=== PATIENT | female | born 1985 | race Caucasian/White ===

== ENCOUNTER 2019-09-14 08:28 | Emergency (ER) | payer OTHER, SELFPAY ==
[2019-09-14 09:10] VITALS: BP 113/79; PULSE 94; RESP 20; TEMP 36.7; O2SAT 98
[2019-09-14 09:42] LABS: Influenza Control Valid (Valid)
[2019-09-14 09:58] VITALS: BP 110/70; PULSE 90; RESP 18; O2SAT 98
--- NOTE | 2019-09-14 10:06 | ED.URI ---
HPI - URI/Sore Throat General Chief Complaint: Upper Respiratory Infection Stated Complaint: weak feeling, chills, headache Source: patient Mode of arrival: ambulatory Limitations: no limitations History of Present Illness HPI Narrative: Kayley Mondragon is a 34-year-old who woke up during the night with myalgias, bitemporal headache, and burning pain in her anterior chest when she coughs. She was seen by her PCP a week ago with sinus pain, pressure and drainage. She was started on amoxicillin those symptoms have resolved. She has history of asthma. There has been some wheezing associated with these symptoms which would respond to albuterol metered-dose inhaler. she comes in with 2 of her children both with URI symptoms. Associated symptoms: fever and chills Related Data Home Medications Medication Instructions Recorded Confirmed gabapentin 300 mg PO TID 06/14/19 09/14/19 hydrocodone-acetaminophen 5.325 tablet PO QID 06/14/19 09/14/19 lorazepam 1 mg PO TID PRN 06/14/19 09/14/19 meloxicam 1 mg PO DAILY 06/14/19 09/14/19 sumatriptan succinate See Rx Instructions .ROUTE 06/14/19 09/14/19 .COMPLEX PRN MDD 2 tablets tizanidine 4 mg PO TID 06/14/19 09/14/19 topiramate 25 mg PO BID 06/14/19 09/14/19 Allergies Allergy/AdvReac Type Severity Reaction Status Date / Time No Known Allergies Allergy Verified 02/26/18 13:03 Review of Systems Constitutional: Constitutional: Reports no additional constitutional complaints, Denies chills and Denies fever(s) ENT: Denies nasal congestion Cardiovascular: Cardiovascular: Reports no additional cardiovascular complaints Respiratory: Respiratory: Denies dyspnea Gastrointestinal: Gastrointestinal: Denies abdominal pain, Denies diarrhea and Denies vomiting Musculoskeletal: Musculoskeletal: Reports myalgias PMFSH Past Medical History Medical History Anxiety Back pain Migraine Surgical History Surgical History History of cholecystectomy Social History Social History Smoking status: Former smoker Alcohol intake: former Substance use: never Exam Const: General: no acute distress Orientation/consciousness: patient oriented x3 HENMT: Face and sinus: no sinus tenderness Mouth: Yes Normal oral and palatal mucosa present Eyes: Conjunctivae: conjunctivae normal Neck: Neck: no lymphadenopathy Chest: Chest palpation & inspection: normal inspection of the chest Resp: Auscultation: clear to auscultation bilaterally Cardio: Rate: regular rate Rhythm: regular rhythm Course Vital Signs Vital signs: Vital Signs Temperature 36.7 C 09/14/19 09:10 Pulse Rate 94 09/14/19 09:10 Respiratory Rate 20 09/14/19 09:10 Blood Pressure 113/79 09/14/19 09:10 Pulse Oximetry 98 09/14/19 09:10 Temperature 36.7 C 09/14/19 09:10 Pulse Rate 90 09/14/19 09:58 Respiratory Rate 18 09/14/19 09:58 Blood Pressure 110/70 09/14/19 09:58 Pulse Oximetry 98 09/14/19 09:58 MDM - URI/Sore Throat Differential Diagnosis Differential diagnosis: Likely upper respiratory infection, viral infection and bronchitis Lab Data Labs: Lab Results 09/14/19 Range/Units 09:10 Influenza Type A Ag Negative (Negative) Influenza Type B Ag Negative (Negative) Discharge Plan Discharge Clinical Impression: Bronchitis, Upper respiratory disease Patient Disposition: Home, Self-Care Condition: Stable Instructions: Antibiotic Form, Acute Bronchitis (ED), Viral Syndrome (ED) Prescriptions: No Action tizanidine 4 mg tablet 4 mg PO TID RF: 0 sumatriptan succinate 100 mg tablet See Rx Instructions .ROUTE .COMPLEX MDD 2 tablets PRN (Reason: Headache) RF: 0 hydrocodone-acetaminophen 5-325 mg tablet 5.325 tablet PO QID RF: 0 meloxicam 15 mg tablet 1 mg PO DAILY R
== END 2019-09-14 10:16 | disposition home or self-care (01) ==
PROVIDERS: Emergency Provider Family Medicine; PCP Internal Medicine
DX: J40 Bronchitis, not specified as acute or chronic (principal)
CPT/HCPCS: 87804; 99282; 99283

== ENCOUNTER 2019-09-18 15:11 | Outpatient (CLI) | payer OTHER, SELFPAY ==
--- NOTE | ~2019-09-18 | XR_ITS ---
EXAMINATION: XR chest 2V DATE: 09/18/2019 15:26 INDICATION: Cough, bronchitis TECHNIQUE: PA and lateral views of the chest are obtained. COMPARISON: 09/08/2012 FINDINGS: The lungs are free of acute opacities. There is no pleural effusion or pneumothorax. The ca rdiomediastinal silhouette is normal. The visualized bones and soft tissues are unremarkable. Surgica l clips in the right upper quadrant are likely from prior cholecystectomy. IMPRESSION: 1. No acute cardiopulmonary abnormality. Reviewed, dictated and finalized at location [facility]
== END 2019-09-18 15:12 | disposition home or self-care (01) ==
LOC: CHSIMG 15:14
PROVIDERS: PCP Internal Medicine; Visit Provider Internal Medicine
DX: R05 Cough (principal)
CPT/HCPCS: 71046

== ENCOUNTER 2020-01-11 15:12 | Emergency (ER) | payer OTHER, SELFPAY ==
[2020-01-11 15:14] VITALS: BP 133/83; PULSE 82; RESP 20; TEMP 36.3; O2SAT 100
[2020-01-11] MEDS: KETOROLAC 30 MG/ML VIAL (*BKC) IV PUSH (15:50)
[2020-01-11] MEDS: METOCLOPRAMIDE HCL INJ 10 MG/2 ML VIAL IV PUSH (15:51)
[2020-01-11] MEDS: SODIUM CHLORIDE 0.9% IV 1,000 ML 999 ML IV CONT (15:51)
--- NOTE | 2020-01-11 15:54 | ED.HA ---
HPI - Headache General Chief Complaint: Headache Stated Complaint: Migraine Time Seen by Provider: 01/11/20 15:29 History of Present Illness HPI Narrative: Patient is a 34-year-old female who presents to the ER with headache. Began earlier this morning is a tension headache but has become migraine. She is been having migraines since she was 8 years old. Patient had a tooth pulled at the dentist yesterday and feels like discomfort from that has caused migraine. She is out of her migraine medication cannot get a refill for 6 days. No fevers or chills or sweats. No nausea/vomiting. No drainage from the tooth site. No neck pain. She does have photophobia. Related Data Home Medications Medication Instructions Recorded Confirmed gabapentin 300 mg PO TID 06/14/19 09/14/19 hydrocodone-acetaminophen 5.325 tablet PO QID 06/14/19 09/14/19 lorazepam 1 mg PO TID PRN 06/14/19 09/14/19 meloxicam 1 mg PO DAILY 06/14/19 09/14/19 sumatriptan succinate See Rx Instructions .ROUTE 06/14/19 09/14/19 .COMPLEX PRN MDD 2 tablets tizanidine 4 mg PO TID 06/14/19 09/14/19 topiramate 25 mg PO BID 06/14/19 09/14/19 Allergies Allergy/AdvReac Type Severity Reaction Status Date / Time No Known Allergies Allergy Verified 01/11/20 15:17 Review of Systems Review of Systems: All systems reviewed & are unremarkable except as noted in HPI and below Constitutional: Constitutional: Denies chills, Denies fever(s) and Denies weakness Eyes: Eyes: Denies change in vision and Reports photophobia ENT: Denies nasal congestion and Denies sore throat Comments: Mild dental pain Neurologic: Denies syncope, Denies focal weakness and Denies numbness PMFSH Social History Social History Smoking status: Former smoker Alcohol intake: former Substance use: never Gender identity (if verbalized by the patient): Female Exam Narrative: Exam Narrative: GENERAL: Well-appearing, well-nourished, and in no acute distress. HEAD: Normocephalic, atraumatic. EYES: PERRL and EOMI. ENT: Mucous membranes moist. CHEST: Clear to auscultation. No respiratory distress. HEART: Regular rate and rhythm. Normal peripheral pulses. EXTREMITIES: Normal range of motion. No edema. NEURO: Alert and oriented x3. PSYCH: Normal mood and affect. Course Course Emergency Course: Headache aborted with Reglan/Benadryl/Toradol/IV fluid. Discharge home. Vital Signs Vital signs: Vital Signs Temperature 97.3 F L 01/11/20 15:14 Pulse Rate 82 01/11/20 15:14 Respiratory Rate 20 01/11/20 15:14 Blood Pressure 133/83 01/11/20 15:14 Pulse Oximetry 100 01/11/20 15:14 Temperature 97.3 F L 01/11/20 15:14 Pulse Rate 82 01/11/20 15:14 Respiratory Rate 20 01/11/20 15:14 Blood Pressure 133/83 01/11/20 15:14 Pulse Oximetry 100 01/11/20 15:14 Discharge Plan Discharge Clinical Impression: Migraine Patient Disposition: Home, Self-Care Condition: Stable Instructions: Migraine Headache (ED) Additional Instructions: Return to the ER if you have fever over 100.4 ?F, you cannot keep down food or water, you have chest pain or shortness of breath, you have additional concerns. Prescriptions: No Action tizanidine 4 mg tablet 4 mg PO TID RF: 0 sumatriptan succinate 100 mg tablet See Rx Instructions .ROUTE .COMPLEX MDD 2 tablets PRN (Reason: Headache) RF: 0 hydrocodone-acetaminophen 5-325 mg tablet 5.325 tablet PO QID RF: 0 meloxicam 15 mg tablet 1 mg PO DAILY RF: 0 topiramate 25 mg tablet 25 mg PO BID RF: 0 gabapentin 300 mg capsule 300 mg PO TID RF: 0 lorazepam 1 mg tablet 1 mg PO TID PRN (Reason: Anxiety) RF: 0 Follow-up/Referrals: Guillermo,Kal Regan MD [Primary Care Provider] - 1 Week
--- NOTE | 2020-01-11 16:41 | PC.NURSE ---
Sleeping. In no distress.
== END 2020-01-11 17:10 | disposition home or self-care (01) ==
PROVIDERS: Emergency Provider Emergency Medicine; PCP Internal Medicine
DX: G43.909 Migraine, unspecified, not intractable, without status migrainosus (principal); Z87.891 Personal history of nicotine dependence
CPT/HCPCS: 96361; 96374; 96375; 99284; J1200; J1885; J2765; J7030

== ENCOUNTER 2020-02-02 17:09 | Emergency (ER) | payer OTHER, SELFPAY ==
[2020-02-02 17:25] VITALS: BP 108/63; PULSE 79; RESP 17; TEMP 37.1; O2SAT 98
--- NOTE | 2020-02-02 17:34 | ED.LOWEXIN ---
HPI - Extremity Injury (Lower) General Chief Complaint: Extremity Problem,Nontraumatic Stated Complaint: pain in both big toes Time Seen by Provider: 02/02/20 17:34 Source: patient Mode of arrival: ambulatory Limitations: no limitations History of Present Illness HPI Narrative: 34-year-old woman comes in today complaining of bilateral great toe pain and drainage from around her great toenails. She states that on January 22 she had revision of that nail plates bilaterally. She states that she began notice increasing pain and drainage from her nose yesterday. She denies fever, nausea, vomiting or red streaks going up her legs. She states she had some leftover Augmentin that she began taking yesterday. Onset (ago): day(s) (2) Injury: Bilateral: toes (hallux) Place: home Severity: moderate Relieving factors: nothing Exacerbating factors: palpation Context: walking Associated symptoms: swelling and ambulatory Related Data Home Medications Medication Instructions Recorded Confirmed gabapentin 300 mg PO TID 06/14/19 02/02/20 hydrocodone-acetaminophen 5.325 tablet PO QID 06/14/19 02/02/20 lorazepam 1 mg PO TID PRN 06/14/19 02/02/20 meloxicam 1 mg PO DAILY 06/14/19 02/02/20 sumatriptan succinate See Rx Instructions .ROUTE 06/14/19 02/02/20 .COMPLEX PRN MDD 2 tablets tizanidine 4 mg PO TID 06/14/19 02/02/20 topiramate 25 mg PO BID 06/14/19 02/02/20 Allergies Allergy/AdvReac Type Severity Reaction Status Date / Time No Known Allergies Allergy Verified 01/11/20 15:17 Review of Systems Constitutional: Constitutional: Denies chills and Denies fever(s) ENT: Denies dysphagia, Denies nasal congestion and Denies sore throat Cardiovascular: Cardiovascular: Denies chest pain and Denies radiating jaw, neck or arm pain Respiratory: Respiratory: Denies cough, Denies dyspnea and Denies wheezing Gastrointestinal: Gastrointestinal: Denies nausea and Denies vomiting Integumentary/Breasts: Skin/Breast: Denies pruritus, Denies rash and Denies skin ulcer Neurologic: Denies vertigo, Denies dizziness and Denies syncope Hematologic/Lymphatic: Hematologic/Lymphatic: Denies easy bleeding and Denies easy bruising Allergic/Immunologic: Allergic/Immunologic: Denies lip swelling and Denies wheezing PMFSH Past Medical History Medical History Anxiety Back pain Migraine Surgical History Surgical History History of cholecystectomy Social History Social History Smoking status: Former smoker Alcohol intake: former Substance use: never Gender identity (if verbalized by the patient): Female Exam Const: General: alert Orientation/consciousness: patient oriented x3 Limitations: no limitations Other: Mild acute distress. Resp: Effort & Inspection: normal respiratory effort and not labored Auscultation: clear to auscultation bilaterally, no rales, no rhonchi and no wheezes Cardio: Rate: regular rate Rhythm: regular rhythm Heart sounds: no murmurs Skin: General skin exam: normal color, no jaundice and no pallor Rashes: no rashes Other: Both nail plates have been modified on the medial and lateral aspects. There is pus draining from the eponychial fold bilaterally. She has mild dorsal swelling more on the left than the right. There is no tenderness or induration to palpation of the heads of either toe. There is no lymphangitis or tenderness proximal to the IP joint Neuro: General: patient oriented x3, moves all extremities, no focal motor deficits and CN's II-XI intact bilaterally Speech: normal speech Extrem: General: normal to inspection and no clubbing, cyanosis or edema Psych: Appearance: grossly normal and well kempt Mental Status: mental status grossly normal Affect: normal affect Attitude: cooperative Thought content: Yes Normal thought cont
[2020-02-02 17:52] VITALS: RESP 16
== END 2020-02-02 17:56 | disposition home or self-care (01) ==
PROVIDERS: Emergency Provider Emergency Medicine; PCP Internal Medicine
DX: L03.032 Cellulitis of left toe (principal); L03.031 Cellulitis of right toe
CPT/HCPCS: 99283

== ENCOUNTER 2020-05-08 12:35 | Emergency (ER) | payer OTHER, SELFPAY ==
[2020-05-08 12:49] VITALS: BP 130/83; PULSE 73; RESP 18; TEMP 36.8; O2SAT 100
--- NOTE | 2020-05-08 12:51 | ED.GENADULT ---
HPI - General Adult General Chief complaint: Headache Stated complaint: migraine Time Seen by Provider: 05/08/20 12:41 Source: RN notes reviewed History of Present Illness HPI narrative: Patient presents to emergency department from home for headache. Patient that she has a history of migraine headaches which she has approximately 2-3 times a week. Says she woke up with a migraine this morning took Imitrex with minimal relief and continues to have the headache. States is associated with nausea and photophobia she denies any fevers or chills chest pain shortness of breath abdominal pain or any other symptoms. She does state that she took a [place] approximately 2 hours ago Related Data Home Medications Medication Instructions Recorded Confirmed gabapentin 300 mg PO TID 06/14/19 02/02/20 hydrocodone-acetaminophen 5.325 tablet PO QID 06/14/19 02/02/20 lorazepam 1 mg PO TID PRN 06/14/19 02/02/20 meloxicam 1 mg PO DAILY 06/14/19 02/02/20 sumatriptan succinate See Rx Instructions .ROUTE 06/14/19 02/02/20 .COMPLEX PRN MDD 2 tablets tizanidine 4 mg PO TID 06/14/19 02/02/20 topiramate 25 mg PO BID 06/14/19 02/02/20 Allergies Allergy/AdvReac Type Severity Reaction Status Date / Time No Known Allergies Allergy Verified 05/08/20 12:54 Review of Systems Review of Systems: Narrative: Gen.: Denies fevers or chills Eyes: Denies eye pain or visual change ENT: Denies congestion Respiratory: Denies shortness of breath or cough CV: Denies chest pain or palpitations GI: Denies abdominal pain nausea, emesis or diarrhea denies burning, urgency, frequency or hematuria Musculoskeletal: Denies back pain or muscle pain Neuro: HPI Skin: Denies rash Except as documented, all other systems reviewed and negative [facility] Past Medical History Medical History (Updated 05/08/20 @ 16:55 by Vinny Sheldon DO) Anxiety Back pain Migraine Surgical History Surgical History History of cholecystectomy Social History Social History Smoking status: Former smoker Alcohol intake: former Substance use: never Gender identity (if verbalized by the patient): Female Exam Narrative: Exam Narrative: APPEARANCE: No acute distress, nontoxic, resting in bed EYES: EOMI, PERRL HEENT: Normocephalic, atraumatic, OMM RESPIRATORY: No respiratory distress Clear to auscultation bilaterally with no rhonchi wheezing or rales. CARDIOVASCULAR: Regular rate and rhythm without murmurs rubs or gallops. ABDOMINAL: Soft, nontender, nondistended, no rebound or guarding MUSCULOSKELETAl: Moves all extremities. No clubbing, cyanosis or edema. NEURO: Awake and alert x 3. Following commands, speech normal, no focal deficits SKIN:: Warm, dry. No rashes lesions or abrasions PSYCHIATRIC: Normal affect/mood, Course Course Emergency Course: Reviewed old records Patient states headache is resolved at this time and is ready for discharge Discussed with patient results of workup and diagnosis. Discussed need for follow-up with primary care, proper use of medication, and reasons to return to the emergency department. Patient understands and agrees to current treatment plan Vital Signs Vital signs: Vital Signs Temperature 98.3 F 05/08/20 12:49 Pulse Rate 73 05/08/20 12:49 Respiratory Rate 18 05/08/20 12:49 Blood Pressure 130/83 05/08/20 12:49 Pulse Oximetry 100 05/08/20 12:49 Temperature 98.3 F 05/08/20 12:49 Pulse Rate 65 05/08/20 15:28 Respiratory Rate 15 05/08/20 15:28 Blood Pressure 121/82 05/08/20 15:28 Pulse Oximetry 99 05/08/20 15:28 Medical Decision Making MDM Narrative Medical decision making narrative: Patient's headache was not sudden or maximal in onset. There are no focal deficits on exam. Subarachnoid hemorrhage is felt to be unlikely at this time. There is no history of fever and neck is supple to e
[2020-05-08] MEDS: ONDANSETRON INJ 4 MG/2 ML VIAL IV PUSH (13:11)
[2020-05-08] MEDS: KETOROLAC 30 MG/ML VIAL (*BKC) IV PUSH (13:11)
[2020-05-08] MEDS: diphenhydrAMINE HCl INJ 50 MG/ML VIAL 25 MG IV PUSH (13:11)
[2020-05-08] MEDS: SODIUM CHLORIDE 0.9% IV 1,000 ML 999 ML IV CONT ×2 (13:11→15:26)
[2020-05-08 15:28] VITALS: BP 121/82; PULSE 65; RESP 15; O2SAT 99
[2020-05-08 17:06] VITALS: BP 112/83; PULSE 73; RESP 20; O2SAT 98
== END 2020-05-08 17:08 | disposition home or self-care (01) ==
PROVIDERS: Emergency Provider Emergency Medicine; PCP Internal Medicine
DX: R51.9 Headache, unspecified (principal); F41.9 Anxiety disorder, unspecified; Z87.891 Personal history of nicotine dependence
CPT/HCPCS: 96361; 96374; 96375; 99284; J0131; J1200; J1885; J2405; J7030

== ENCOUNTER 2021-03-14 12:54 | Emergency (ER) | payer OTHER, SELFPAY ==
[2021-03-14 13:43] VITALS: BP 148/98; PULSE 81; RESP 20; TEMP 36.6; O2SAT 98
[2021-03-14] MEDS: SUMAtriptan SUCCINATE 6 MG/0.5 ML VIAL SUB-Q (14:05)
--- NOTE | 2021-03-14 14:25 | ED.HA ---
HPI - Headache General Chief Complaint: Headache Stated Complaint: headache Time Seen by Provider: 03/14/21 12:56 Source: patient and RN notes reviewed Mode of arrival: ambulatory Limitations: no limitations History of Present Illness MD elicited complaint: headache and migraine Pertinent past history: migraines Onset (ago): hour(s) (4) Onset description: suddenly Location: frontal and generalized Severity: mild Quality & Timing: aching, throbbing, dull and similar to previous headaches Exacerbating factors: none Relieving factors: prescription medication Context: occurred at rest Treatments prior to arrival: prescription analgesic Related Data Home Medications Medication Instructions Recorded Confirmed gabapentin 300 mg PO TID 06/14/19 03/14/21 hydrocodone-acetaminophen 5.325 tablet PO QID 06/14/19 03/14/21 lorazepam 1 mg PO TID PRN 06/14/19 03/14/21 sumatriptan succinate See Rx Instructions .ROUTE 06/14/19 03/14/21 .COMPLEX PRN MDD 2 tablets tizanidine 4 mg PO TID 06/14/19 03/14/21 topiramate 25 mg PO BID 06/14/19 03/14/21 Allergies Allergy/AdvReac Type Severity Reaction Status Date / Time No Known Allergies Allergy Verified 03/14/21 13:55 Review of Systems Review of Systems: All systems reviewed & are unremarkable except as noted in HPI and below PMFSH Past Medical History Medical History Anxiety Back pain Migraine Surgical History Surgical History History of cholecystectomy Social History Social History Smoking status: Former smoker Alcohol intake: former Substance use: never Gender identity (if verbalized by the patient): Female Exam Const: General: healthy appearing, no acute distress and alert Orientation/consciousness: patient oriented x3 HENMT: Head: normal to inspection Ears: external ears normal and TM's normal bilaterally General nose exam: Normal external nose present and Normal nares present Mouth: Yes lip normal and Yes moist mucous membranes abnormal Teeth and gingiva: dentition normal Eyes: Conjunctivae: conjunctivae normal Pupils: Equal, round and reactive pupils present EOM: EOMs intact bilaterally Neck: Neck: normal visual inspection and no lymphadenopathy Chest: Chest palpation & inspection: normal inspection of the chest Resp: Effort & Inspection: normal respiratory effort Auscultation: clear to auscultation bilaterally Cardio: Rate: regular rate Rhythm: regular rhythm GI: GI Palp: Yes Soft to palpation Percussion: Yes normal to percussion (non-tender) Auscultation: normal bowel sounds : General: Yes bladder normal to palpation and Yes no CVA tenderness Back/Spine/Pelvis: Back: no CVA tenderness Skin: General skin exam: normal color Rashes: no rashes Neuro: General: patient oriented x3, moves all extremities, no focal motor deficits and CN's II-XI intact bilaterally Extrem: General: normal to inspection and no pedal edema Psych: Appearance: grossly normal and well kempt Mental Status: mental status grossly normal Affect: normal affect Thought content: Yes Normal thought content present Course Course Emergency Course: Pt was stable with less ARIZA in the ED. For home with Rx. Reevaluation(s) Reevaluation #1: less ARIZA, pt was comfortable. VSS. Date: 03/14/21 Time: 14:29 Vital Signs Vital signs: Vital Signs Temperature 36.6 C 03/14/21 13:43 Pulse Rate 81 03/14/21 13:43 Respiratory Rate 20 03/14/21 13:43 Blood Pressure 148/98 H 03/14/21 13:43 Pulse Oximetry 98 03/14/21 13:43 Temperature 36.9 C 03/14/21 14:57 Pulse Rate 77 03/14/21 14:57 Respiratory Rate 20 03/14/21 14:57 Blood Pressure 136/96 H 03/14/21 14:57 Pulse Oximetry 99 03/14/21 14:57 MDM - Headache Differential Diagnosis Differential diagnosis: Likely migraine, tensio
[2021-03-14 14:57] VITALS: BP 136/96; PULSE 77; RESP 20; TEMP 36.9; O2SAT 99
== END 2021-03-14 15:00 | disposition home or self-care (01) ==
PROVIDERS: Emergency Provider Emergency Medicine; PCP Internal Medicine
DX: G43.909 Migraine, unspecified, not intractable, without status migrainosus (principal)
CPT/HCPCS: 96372; 99283; J3030

== ENCOUNTER → 2021-04-01 02:58 | Outpatient (CLI) | payer OTHER, SELFPAY ==
[2021-04-02 18:57] LABS: SARS-CoV-2 RNA PCR Positive
== END ==
PROVIDERS: PCP Internal Medicine; Visit Provider Internal Medicine
DX: U07.1 COVID-19 (principal)
CPT/HCPCS: C9803; U0003; U0005

== ENCOUNTER 2021-04-06 10:13 | Emergency (ER) | payer OTHER, SELFPAY ==
[2021-04-06 10:35] VITALS: BP 136/96; PULSE 84; RESP 18; TEMP 36.4; O2SAT 99
--- NOTE | 2021-04-06 10:37 | ED.HA ---
HPI - Headache General Chief Complaint: Headache Stated Complaint: migraine/Covid + quar end 04/08 Time Seen by Provider: 04/06/21 10:37 Source: patient Mode of arrival: ambulatory Limitations: no limitations History of Present Illness HPI Narrative: 35-year-old woman with long history of migraine headaches comes in today complaining of throbbing right-sided head pain that is typical for her migraines. She stated it started a couple of days ago but she is out of her medication to abort the headache. She has had some vomiting but denies fever, neck stiffness, focal weakness, numbness, and visual changes other than photophobia. MD elicited complaint: migraine Onset (ago): day(s) Onset description: gradually Location: right, frontal and temporal Severity: severe Quality & Timing: throbbing Exacerbating factors: light Relieving factors: nothing Context: occurred at rest Associated symptoms: vomiting Treatments prior to arrival: none Related Data Home Medications Medication Instructions Recorded Confirmed gabapentin 300 mg PO TID 06/14/19 04/06/21 hydrocodone-acetaminophen 5.325 tablet PO QID 06/14/19 04/06/21 sumatriptan succinate See Rx Instructions .ROUTE 06/14/19 04/06/21 .COMPLEX PRN MDD 2 tablets tizanidine 4 mg PO TID 06/14/19 04/06/21 topiramate 25 mg PO BID 06/14/19 04/06/21 benzonatate 200 mg PO PRN 04/06/21 04/06/21 montelukast 10 mg PO DAILY 04/06/21 04/06/21 sertraline 100 mg PO DAILY 04/06/21 04/06/21 Allergies Allergy/AdvReac Type Severity Reaction Status Date / Time No Known Allergies Allergy Verified 03/14/21 13:55 Review of Systems Review of Systems: All systems reviewed & are unremarkable except as noted in HPI and below Constitutional: Constitutional: Denies chills, Denies fever(s) and Denies weakness Eyes: Eyes: Denies change in vision and Reports photophobia ENT: Reports nasal congestion and Denies sore throat Cardiovascular: Cardiovascular: Denies chest pain and Denies radiating jaw, neck or arm pain Respiratory: Respiratory: Reports cough, Denies dyspnea and Denies wheezing Gastrointestinal: Gastrointestinal: Denies abdominal pain, Reports nausea and Reports vomiting Musculoskeletal: Musculoskeletal: Reports back pain ( Chronic), Denies arthralgias and Denies joint swelling Integumentary/Breasts: Skin/Breast: Denies pruritus, Denies erythema and Denies rash Neurologic: Denies confusion, Denies vertigo, Denies dizziness, Denies syncope, Denies focal weakness and Reports numbness ( chronic lower extremity) Hematologic/Lymphatic: Hematologic/Lymphatic: Denies easy bleeding and Denies easy bruising Allergic/Immunologic: Allergic/Immunologic: Denies lip swelling and Denies throat swelling PMFSH Past Medical History Medical History Anxiety Back pain Migraine Surgical History Surgical History History of cholecystectomy Social History Social History Smoking status: Former smoker Alcohol intake: former Substance use: never Gender identity (if verbalized by the patient): Female Exam Const: General: healthy appearing and alert Orientation/consciousness: patient oriented x3 Limitations: no limitations Other: [id number] acute distress. HENMT: Head: normal to inspection Ears: TM's normal bilaterally and EAC's normal General nose exam: Normal nares present Face and sinus: normal facial exam Mouth: Yes moist mucous membranes abnormal Throat: posterior oropharynx normal Eyes: Conjunctivae: conjunctivae normal Pupils: Equal, round and reactive pupils present EOM: EOMs intact bilaterally Resp: Effort & Inspection: normal respiratory effort and not labored Auscultation: clear to auscultation bilaterally, no rales, no rhonchi and no wheezes Cardio: Rate: regular rate Rhythm: regular rhythm Hear
[2021-04-06] MEDS: SUMAtriptan SUCCINATE 6 MG/0.5 ML VIAL SUB-Q (10:54)
[2021-04-06 11:19] VITALS: BP 130/80; PULSE 77; RESP 18; TEMP 36.6; O2SAT 99
== END 2021-04-06 11:21 | disposition home or self-care (01) ==
PROVIDERS: Emergency Provider Emergency Medicine; PCP Internal Medicine
DX: G43.909 Migraine, unspecified, not intractable, without status migrainosus (principal)
CPT/HCPCS: 96372; 99283; J3030

== ENCOUNTER 2021-07-01 18:01 | Emergency (ER) | payer OTHER, SELFPAY ==
[2021-07-01 18:14] VITALS: BP 146/99; PULSE 78; RESP 18; TEMP 36.8; O2SAT 99
--- NOTE | 2021-07-01 18:39 | ED.HA ---
HPI - Headache General Chief Complaint: Headache Stated Complaint: migraine Source: patient Mode of arrival: ambulatory Limitations: no limitations History of Present Illness HPI Narrative: This is a 36-year-old female with a history of migraines that presents with her typical migraine headache with throbbing light sensitivity affecting the right eye with some blurry vision light sensitivity with some nausea with some no vomiting no chest pain no shortness of breath no fever or chills no neck pain or stiffness. MD elicited complaint: headache and migraine Pertinent past history: migraines Onset (ago): hour(s) Onset description: gradually Location: right and frontal Severity: moderate Quality & Timing: throbbing and pulsatile Related Data Home Medications Medication Instructions Recorded Confirmed gabapentin 300 mg PO TID 06/14/19 04/06/21 hydrocodone-acetaminophen 5.325 tablet PO QID 06/14/19 04/06/21 sumatriptan succinate See Rx Instructions .ROUTE 06/14/19 04/06/21 .COMPLEX PRN MDD 2 tablets tizanidine 4 mg PO TID 06/14/19 04/06/21 topiramate 25 mg PO BID 06/14/19 04/06/21 benzonatate 200 mg PO PRN 04/06/21 04/06/21 montelukast 10 mg PO DAILY 04/06/21 04/06/21 sertraline 100 mg PO DAILY 04/06/21 04/06/21 Allergies Allergy/AdvReac Type Severity Reaction Status Date / Time No Known Allergies Allergy Verified 07/01/21 18:14 Review of Systems Review of Systems: All systems reviewed & are unremarkable except as noted in HPI and below PMFSH Past Medical History Medical History Anxiety Back pain Migraine Surgical History Surgical History History of cholecystectomy Social History Social History Smoking status: Former smoker Alcohol intake: former Substance use: never Gender identity (if verbalized by the patient): Female Exam Const: General: no acute distress Orientation/consciousness: patient oriented x3 HENMT: Head: normal to inspection Eyes: Conjunctivae: conjunctivae normal Pupils: Equal, round and reactive pupils present Direct Ophthalmoscopy: photophobia Neck: Neck: normal visual inspection, no lymphadenopathy and no meningeal signs Chest: Chest palpation & inspection: normal inspection of the chest Resp: Effort & Inspection: normal respiratory effort Auscultation: clear to auscultation bilaterally Cardio: Rate: regular rate Rhythm: regular rhythm GI: GI Palp: Yes Soft to palpation Percussion: Yes normal to percussion : General: Yes no CVA tenderness Urinary Catheter: Urinary Catheter: patent and draining Back/Spine/Pelvis: Back: no CVA tenderness Skin: General skin exam: normal color Rashes: no rashes Neuro: General: patient oriented x3, moves all extremities, no meningeal signs and no focal motor deficits Extrem: General: normal to inspection and no pedal edema Psych: Mental Status: mental status grossly normal Affect: normal affect Course Course Emergency Course: Toradol and Zofran given to patient with some moderate relief. Vital Signs Vital signs: Vital Signs Temperature 36.8 C 07/01/21 18:14 Pulse Rate 78 07/01/21 18:14 Respiratory Rate 18 07/01/21 18:14 Blood Pressure 146/99 H 07/01/21 18:14 Pulse Oximetry 99 07/01/21 18:14 Temperature 36.8 C 07/01/21 18:14 Pulse Rate 78 07/01/21 18:14 Respiratory Rate 18 07/01/21 18:14 Blood Pressure 146/99 H 07/01/21 18:14 Pulse Oximetry 99 07/01/21 18:14 Critical Care Time Critical Care Time Critical Care Time: No Discharge Plan Discharge Clinical Impression: Migraine Qualifiers: Migraine type: with aura Status migrainosus presence: without status migrainosus Intractability: not intractable Qualified Code(s): G43.109 - Migraine with aura, not intractable, without status migrainosus Patient
[2021-07-01] MEDS: KETOROLAC (*BKC) 60 MG/2 ML VIAL IM (18:41)
[2021-07-01] MEDS: ONDANSETRON HCL ODT 4 MG TABLET PO (18:42)
== END 2021-07-01 18:58 | disposition home or self-care (01) ==
PROVIDERS: Emergency Provider Emergency Medicine; PCP Internal Medicine
DX: G43.109 Migraine with aura, not intractable, without status migrainosus (principal)
CPT/HCPCS: 96372; 99283; A9270; J1885

== ENCOUNTER 2022-03-24 15:27 | Emergency (ER) | payer OTHER, SELFPAY ==
[2022-03-24 15:30] VITALS: BP 147/90; PULSE 98; RESP 18; TEMP 36.4; O2SAT 100
[2022-03-24] MEDS: SODIUM CHLORIDE 0.9% IV 500 ML 999 ML IV CONT (16:02)
[2022-03-24] MEDS: KETOROLAC 30 MG/ML VIAL (*BKC) IV PUSH (16:03)
--- NOTE | 2022-03-24 16:22 | ED.HA ---
HPI - Headache General Chief Complaint: Headache Stated Complaint: migraine Time Seen by Provider: 03/24/22 15:38 Source: patient Mode of arrival: ambulatory History of Present Illness HPI Narrative: this is a 36-year-old female with a history of migraines that presents with her typical migraine from a right-sided throbbing sensitive to light and sound, started earlier today has infection of her right upper molar area and believes this exacerbated her her migraine headache, currently rates her pain about a 7/10 with no nausea no vomiting no fever chills. MD elicited complaint: headache and migraine Onset (ago): hour(s) Onset description: gradually Related Data Home Medications Medication Instructions Recorded Confirmed hydrocodone 5 mg-acetaminophen 325 5.325 tablet PO QID 06/14/19 03/24/22 mg tablet sumatriptan succinate 100 mg tablet See Rx Instructions .Route 06/14/19 03/24/22 .COMPLEX PRN Headache tizanidine 4 mg tablet 4 mg PO TID 06/14/19 03/24/22 montelukast 10 mg tablet 10 mg PO DAILY 04/06/21 03/24/22 sertraline 100 mg tablet 100 mg PO DAILY 04/06/21 03/24/22 Allergies Allergy/AdvReac Type Severity Reaction Status Date / Time No Known Allergies Allergy Verified 03/24/22 15:43 Review of Systems Review of Systems: All systems reviewed & are unremarkable except as noted in HPI and below PMFSH Past Medical History Medical History Anxiety Back pain Migraine Surgical History Surgical History History of cholecystectomy Social History Social History Smoking status: Former smoker Alcohol intake: former Substance use: never Gender identity (if verbalized by the patient): Female Exam Const: General: healthy appearing and no acute distress Limitations: no limitations HENMT: Head: normal to inspection Face and sinus: normal facial exam Mouth: Yes Normal oral and palatal mucosa present Eyes: Conjunctivae: conjunctivae normal EOM: EOMs intact bilaterally Direct Ophthalmoscopy: no photophobia Neck: Neck: normal visual inspection Chest: Chest palpation & inspection: normal inspection of the chest Resp: Effort & Inspection: normal respiratory effort Auscultation: clear to auscultation bilaterally Cardio: Rate: regular rate Rhythm: regular rhythm GI: GI Palp: Yes Soft to palpation Auscultation: normal bowel sounds Skin: General skin exam: normal color Rashes: no rashes Wounds: no wounds Neuro: General: patient oriented x3, moves all extremities and no meningeal signs Extrem: General: normal to inspection and no clubbing, cyanosis or edema Psych: Mental Status: mental status grossly normal Course Course Emergency Course: Patient received IV fluids and a dose of Toradol, headache has improved, and will be sending antibiotics for a dental abscess. Vital Signs Vital signs: Vital Signs Temperature 36.4 C L 03/24/22 15:30 Pulse Rate 98 03/24/22 15:30 Respiratory Rate 18 03/24/22 15:30 Blood Pressure 147/90 H 03/24/22 15:30 Pulse Oximetry 100 03/24/22 15:30 Oxygen Delivery Room Air 03/24/22 15:30 Temperature 36.4 C L 03/24/22 15:30 Pulse Rate 98 03/24/22 15:30 Respiratory Rate 18 03/24/22 15:30 Blood Pressure 147/90 H 03/24/22 15:30 Pulse Oximetry 100 03/24/22 15:30 Oxygen Delivery Room Air 03/24/22 15:30 Critical Care Time Critical Care Time Critical Care Time: No Discharge Plan Discharge Clinical Impression: Dental abscess Migraine Qualifiers: Migraine type: unspecified Status migrainosus presence: without status migrainosus Intractability: not intractable Qualified Code(s): G43.909 - Migraine, unspecified, not intractable, without status migrainosus Patient Disposition: Home, Self-Care Condition: Stable Instructions: Antibiotic Form, De
[2022-03-24 16:50] VITALS: BP 141/79; PULSE 84; RESP 16; TEMP 36.4; O2SAT 100
== END 2022-03-24 16:50 | disposition home or self-care (01) ==
PROVIDERS: Emergency Provider Emergency Medicine; PCP Internal Medicine
DX: G43.909 Migraine, unspecified, not intractable, without status migrainosus (principal)
CPT/HCPCS: 96361; 96374; 99284; J1885; J7040

== ENCOUNTER 2022-04-17 18:44 | Emergency (ER) | payer OTHER, SELFPAY ==
--- NOTE | ~2022-04-17 | XR_ITS ---
XR chest 1V portable DATE: 04/17/2022 19:22 INDICATION: Cough, wheezing for 2 days TECHNIQUE: Portable AP chest COMPARISON: September 18, 2019 PA and lateral chest FINDINGS: Normal heart size. No hilar or mediastinal enlargement. No pulmonary infiltrate or consolid ation, pleural effusion or pulmonary vascular congestion or pneumothorax is detected. Old healed fracture of the right clavicular shaft. IMPRESSION: No active cardiopulmonary disease Reviewed, dictated and finalized at location A.
[2022-04-17 18:48] VITALS: BP 140/97; PULSE 97; RESP 20; TEMP 36.3; O2SAT 97
--- NOTE | 2022-04-17 19:04 | PC.NURSE ---
report to LITA Graves
[2022-04-17] MEDS: methylPREDNISolone SOD SUCC 125 MG VIAL IM (19:24)
[2022-04-17] MEDS: cefTRIAXone 1 GM, LIDOCAINE HCL 1% LOCAL INJ 2.1 ML IM (19:26)
[2022-04-17 19:40] VITALS: PULSE 88; RESP 19; O2SAT 98
[2022-04-17 19:52] VITALS: PULSE 88; RESP 19; O2SAT 98
[2022-04-17] MEDS: IPRATROPIUM 0.5 MG/ALBUTEROL SULFATE 2.5 MG AMPUL.NEB 3 ML INHALATION (19:54)
[2022-04-17 19:57] LABS: Base Excess ABG -0.9 mmol/L (0-2); Basophils Absolute Auto 0.06 K/mm3 (0.00-0.10); Basophils Percent Auto 0.6 % (0.0-1.0); Eosinophils Absolute Auto 0.28 K/mm3 (0.02-0.50); Eosinophils Percent Auto 2.9 % (1.0-6.0); HCO3 ABG 21.9 mmol/L (23-29); Hematocrit 40.4 % (35.0-49.0); Hemoglobin 13.7 g/dL (12.0-15.0); Immature Granulocyte Absolute 0.02 K/mm3 (0.00-0.00); Immature Granulocyte Percent A 0.2 % (0.0-0.0); Lymphocytes Absolute Auto 2.89 K/mm3 (1.10-4.50); Lymphocytes Percent Auto 30.1 % (18.0-42.0); Mean Corpuscular HGB Conc 33.9 g/dL (32.0-36.0); Mean Corpuscular Volume 85.4 fL (78.0-102.0); Monocytes Absolute Auto 0.46 K/mm3 (0.10-0.90); Monocytes Percent Auto 4.8 % (2.0-11.0); Neutrophils Absolute Auto 5.9 K/mm3 (1.7-7.2); Neutrophils Percent Auto 61.4 % (50.0-70.0); Oxygen Content ABG 19.4 %vol (16.0-22.0); Oxygen Saturation ABG 93.2 % (95-97); Oxyhemoglobin 92.6 % (94-100); PCO2 ABG 31.5 mmHg (35-45); PO2 ABG 60.9 mmHg (80-90); Platelet Count Result 254 K/mm3 (150-420); Red Blood Count 4.73 M/mm3 (4.20-5.40); Red Cell Distribution Width 12.6 % (11.6-14.4); Total Hemoglobin 14.9 g/dL (12.0-18.0); White Blood Count 9.6 K/mm3 (4.8-10.8); pH ABG 7.46 (7.35-7.45)
[2022-04-17 19:58] LABS: Device ROOM AIR; Modified Allen's Test Pass; Site Drawn LEFT RADIAL
[2022-04-17 20:11] LABS: Alanine Aminotransferase 34 U/L (14-59); Albumin Level 4.1 g/dL (3.4-5.0); Alkaline Phosphatase 136 U/L (46-116); Anion Gap 10 mmol/L (8-16); Aspartate Amino Transferase 18 U/L (15-37); Bilirubin,Total 0.3 mg/dL (0.00-1.00); Blood Urea Nitrogen 9 mg/dL (7-18); Calcium 9.4 mg/dL (8.5-10.1); Carbon Dioxide 24 mmol/L (21-32); Chloride 105 mmol/L (98-108); Estimated CRCL calculation 98 ml/min; Estimated Glomerular Filt Rate > 60; Glucose 103 mg/dL (70-99); Osmolality Calculated 286 mOsm/kg (285-295); Potassium 3.8 mmol/L (3.5-5.1); Sodium 139 mmol/L (136-145); Total Protein 8.1 g/dL (6.4-8.2)
[2022-04-17] MEDS: guaiFENesin 12 HR 600 MG TABCR PO (20:13)
--- NOTE | 2022-04-17 20:33 | ED.URI ---
HPI - URI/Sore Throat General Chief Complaint: Upper Respiratory Infection Stated Complaint: sinus inf, cough Time Seen by Provider: 04/17/22 18:48 Source: patient and RN notes reviewed Mode of arrival: ambulatory Limitations: no limitations History of Present Illness MD elicited complaint: cough, sore throat and nasal congestion Pertinent past history: asthma Onset (ago): day(s) (3) Consistency: progressively worsening Severity: moderate Description of mucous: yellow Able to tolerate fluids by mouth: Yes Exacerbating factors: nothing Relieving factors: OTC cold medicine and other (albuterol MDI) Associated symptoms: nasal congestion, sore throat, cough and shortness of breath Treatments prior to arrival: cold medicine Related Data Home Medications Medication Instructions Recorded Confirmed sumatriptan succinate 100 mg tablet See Rx Instructions .Route 06/14/19 04/17/22 .COMPLEX PRN Headache tizanidine 4 mg tablet 4 mg PO TID 06/14/19 04/17/22 montelukast 10 mg tablet 10 mg PO DAILY 04/06/21 04/17/22 sertraline 100 mg tablet 100 mg PO DAILY 04/06/21 04/17/22 Allergies Allergy/AdvReac Type Severity Reaction Status Date / Time No Known Allergies Allergy Verified 03/24/22 15:43 Review of Systems Review of Systems: All systems reviewed & are unremarkable except as noted in HPI and below Constitutional: Constitutional: Reports no additional constitutional complaints Eyes: Eyes: Reports no additional eye complaints ENT: Reports system reviewed and no additional complaints, except as documented Cardiovascular: Cardiovascular: Reports no additional cardiovascular complaints Respiratory: Respiratory: Reports chest congestion, Reports cough, Reports dyspnea and Reports wheezing Gastrointestinal: Gastrointestinal: Reports no additional gastrointestinal complaints Genitourinary: Genitourinary: Reports no additional female genitourinary complaints Musculoskeletal: Musculoskeletal: Reports no additional musculoskeletal complaints Integumentary/Breasts: Skin/Breast: Reports system reviewed and no additional complaints, except as docu Neurologic: Reports system reviewed and no additional complaints, except as documented Psychiatric: Psychiatric: Reports no additional psychiatric complaints Endocrine: Endocrine: Reports no additional endocrine complaints Hematologic/Lymphatic: Hematologic/Lymphatic: Reports no additional hematologic/lymphatic complaints Allergic/Immunologic: Allergic/Immunologic: Reports no additional allergic/immunologic complaints PMFSH Past Medical History Medical History Anxiety Asthma exacerbation Back pain Bronchitis Migraine Viral infection Surgical History Surgical History History of cholecystectomy Social History Social History Smoking status: Former smoker Alcohol intake: former Substance use: never Gender identity (if verbalized by the patient): Female Exam Const: General: no acute distress Nutritional Appearance: well nourished Orientation/consciousness: patient oriented x3 Limitations: no limitations HENMT: Head: normal to inspection Ears: external ears normal, TM's normal bilaterally and EAC's normal General nose exam: Normal external nose present and Normal nares present Face and sinus: normal facial exam and sinuses nontender Mouth: Yes Normal oral and palatal mucosa present and Yes moist mucous membranes Teeth and gingiva: dentition normal Other: mild pharyngeal redness Eyes: Conjunctivae: conjunctivae normal Pupils: Equal, round and reactive pupils present EOM: EOMs intact bilaterally Neck: Neck: normal visual inspection, no lymphadenopathy and no meningeal signs Chest: Chest palpation & inspection: normal inspection of the chest Resp: Effort & Inspection: normal respiratory
[2022-04-17 20:38] VITALS: BP 131/95; PULSE 92; RESP 18; TEMP 36.6; O2SAT 96
[2022-04-17 20:42] LABS: Influenza A QL RT-PCR Negative (Negative); Influenza B QL RT-PCR Negative (Negative); SARS-CoV-2 RNA PCR Negative (Negative)
== END 2022-04-17 20:45 | disposition home or self-care (01) ==
PROVIDERS: Emergency Provider Emergency Medicine
DX: B34.9 Viral infection, unspecified (principal); J45.901 Unspecified asthma with (acute) exacerbation; Z20.822 Contact with and (suspected) exposure to COVID-19
CPT/HCPCS: 36415; 36600; 71045; 80053; 82805; 85025; 87502; 94640; 96372; 99284; A9270; C9803; J0696; J2930; U0003; U0005

== ENCOUNTER 2022-09-05 07:44 | Outpatient (CLI) | payer OTHER, SELFPAY ==
[2022-09-05 08:00] LABS: Basophils Absolute Auto 0.04 K/mm3 (0.00-0.10); Basophils Percent Auto 0.6 % (0.0-1.0); Hematocrit 38.2 % (35.0-49.0); Hemoglobin 12.8 g/dL (12.0-15.0); Immature Granulocyte Absolute 0.02 K/mm3 (0.00-0.00); Immature Granulocyte Percent A 0.3 % (0.0-0.0); Lymphocytes Absolute Auto 2.09 K/mm3 (1.10-4.50); Lymphocytes Percent Auto 30.9 % (18.0-42.0); Mean Corpuscular HGB Conc 33.5 g/dL (32.0-36.0); Mean Corpuscular Hemoglobin 29.4 pg (27.0-31.0); Mean Corpuscular Volume 87.6 fL (78.0-102.0); Mean Platelet Volume 10.3 fl (9.2-11.8); Monocytes Absolute Auto 0.33 K/mm3 (0.10-0.90); Monocytes Percent Auto 4.9 % (2.0-11.0); Neutrophils Absolute Auto 4.1 K/mm3 (1.7-7.2); Neutrophils Percent Auto 60.3 % (50.0-70.0); Platelet Count Result 216 K/mm3 (150-420); Red Blood Count 4.36 M/mm3 (4.20-5.40); Red Cell Distribution Width 12.2 % (11.6-14.4); White Blood Count 6.8 K/mm3 (4.8-10.8)
[2022-09-05 09:05] LABS: Cholesterol 180 mg/dL (0-200); HDL Direct 32 mg/dL (40-60); Iron 81 ug/dL (50-170); LDL Cholesterol Calculated 126 mg/dL (<130); Magnesium 1.9 mg/dL (1.8-2.4); Percent Iron Saturation 25 % (12-57); Triglycerides 112 mg/dL (0-150); Vitamin B12 555 pg/mL (193-986)
[2022-09-06 17:06] LABS: Ferritin 71 ng/mL (8-252)
== END 2022-09-05 07:45 | disposition home or self-care (01) ==
LOC: CHSLAB 07:47
PROVIDERS: PCP Internal Medicine; Visit Provider Internal Medicine
DX: K21.9 Gastro-esophageal reflux disease without esophagitis (principal); G25.81 Restless legs syndrome; Z13.6 Encounter for screening for cardiovascular disorders
CPT/HCPCS: 36415; 80061; 82607; 82728; 83540; 83550; 83735; 85025

== ENCOUNTER 2023-02-03 08:37 | Outpatient (CLI) | payer OTHER, SELFPAY ==
[2023-02-03 08:57] LABS: Basophils Absolute Auto 0.04 K/mm3 (0.00-0.10); Basophils Percent Auto 0.6 % (0.0-1.0); Eosinophils Percent Auto 2.8 % (1.0-6.0); Hematocrit 39.9 % (35.0-49.0); Hemoglobin 13.7 g/dL (12.0-15.0); Immature Granulocyte Absolute 0.02 K/mm3 (0.00-0.00); Immature Granulocyte Percent A 0.3 % (0.0-0.0); Lymphocytes Absolute Auto 2.15 K/mm3 (1.10-4.50); Lymphocytes Percent Auto 30.2 % (18.0-42.0); Mean Corpuscular HGB Conc 34.3 g/dL (32.0-36.0); Mean Corpuscular Hemoglobin 30.4 pg (27.0-31.0); Mean Corpuscular Volume 88.5 fL (78.0-102.0); Mean Platelet Volume 10.7 fl (9.2-11.8); Monocytes Absolute Auto 0.38 K/mm3 (0.10-0.90); Monocytes Percent Auto 5.3 % (2.0-11.0); Neutrophils Absolute Auto 4.3 K/mm3 (1.7-7.2); Neutrophils Percent Auto 60.8 % (50.0-70.0); Platelet Count Result 211 K/mm3 (150-420); Red Blood Count 4.51 M/mm3 (4.20-5.40); Red Cell Distribution Width 11.9 % (11.6-14.4); White Blood Count 7.1 K/mm3 (4.8-10.8)
[2023-02-03 10:15] LABS: Alanine Aminotransferase 21 U/L (14-59); Albumin Level 4.1 g/dL (3.4-5.0); Alkaline Phosphatase 100 U/L (46-116); Anion Gap 9 mmol/L (8-16); Aspartate Amino Transferase < 10 U/L (15-37); Bilirubin,Total 1.1 mg/dL (0.00-1.00); Blood Urea Nitrogen 13 mg/dL (7-18); Calcium 9.3 mg/dL (8.5-10.1); Carbon Dioxide 27 mmol/L (21-32); Chloride 106 mmol/L (98-108); Cholesterol 155 mg/dL (0-200); Estimated Glomerular Filt Rate > 60; Free T4 Free Thyroxine 0.83 ng/dL (0.76-1.46); Glucose 92 mg/dL (70-99); HDL Direct 31 mg/dL (40-60); LDL Cholesterol Calculated 109 mg/dL (<130); Osmolality Calculated 294 mOsm/kg (285-295); Potassium 3.9 mmol/L (3.5-5.1); Sodium 142 mmol/L (136-145); Thyroid Stimulating Hormone 1.82 uIU/mL (0.36-3.74); Triglycerides 77 mg/dL (0-150); Vitamin B12 503 pg/mL (193-986)
== END 2023-02-03 08:38 | disposition home or self-care (01) ==
LOC: CHSLAB 08:40
PROVIDERS: PCP Internal Medicine; Visit Provider Internal Medicine
DX: K21.9 Gastro-esophageal reflux disease without esophagitis (principal); E66.9 Obesity, unspecified; Z13.6 Encounter for screening for cardiovascular disorders
CPT/HCPCS: 36415; 80053; 80061; 82607; 83735; 84439; 84443; 85025

== ENCOUNTER 2023-06-28 10:16 | Emergency (ER) | payer OTHER, SELFPAY ==
[2023-06-28 10:17] VITALS: BP 143/101; PULSE 73; RESP 16; TEMP 36.3; O2SAT 96
--- NOTE | 2023-06-28 11:46 | ED.GENADULT ---
HPI - General Adult General Chief complaint: Wound/Laceration Stated complaint: ingrown toe nail Time Seen by Provider: 06/28/23 11:08 History of Present Illness HPI narrative: 38-year-old female presents to the emergency department for evaluation of ingrown toenail of the right great toe. Patient reports in April she was on antibiotics for this but that the her symptoms reoccurred. Patient has been attempting to get in to see Podiatry but they do not take her insurance. Related Data Home Medications Medication Instructions Recorded Confirmed sumatriptan succinate 100 mg tablet See Rx Instructions .Route 06/14/19 04/17/22 .COMPLEX PRN Headache tizanidine 4 mg tablet 4 mg PO TID 06/14/19 04/17/22 montelukast 10 mg tablet 10 mg PO DAILY 04/06/21 04/17/22 sertraline 100 mg tablet 100 mg PO DAILY 04/06/21 04/17/22 Allergies Allergy/AdvReac Type Severity Reaction Status Date / Time No Known Allergies Allergy Verified 06/28/23 10:20 Review of Systems Review of Systems: All systems reviewed & are unremarkable except as noted in HPI and below PMFSH Past Medical History Medical History Anxiety Asthma exacerbation Back pain Bronchitis Migraine Viral infection Surgical History Surgical History History of cholecystectomy Social History Social History Smoking status: Former smoker Alcohol intake: former Substance use: never Living arrangements: with family Occupation/Education: occupation Gender identity (if verbalized by the patient): Female Exam Narrative: APPEARANCE: Well appearing, no pain, no distress, well-nourished. HEAD: normocephalic, atraumatic. EYES: PERRLA/EOMI, conjunctivae clear. NOSE: Normal no drainage EARS:TMS clear with good light reflex. THROAT: Pharynx clear, no exudate. NECK: Supple. No adenopathy, no masses. RESPIRATORY: Airway patent, respirations nonlabored. Clear to auscultation bilaterally, no rales, rhonchi, wheezing. CARDIOVASCULAR: Regular rate and rhythm without murmurs rubs or gallops. ABDOMINAL: Soft, nontender, nondistended, normal bowel sounds MUSCULOSKELETAL: Moves all extremities. Strength/ROM intact, No edema, No calf tenderness. NEURO: Alert. Cranial nerves II through XII intact. Good gait. Good coordination SKIN: Ingrown toenail of right great toe with no purulence PSYCHIATRIC: Normal affect/mood. Course Course Emergency Course: 38-year-old female presenting ED for evaluation of an ingrown toenail on the right foot. Patient will be started on antibiotics and provided follow-up with Podiatry. Patient and family were comfortable with plan for discharge and close follow-up with podiatry Vital Signs Vital signs: Vital Signs Temperature 97.4 F L 06/28/23 10:17 Pulse Rate 73 06/28/23 10:17 Respiratory Rate 16 06/28/23 10:17 Blood Pressure 143/101 H 06/28/23 10:17 Pulse Oximetry 96 06/28/23 10:17 Temperature 97.4 F L 06/28/23 10:17 Pulse Rate 79 06/28/23 11:53 Respiratory Rate 20 06/28/23 11:53 Blood Pressure 143/101 H 06/28/23 10:17 Pulse Oximetry 99 06/28/23 11:53 Medical Decision Making Differential Diagnosis Differential Diagnosis: Cellulitis, infected ingrown toenail Vital Signs Vital Signs: Vital Signs Temperature 97.4 F L 06/28/23 10:17 Pulse Rate 73 06/28/23 10:17 Respiratory Rate 16 06/28/23 10:17 Blood Pressure 143/101 H 06/28/23 10:17 Pulse Oximetry 96 06/28/23 10:17 Temperature 97.4 F L 06/28/23 10:17 Pulse Rate 79 06/28/23 11:53 Respiratory Rate 20 06/28/23 11:53 Blood Pressure 143/101 H 06/28/23 10:17 Pulse Oximetry 99 06/28/23 11:53 Discharge Plan Discharge Clinical Impression: Ingrown nail of great toe Patient Disposition: Home, Self-Care Condition: Stable
[2023-06-28 11:53] VITALS: PULSE 79; RESP 20; O2SAT 99
== END 2023-06-28 12:09 | disposition home or self-care (01) ==
PROVIDERS: Emergency Provider Emergency Medicine; PCP Internal Medicine
DX: L60.0 Ingrowing nail (principal); J45.909 Unspecified asthma, uncomplicated; F41.9 Anxiety disorder, unspecified; Z87.891 Personal history of nicotine dependence; Z90.49 Acquired absence of other specified parts of digestive tract
CPT/HCPCS: 99283

== ENCOUNTER 2023-09-07 11:30 | Emergency (ER) | payer OTHER, SELFPAY ==
[2023-09-07 11:30] VITALS: BP 110/75; PULSE 80; RESP 18; TEMP 36.1; O2SAT 100
--- NOTE | 2023-09-07 11:57 | ED.WOUNDLAC ---
HPI - Wound/Laceration General Chief Complaint: Wound/Laceration Stated Complaint: infection on toes Time Seen by Provider: 09/07/23 11:37 Source: patient and family Mode of arrival: ambulatory Limitations: no limitations History of Present Illness HPI narrative: this is a 38-year-old female that recently had a procedure on her bilateral large toes by Podiatry and since then for the last couple weeks has been having redness and drainage with some paronychia infection of bilateral large toes with tender and painful currently no fluctuant currently no drainage they are red warm and tender to touch. Onset (ago): week(s) Location: other Extremity Location: Right: foot (paranychia infection bilateral large toes) Related Data Home Medications Medication Instructions Recorded Confirmed sumatriptan succinate 100 mg tablet See Rx Instructions .Route 06/14/19 09/07/23 .COMPLEX PRN Headache tizanidine 4 mg tablet 4 mg PO TID 06/14/19 09/07/23 sertraline 100 mg tablet 100 mg PO DAILY 04/06/21 09/07/23 gabapentin 300 mg capsule 300 mg PO TID 09/07/23 09/07/23 Allergies Allergy/AdvReac Type Severity Reaction Status Date / Time No Known Allergies Allergy Verified 09/07/23 11:42 Review of Systems Review of Systems: All systems reviewed & are unremarkable except as noted in HPI and below PMFSH Past Medical History Medical History Anxiety Asthma exacerbation Back pain Bronchitis Migraine Viral infection Surgical History Surgical History History of cholecystectomy Social History Social History Smoking status: Former smoker Alcohol intake: former Substance use: never Living arrangements: with family Occupation/Education: occupation Gender identity (if verbalized by the patient): Female Exam Const: General: healthy appearing Nutritional Appearance: well nourished Orientation/consciousness: patient oriented x3 Resp: Effort & Inspection: normal respiratory effort Auscultation: clear to auscultation bilaterally Cardio: Rate: regular rate Rhythm: regular rhythm GI: GI Palp: Yes Soft to palpation Neuro: General: patient oriented x3 Cranial nerves: Yes Nystagmus not present Speech: normal speech Extrem: General: normal to inspection Other: Has some redness warmth and tenderness bilateral large toes paronychia currently no drainage no fluctuance. Course Course Emergency Course: Patient evaluated and will send antibiotic by mouth and antibiotic ointment placed on her bilateral large toes. Vital Signs Vital signs: Vital Signs Temperature 36.1 C L 09/07/23 11:30 Pulse Rate 80 09/07/23 11:30 Respiratory Rate 18 09/07/23 11:30 Blood Pressure 110/75 09/07/23 11:30 Pulse Oximetry 100 09/07/23 11:30 Oxygen Delivery Room Air 09/07/23 11:30 Temperature 36.1 C L 09/07/23 11:30 Pulse Rate 80 09/07/23 11:30 Respiratory Rate 18 09/07/23 11:30 Blood Pressure 110/75 09/07/23 11:30 Pulse Oximetry 100 09/07/23 11:30 Oxygen Delivery Room Air 09/07/23 11:30 Critical Care Time Critical Care Time Critical Care Time: No Discharge Plan Discharge Clinical Impression: Paronychia Patient Disposition: Home, Self-Care Condition: Stable Instructions: Antibiotic Form, Paronychia (ED) Additional Instructions: advised take medicine as prescribed, can take Tylenol or Motrin for pain and follow with older worker specialist within 1 to 2 weeks further evaluation treatment. Prescriptions: New amoxicillin-pot clavulanate [Augmentin] 500-125 mg tablet 1 tablet PO TID Qty: 30 0RF mupirocin 2 % ointment 1 applic topical TID 7 Days Qty: 15 0RF No Action tizanidine 4 mg tablet 4 mg PO TID sumatriptan succinate 100 mg tablet See Rx Instructions .ROUTE .COMPLEX MDD 2 table
== END 2023-09-07 12:09 | disposition home or self-care (01) ==
PROVIDERS: Emergency Provider Emergency Medicine; PCP Internal Medicine
DX: L03.032 Cellulitis of left toe (principal); L03.031 Cellulitis of right toe; Z79.899 Other long term (current) drug therapy; Z87.891 Personal history of nicotine dependence
CPT/HCPCS: 99283

== ENCOUNTER 2024-08-28 10:25 | Outpatient (CLI) | payer OTHER, SELFPAY ==
[2024-08-28 11:38] LABS: SARS-CoV-2 RNA PCR Negative (Negative)
[2024-08-28 11:40] LABS: Influenza A QL RT-PCR Negative (Negative); Influenza B QL RT-PCR Negative (Negative); RSV RNA, RT-PCR Negative (Negative)
== END 2024-08-28 10:26 | disposition home or self-care (01) ==
LOC: CHSLAB 10:38
PROVIDERS: PCP Internal Medicine; Visit Provider Internal Medicine
DX: U07.1 COVID-19 (principal); R50.9 Fever, unspecified
CPT/HCPCS: 87637

== ENCOUNTER 2024-09-17 12:48 | Outpatient (CLI) | payer OTHER, SELFPAY ==
[2024-09-17 13:16] LABS: Amphetamine Screen Urine Negative (Negative); Barbiturate Screen Urine Negative (Negative); Benzodiazepines Screen Urine Negative (Negative); Cannabinoid Screen Urine Negative (Negative); Cocaine Screen Urine Negative (Negative); Methadone Screen Urine Negative (Negative); Opiate Screen Urine Positive (Negative); Phencyclidine Screen Urine Negative (Negative)
--- OUTSIDE RECORDS SUMMARY | 2024-09-17 14:30 | XMS_ITS | Clinical Summary ---
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 Name Role Phone Unavailable Primary Care Provider Unavailabl e Social History Tobacco Use Types Packs/Day Years Used Date Smoking Tobacco: Never Assessed Comments Unknown Sex and Gender Information Value Date Recorded Sex Assigned at Not on file Legal Sex Female 9:26 PM CDT Gender Identity Not on file Sexual Orientation Not on file Plan of Treatment Health Maintenance Due Date Last Done Comments Cervical Cancer Screening Pa p Smear (Age 30 to 64) Every 3 Years 1985 Annual Physical 1988 Hepatitis C 2003 DTaP, Tdap and Td Vaccines ( 1 - Tdap) 2004 Hepatitis B Vaccines (1 of 3 - 19+ 3-dose series) 2004 Cervical Cancer Screening Pa p with HPV Testing (Age 30 to 64) Every 5 Years 2015 Cervical Cancer Screening with HPV 2015 COVID-19 Vaccine (2023-2 5 season) 2024 Influenza Adult (#1) 2024 HPV Vaccines Aged Out No longer eligi ble based on patient's age to complete this topic Meningococcal B Vaccine Aged Out No l onger eligible based on patient's age to complete this topic Meningococcal Vaccine Aged Out No joe geronimo eligible based on patient's age to complete this topic Pneumococcal Vaccine: Pediat rics (0 to 5 Years) and At-Risk Patients (6 to 64 Years) Aged Out No longer eligible b ased on patient's age to complete this topic RSV Immunizations Under 20 Months Aged Out No longer eligible based on patient's age to complete this topic
--- OUTSIDE RECORDS SUMMARY | 2024-09-17 14:30 | XMS_ITS | Encounter Summary ---
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 Name Role Phone Unavailable Primary Care Provider Unavailabl e Encounter Details Date Type Department Care Team (Late st Contact Info) Description 12/29/2018 Abstract [facility] CONVERSION [address] [place] [address] , Generic Conversion, Social History Tobacco Use Types Packs/Day Years Used Date Smoking Tobacco: Never Assessed Comments Unknown Sex and Gender Information Value Date Recorded Sex Assigned at Not on file Legal Sex Female 9:26 PM CDT Gender Identity Not on file Sexual Orientation Not on file documented as of this encounter Plan of Treatment Not on file documented as of this encounter Visit Diagnoses Not on filedocumented in this encounter
--- OUTSIDE RECORDS SUMMARY | 2024-09-17 14:30 | XMS_ITS | Continuity of Care Document ---
Author Organization [place] [facility] [employer], [facility] [place] Address [address] [place] [address] Assessment No assessment recorded. Plan of Treatment Reminders Order Date Submit Date Provider Last Modified By Organization Details Last Modified Time Details Appointments Any 10 2024 09:50A Paola Li MD Not available Not available Not available Lab lipid panel, serum [address] [place] [address] (Lab), [address] [place] [address], [id number], 09/17/2024 11:26:43 CMP, serum or plasma [address] [place] [address] (Lab), [address] [place] [address], [id number], 09/17/2024 11:26:44 CBC w/ auto diff [address] [place] [address] (Lab), [address] [place] [address], [id number], 09/17/2024 11:26:44 TSH, serum or plasma [address] [place] [address] (Lab), [address] [place] [address], [id number], 09/17/2024 11:26:44 T4, free, serum [address] [place] [address] (Lab), [address] [place] [address], [id number], 09/17/2024 11:26:45 drug screen, urine 2024 [employer] [facility], [address], [place], [address], 09/17/2024 11:26:50 Referral None recorded . Procedures None recorded . Surgeries None recorded . Imaging None recorded . Medication Orders None recorded . Patient TargetsNo targets recorded. Patient Instructions Encounter Date Encounter Id Patient Instructions Last Modified By Organization Details Last Modified Time 09/17/2024 [id number] Follow-up migrai ne headaches, asthma, anxiety disorder and chronic pain syndrome. Clinically stable. Check blood work consisting of CBC, CMP, lipid, thyroid and urine drug screen. Otherwise is clinically stable. Follow-up in six Follow Up: 6 Months Approximate Date: 03/16/2025 Portions of record are template driven. When necessary additional context will be provided. Additionally some portions have been created with voice recognition software. Occasional wrong-word or [id number] substitutions may have occurred due to the inherent limitations of voice recognition software. Read the chart carefully and recognize, using context, where substitutions may have occurred. Created: Juan Li M.D. 09.17.2024 10:25 AM [email or web address] Not available 09/17/2024 11:25:57 Reason for Referral None Reported. Problems Name Problem SNOMED Code Status Onset Date Resolution Date Notes Provider Name and Address Organization Details Recorded Time Renewal of prescripti on Active 2021 Not Available [facility] 3 13:52:57 Paronychia of toe of left foot 8446902077536 9100 Active 2019 Not Available [facility] 3 13:52:57 Irritable bowel syndrome 16652777 Active Not Available [facility] 3 13:52:57 Plantar fascial fibromatos is 33136332 Active Not Available [facility] 3 13:52:57 Acute sinusitis 20111493 Active 2021 Not Available [facility] 3 13:52:57 Asthma 285519528 Active Not Available [facility] 3 13:52:57 Anxiety disorder 733571654 Active 2016 Not Available [facility] 3 13:52:57 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 679764554 Active 2021 Not Available [facility] 3 13:52:57 Lumbar sprain 990023491 Active Not Available [facility] 3 13:52:57 Gastroesop hageal reflux disease 274606561 Active Not Available [facility] 3 13:52:57 Morbid obesity 475845917 Active 2021 Not Available [facility] 3 13:52:57 Finding of body mass index 703828864 Active 2021 Not Available [facility] 3 13:52:57 Depressive disorder 92161730 Active Not Available [facility] 3 13:52:57 Multiple joint pain 50698623 Active 2017 Not Available [facility] 3 13:52:57 Chronic pain syndrome 548751256 Active 2017 Not Available [facility] 3 13:52:58 Migraine 82110872 Active Not Available [facility] 3 13:52:58 Ingrowing toenail 070286370 Active 2019 Not Available [facility] 3 13:52:58 Acute urinary tract infection 122450526 Active 2021 Not Available [facility] 3 13:52:58 Herpes zoster 1136871 Active 2022 Not Available [facility] 3 13:52:58 Stomatitis 42196165 Active 2021 Not Available [facility] 3 13:52:58 Otitis media 57005358 Active 2021 Not Available [facility] 3 13:52:58 Secondary restless legs syndrome 159977905 Active 2022 Not Available [facility] 3 13:52:58 Candidiasi s of mouth 24905067 Active 2021 Not Available [facility] 3 13:52:58 Recurrent aphthous stomatitis 049848977 Active 2022 Juan Li MD [address] [place] [address], [place], [address] , [facility] 3 11:00:29 Obese class I 0834066033497 07 Active 2022 Juan Li MD [address], [place], [address] , [place] [facility] 3 14:59:34 Cellulitis of toe of right foot 9122350448086 9106 Active 2022 Juan Li MD [address], [address], [place], [address] , [place] [facility] 3 11:58:39 Cellulitis of foot 914914310 Active 2022 Juan Li MD [address], [address], [place], [address] , [place] [facility] 3 12:48:24 Allergic rhinitis 20248111 Active 2022 Juan Li MD [address], [address], [place], [address] , [place] [facility] 3 15:11:15 Eczema 59160956 Active 2023 Juan Li MD [address], [address], [place], [address] , [facility] 4 15:39:28 Pain in right foot 3817592788063 07 Active 2023 Sanju Lan DPM [address], [address], [place], [address] , [place] [facility] 4 16:51:25 Pain in left foot 2725289416538 07 Active 2023 Sanju Lan DPM [address], [address], [place], [address] , [place] [facility] 4 16:51:42 Paronychia of toe of right foot 1188507363567 9102 Active 2023 Sanju Lan DPM [address], [address], [place], [address] , [facility] 4 16:51:54 Acute pharyngiti s 372891676 Active 2023 Juan Li MD [address], [address], [place], [address] , [facility] [employer] [facility] 4 11:49:36 Fever 945365707 Active 2024 Rachel Connor PHILLIP null, [facility] [employer] [facility] 5 11:08:28 Fatigue 52397930 Active 2024 Juan Li MD [address], [place], [address] , [facility] [employer] [facility] 5 11:25:45 Problem Notes None recorded. Medical Equipment None Reported. Allergies Allergen ID Allergen Name Allergen Category Reaction Reaction Severity Criticality Documentation Date Start Date Code Code System Note Provider Name and Address Organization Details Recorded Time 72886 Buspar medicatio n other mild Not available 09/21/2022 35180 0 RxNorm cause d heart to flutt er Not Available [facility] 3 13:54:43 Medications Name Sig Start Date Stop Date Status Note LastModified by Organization Details LastModified Time cyclobenz aprine 10 mg tablet one three times a day active Not Available Not Available No t Available amoxicill in 500 mg capsule TAKE 1 CAPSULE BY MOUTH EVERY 8 HOURS FOR 10 DAYS 09/17 completed Not Available Not Available Not Available clotrimaz ole 10 mg omid Take 1 tablet 5 times a day by oral route. active Not Available Not Available No t Available silver sulfadiaz ine 1 % topical cream APPLY A 1/16 INCH THICK LAYER TO ENTIRE BURN AREA TOPICALL Y TWICE DAILY 02/21 completed Not Available Not Available Not Available prednison e 10 mg tablet take 3 for 2 days, then take 2 for 2 days then take one for 2 days. 02/02 completed Not Available Not Available Not Available ropinirol e 1 mg tablet TAKE 1 TABLET BY MOUTH EVERY DAY AT BEDTIME active Not Available Not Available No t Available ketoconaz ole 2 % shampoo active Not Available Not Available Not Available prednisol one sodium phosphate 15 mg/5 mL (3 mg/mL) oral solution active Not Available Not Available Not Available tizanidin e 2 mg tablet TAKE 1 TABLET BY MOUTH THREE TIMES DAILY 11/17 completed Not Available Not Available Not Available citalopra m 40 mg tablet Take 1 tablet every day by oral route. active Not Available Not Available No t Available ketoconaz ole 200 mg tablet active Not Available Not Available No t Available azithromy jesus 250 mg tablet TAKE 2 TABLETS (500 MG) BY ORAL ROUTE ONCE DAILY FOR 1 DAY THEN 1 TABLET (250 MG) BY ORAL ROUTE ONCE DAILY FOR 4 DAYS 08/15 completed Not Available Not Available Not Available tizanidin e 4 mg tablet TAKE 1 TABLET BY MOUTH THREE TIMES DAILY active Not Available Not Available No t Available fluconazo le 150 mg tablet TAKE 1 TABLET BY MOUTH FOR 1 DOSE 02/21 completed Not Available Not Available Not Available benzonata te 200 mg capsule Take 1 capsule 3 times a day by oral route. active Not Available Not Available No t Available valacyclo vir 1 gram tablet Take 1 tablet 3 times a day by oral route. 09/17 completed Not Available Not Available Not Available Lotrisone 1 %-0.05 % topical cream Apply by topical route twice daily active Not Available Not Available No t Available Patanol 0.1 % eye drops INSTILL 1 DROP INTO AFFECTED EYE(S) BY OPHTHALM IC ROUTE 2 TIMES PER DAY AT AN INTERVAL OF 6 TO 8 HOURS 02/02 completed Not Available Not Available Not Available sumatript an 100 mg tablet TAKE 1 TABLET BY MOUTH AT ONSET OF HEADACHE , MAY REPEAT 1 TABLET IN 2 HOURS IF NEEDED active Not Available Not Available No t Available hydrocodo ne 5 mg-acetam inophen 325 mg tablet TAKE 1 TABLET BY MOUTH 4 TIMES DAILY active Not Available Not Available No t Available ondansetr on HCl 8 mg tablet active Not Available Not Available No t Available meloxicam 15 mg tablet TAKE 1 TABLET BY MOUTH EVERY DAY active Not Available Not Available No t Available ondansetr on HCl 4 mg tablet TAKE 1 TABLET BY MOUTH EVERY 6 HOURS NEEDED FOR NAUSEA OR VOMITING FOR UP TO 14 DAYS 09/02 completed Not Available Not Available Not Available sertralin e 100 mg tablet TAKE 1 TABLET BY MOUTH EVERY DAY active Not Available Not Available No t Available terconazo le 0.8 % vaginal cream I 1 APL VAGINALL Y HS FOR 3 DAYS active Not Available Not Available No t Available sumatript an 50 mg tablet 01/29 completed Not Available Not Available Not Available topiramat e 25 mg tablet TAKE 1 TABLET BY MOUTH TWICE DAILY active Not Available Not Available No t Available Tamiflu 75 mg capsule Take 1 capsule every day by oral route for 10 days. 03/10 completed Not Available Not Available Not Available sulfameth oxazole 800 mg-trimet hoprim 160 mg tablet TAKE 1 TABLET BY MOUTH EVERY 12 HOURS 02/21 completed Not Available Not Available Not Available hydrocodo ne 10 mg-acetam inophen 325 mg tablet active Not Available Not Available Not Available tramadol 50 mg tablet TAKE 1 TABLET BY MOUTH EVERY 6 HOURS NEEDED FOR PAIN 08/15 completed Not Available Not Available Not Available triamcino lone acetonide 0.1 % topical cream APPLY THIN LAYER TOPICALL Y TO THE AFFECTED AREA TWICE DAILY active Not Available Not Available No t Available amoxicill in 500 mg tablet TAKE 1 TABLET BY MOUTH THREE TIMES DAILY FOR 10 DAYS 04/26 completed Not Available Not Available Not Available acyclovir 800 mg tablet Take 1 tablet every 6 hours by oral route for 10 days. 05/07 completed Not Available Not Available Not Available amoxicill in 875 mg tablet TAKE 1 TABLET BY MOUTH EVERY 12 HOURS 04/26 completed Not Available Not Available Not Available citalopra m 20 mg tablet Take 1 tablet every day by oral route. 09/29 completed Not Available Not Available Not Available lorazepam 0.5 mg tablet Take 2 tablets 3 times a day by oral route. 10/29 completed being changed to .5 due to shortage on1 mg Not Available Not Available Not Available Lidoderm 5 % topical patch APPLY 1 PATCH BY TRANSDER MAL ROUTE ONCE DAILY (MAY WEAR UP TO 12HOURS. ) active Not Available Not Available No t Available amoxicill in 250 mg/5 mL oral suspensio n active Not Available Not Available Not Available baclofen 10 mg tablet Take 1 tablet 4 times a day by oral route. 09/29 completed Not Available Not Available Not Available doxycycli ne monohydra te 100 mg capsule TK 1 C PO BID WC FOR 7 DAYS active Not Available Not Available No t Available hydrocodo ne 7.5 mg-acetam inophen 325 mg tablet Take 1 tablet every 6 hours by oral route. 03/02 completed ALANNA ADRIANA [address] [place] [address] 06/04/19 85 8 HYDROCOD ONE BITARTRA TE-ACETA MINOPHE 7.5MG-32 5MG 120/30 Medicaid [employer] [place] JUAN LAN MD ADRIANA [address] [place] [address] 06/04/19 85 8 HYDROCOD ONE BITARTRA TE-ACETA MINOPHE 7.5MG-32 5MG 120/ 30 Medicaid [employer] [place] ETIENNE MDAGER ADRIANA [address] [place] [address] 06/04/19 85 8 HYDROCOD ONE BITARTRA TE-ACETA MINOPHE 7.5MG-32 5MG 120/30 Medicaid [employer] [place] ETIENNE MDAGER ADRIANA [address] [place] [address] 06/04/19 85 09/27/2017 HYDROCOD ONE BITARTRA TE-ACETA MINOPHE 7.5MG-32 5MG 120/30 Medicaid [employer] JORGECHFIJUAN ETIENNE MDAGER ADRIANA [address] [place] [address] 06/04/19 85 08/27/2017 HYDROCOD ONE BITARTRA TE-ACETA MINOPHE 7.5MG-32 5MG 120/30 Insuranc e [employer] [place] JUAN LAN MDAGER ADRIANA [address] [place] [address] 06/04/19 85 07/27/2017 LORAZEPA M 1MG 90/30 Insuranc e [employer] [place] ETIENNE MDAGER ADRIANA [address] [place] [address] 06/04/19 85 07/26/2017 HYDROCOD ONE BITARTRA TE-ACETA MINOPHE 7.5MG-32 5MG 120/30 Insuranc e [employer] [place]AN ETIENNE MDAGER ADRIANA [address] [place] [address] 06/04/19 85 7 HYDROCOD ONE BITARTRA TE-ACETA MINOPHE 7.5MG-32 5MG 120/30 Insuranc e [employer] [place] LD LI, JUAN VICTORINA MD ALANNA ADRIANA [address] [place] [address] 06/04/19 85 7 LORAZEPA M 1MG / Insuranc e [employer]/ [employer] [place]UAN ETIENNE MD ADRIANA [address] [place] [address] 06/04/19 85 7 HYDROCOD ONE BITARTRA TE-ACETA MINOPHE 7.5MG-32 5MG 35284/03 0 Medicaid [employer]/ JUAN DEY Not Available Not Available Not Available cephalexi n 500 mg capsule TAKE 1 CAPSULE BY MOUTH EVERY 6 HOURS 02/21 completed Not Available Not Available Not Available hyoscyami ne sulfate 0.125 mg tablet TAKE 1 TABLET BY MOUTH EVERY 4 HOURS NEEDED 09/02 completed Not Available Not Available Not Available buspirone 10 mg tablet Take 1 tablet twice a day by oral route. 08/24 completed Not Available Not Available Not Available Advair Diskus 250 mcg-50 mcg/dose powder for inhalatio n Inhale 1 puff twice a day by inhalati on route. 02/06 completed Not Available Not Available Not Available docusate sodium 100 mg capsule TAKE ONE CAPSULE BY MOUTH TWICE DAILY FOR 14 DAYS active Not Available Not Available No t Available gabapenti n 300 mg capsule TAKE 1 CAPSULE BY MOUTH THREE TIMES DAILY active Not Available Not Available No t Available lidocaine HCl 2 % mucosal solution TAKE 15 ML BY MOUTH EVERY 3 HOURS 09/17 completed Not Available Not Available Not Available omeprazol e 20 mg capsule,d elayed release Take 1 capsule every day by oral route. active Not Available Not Available No t Available cephalexi n 500 mg tablet Take 1 tablet every 6 hours by oral route. 02/21 completed Not Available Not Available Not Available monteluka st 10 mg tablet TAKE 1 TABLET BY MOUTH EVERY DAY active Not Available Not Available No t Available hydroxyzi ne HCl 25 mg tablet TAKE 1 TABLET (25 MG) BY ORAL ROUTE 3 TIMES PER DAY NEEDED for DX: F40.19 2020 active Not Available Not Available Not Avai lable mupirocin 2 % topical ointment APPLY TOPICALL Y THREE TIMES DAILY FOR 7 DAYS active Not Available Not Available No t Available gabapenti n 100 mg capsule Take 1 capsule 3 times a day by oral route. 02/05 completed Not Available Not Available Not Available ergocalci ferol (vitamin D2) 1,250 mcg (50,000 unit) capsule active Not Available Not Available Not Available lorazepam 1 mg tablet TAKE 1 TABLET BY MOUTH FOUR TIMES DAILY FOR ANXIETY DX: F41.9 09/21 completed Not Available Not Available Not Available Pepcid 20 mg tablet Take 1 tablet twice a day by oral route. 08/24 completed Not Available Not Available Not Available methylpre dnisolone 4 mg tablets in a dose pack FOLLOW PACKAGE DIRECTIO NS 09/17 completed Not Available Not Available Not Available albuterol sulfate HFA 90 mcg/actua tion aerosol inhaler INHALE 2 PUFFS BY MOUTH FOUR TIMES DAILY active Not Available Not Available No t Available hydroxyzi ne HCl 10 mg tablet Take by oral route four times daily PRN for itching 09/29 completed Not Available Not Available Not Available cefdinir 300 mg capsule Take 1 capsule every 12 hours by oral route. active Not Available Not Available No t Available fluticaso ne propionat e 50 mcg/actua tion nasal spray,hugh pension SHAKE LIQUID AND USE 2 SPRAYS IN EACH NOSTRIL DAILY 2024 active Not Available Not Available Not Avai lable sertralin e 50 mg tablet active Not Available Not Available Not Available dicyclomi ne 10 mg capsule Take 1 capsule 3 times a day by oral route. 02/03 completed Not Available Not Available Not Available amoxicill in 875 mg-potass ium clavulana te 125 mg tablet TAKE 1 TABLET BY MOUTH EVERY 12 HOURS 09/17 completed Not Available Not Available Not Available oxycodone 5 mg tablet TAKE 1 TABLET BY MOUTH EVERY 4 HOURS NEEDED FOR PAIN FOR UP TO 14 DAYS 06/14 completed Not Available Not Available Not Available neomycin- polymyxin -hydrocor t 3.5 mg-10,000 unit/mL-1 % ear drops,hugh p INSTILL 4 DROPS INTO AFFECTED EAR(S) BY OTIC ROUTE 3 TIMES PER DAY 02/02 completed Not Available Not Available Not Available Mucinex 600 mg tablet, extended release Take 1 tablet every 12 hours by oral route. active Not Available Not Available No t Available escitalop beverly 20 mg tablet TAKE 1 TABLET BY MOUTH ONCE DAILY 08/24 completed Not Available Not Available Not Available tizanidin e 4 mg capsule Take by oral route for 30 days. 03/04 completed Not Available Not Available Not Available Zanaflex 2 mg capsule Take 1 capsule 3 times a day by oral route. active Not Available Not Available No t Available multivita min 09/29 completed Not Available Not Available Not Available Symbicort 80 mcg-4.5 mcg/actua tion HFA aerosol inhaler INHALE 2 PUFFS BY MOUTH TWICE DAILY active Not Available Not Available No t Available omeprazol e 20 mg tablet,de layed release Take 1 tablet every day by oral route. 05/12 completed Not Available Not Available Not Available Plus (calcium carbonate ) 27 mg iron-1 mg tablet active Not Available Not Available Not Available naloxone 4 mg/actuat ion nasal spray 01/31 completed Not Available Not Available Not Available Fluzone Quad (PF) 60 mcg (15 mcg x 4)/0.5 mL IM syringe PHARMACI ST ADMINIST ERED IMMUNIZA TION ADMINIST ERED AT TIME OF DISPENSI NG active Not Available Not Available No t Available Vitals Date Recorded Body height Body mass index (BMI) Body weight Heart rate Body temperature Oxygen saturation Oxygen saturation in Arterial blood by Pulse oximetry Systolic blood pressure Diastolic blood pressure Provider Name and Address Organization Details Last Updated DateTime 5 166.37 cm 28.7 kg/m2 25481.6 6 g 63 /min 97 [degF] 97 % 97 % 118 mm[Hg] 60 mm[Hg] Ernestine Medrano [employer] 5 11:04:11 Social History Question Answer Notes LastModified by Organizat ion Details LastModified Time Tobacco Smoking Status Never Smoker KARTIK Young, [employer] 08/22/2023 14:12:25 What Is Your Level Of Alcohol Consumption? None [email or web address] Information not available 08/22/2023 If You Are , What Was Your Level Of Alcohol Consumption Prior To ? None [email or web address] Information not available 08/22/2023 What Is Your Level Of Caffeine Consumption? Occasional [email or web address] Information not available 08/22/2023 In The 14 Days Before Symptom Onset, Have You Had Close Contact With A Laboratory-confirm ed COVID-19 While That Case Was Ill? No [id number] Information not available 09/21/2022 In The 14 Days Before Symptom Onset, Have You Had Close Contact With A Person Who Is Under Investigation For COVID-19 While That Person Was Ill? No [id number] Information not available 09/21/2022 What Was The Date Of Your Most Recent Tobacco Screening? 08/22/2023 [email or web address] Information not available 08/22/2023 Do You Use Any Illicit Or Recreational Drugs? No [email or web address] Information not available 08/22/2023 Have You Recently Traveled Abroad? No [id number] Information not available 09/21/2022 Sex: Unknown Functional Status None recorded. Mental Status None recorded. Family History Nothing Reported Notes:Mother living [address] [facility] tia hypertension and sleep apnea s/p bariatric surgery Father living 54 essential hypertension and Glioblastoma multiforme One brother living and in good health Medical History Condition Response NERVE DISEASE N BLINDNESS N RHEUMATIC FEVER N KIDNEY STONES N BLADDER PROBLEMS N MRSA N OTHER # 1 N POLIO N LUNG DISEASE/DISORDER N RADIATION / CHEMOTHERAPY N COPD N Other # 2 N BLOOD DISEASES N EAR OR HEARING PROBLEMS N MUMPS N DEPRESSION (INCLUDING POST ) N BOWEL PROBLEMS N STROKE/TIA N ULCERS N BENIGN PROSTATIC HYPERPLASIA N MEASLES N MYOCARDIAL INFARCTION N OBESITY N GERD/NAUSEA N ANEURYSM N URINARY/BLADDER/KIDNEY PROBLEMS N CORONARY ARTERY DISEASE (CAD) N ADDICTION CONCERNS N Impotence N ENDOMETRIOSIS N USE OF BLOOD THINNERS N SKIN PROBLEMS N GASTROINTESTINAL DISORDER N PERIPHERAL VASCULAR DISEASE N MUSCLE,JOINT OR BONE PROBLEMS N GASTROINTESTINAL BLEEDING N BLOOD CLOTS N ASTHMA Y CATARACTS N ERECTILE DYSFUNCTION N VARICOSITIES N GI PROBLEMS N Low Testosterone N INFERTILITY N AIDS/HIV N CHEMOTHERAPY / RADIATION N LIVER DISEASE N MALE HYPOGONADISM N HYPERTENSION N Deficiency N TOURETTE'S N ANXIETY DISORDER Y BLOOD TRANSFUSION N ANEMIA/BLOOD DISORDER N CHRONIC EAR INFECTIONS N BRONCHITIS N TUBERCULOSIS N GLAUCOMA N FOOT PROBLEM N DIVERTICULITIS N SLEEP APNEA N CHICKENPOX N INFECTIOUS DISEASE N PROSTATE N HEART ARRHYTHMIA N INSOMNIA N HIGH CHOLESTEROL / HYPERLIPIDEMIA N HYPERTHYROIDISM N EYE PROBLEMS N EDEMA N CHRONIC PAIN SYNDROME N HYPOTHYROIDISM N CONSTIPATION N CAROTID BLOCKAGE N BACK / NECK PROBLEMS Y HAVE YOU BEEN HOSPITALIZED OR SEEN IN [facility] ER IN THE PAST YEAR ? N ATHEROSCLEROSIS N BREAST PROBLEMS N DIALYSIS N ECZEMA N OSTEOPOROSIS N ARTHRITIS N NO SIGNIFICANT PAST MEDICAL HISTORY N APPENDICITIS N DIABETES, TYPE N BAD TEETH N ENT N HEARTBURN / REFLUX N AUTISM SPECTRUM DISORDER (ASD) N HEPATITIS / LIVER DISEASE N GOUT N SLEEP DISORDER N ALZHEIMER'S DISEASE N Brain Problems N HERPES N DEMENTIA N SEIZURES/EPILEPSY N HEADACHES/MIGRAINES Y VASCULAR DISEASE N PACEMAKER N Blood Disorder N DIZZINESS N KIDNEY DISEASE N HEART DISEASE/HEART PROBLEMS N MULTIPLE SCLEROSIS N CARDIAC ARRHYTHMIA N CANCER: SPECIFY N Gall Stones N ATRIAL FIBRILLATION N PULMONARY EMBOLISM N AUTOIMMUNE DISEASE N Gynecological HistoryNo gynecological history recorded. Obstetrics History GPAL:G 0 P 0 0 0 0 Immunizations Vaccine Type Date Status Note Provider [facility] e and Address Organization Details Recorded Time influenza, unspecified formulation 3 completed Rachel Ryan CMA null, [facility] Receptor 08/21/2023 09:51:56 influenza, unspecified formulation 4 completed KARTIK Bautista, [facility] Receptor 05/29/2024 14:33:00 COVID-19 Non-[place] Vaccine, Product Unknown 1 completed Not Available [facility] 09/21/2022 13:54:40 Influenza, adjuvanted, trivalent, PF 2 completed Not Available [facility] 09/21/2022 13:54:40 Influenza, split virus, quadrivalent, preservative 9 completed Not Available [facility] 09/21/2022 13:54:41 Influenza, split virus, quadrivalent, PF 8 completed Not Available [facility] 09/21/2022 13:54:41 Influenza, split virus, quadrivalent, preservative 7 completed Not Available [facility] 09/21/2022 13:54:41 Influenza, split virus, quadrivalent, PF 1 completed Not Available [facility] 09/21/2022 13:54:41 Influenza, split virus, quadrivalent, PF 6 completed Not Available [facility] 09/21/2022 13:54:41 Influenza, split virus, quadrivalent, preservative 5 completed Not Available [facility] 09/21/2022 13:54:41 Influenza, split virus, trivalent, preservative 4 completed Not Available [facility] 09/21/2022 13:54:41 Past Encounters Encounter ID Performer Location Encounter Start Date Encounter Closed Date Diagnosis/Indication Diagnosis SNOMED-CT Code Diagnosis ICD10 Code Diagnosis Note [id number] Juan Li MD [facility] [address] [place] [address] 09/17/2024 10:40:51 09/17/2024 11:43:34 Chronic pain syndrome 622517470 G89.4 Anxiety disorder 2753907 06 F41.9 Migraine 74938706 G43.90 9 Asthma 380260447 J45.90 9 Long-term current use of opiate analgesic drug [id number] 57087 Z79.891 Screening for cardiovascular system disease 206598440 Z13.6 Fatigue 93388770 R53.83 Health Concerns Section Related Observation LastModified by Organization Detai ls LastModified Time None Recorded Concern Status LastModified by Organization Details LastModified Time None Recorded Payers Encounter Date Sequence Insurance Name Policy Number Policy Larkin Covered Member ID Larkin Member ID Guarantor Name 09/17/2024 1 [facility] (MEDICAID HMO) [id number] Adriana Mondragon [id number] Adriana Mondragon Notes Date Note Type Note Provider Name and Address Organization Details Recorded Time text/html Patient Name: Adriana Guevara AlannaDate Of Service: Monday ( 09.17.2024 ): 1985 Age: 39 There has been approximately a 12 lb weight loss since 02/22/2024. This represents approximately a 6.4% change in weight. Weight change attributable to lifestyle changes. Vital Signs:Blood Pressure: Sitting Rt. Arm 118/60Pulse: Sitting 63 /min and RegularRespiratory Rate: 16Height 65.5 in or 1.7 mWeight 175 lb or 79.4 kgBMI 28.7Temperature: 97 F or 36.1 CPulse Oximetry: 97 % at rest on no oxygen Chief Complaint: Addressed in HPI Problems or conditions discussed in the HPI were the only ones reviewed during the encounter.Only social and family history addressed in the HPI were reviewed during this encounter. Attendant(s): HusbandConstitutional and Systemic Symptoms:none Medication Reconciliation: from medication list. History of Present Illness #1. Hx of migraines currently stable: No change in duration, frequency or intensity of headaches. Occurs at a frequency of approximately monthly. Location: generalized area. Associated Symptoms: photophobia Hx of CVS no hx. Currently taking Imitrex and Hydrocodone. The headaches are adequately controlled. MIDAS Level: 6-10 Mild Disability #2. Hx of asthma. Daily medications: none. Uses bronchodilators very infrequently. Night time exacerbations: less than 2 times monthly There has been no cough, congestion, or sputum production. No changes in exercise tolerance. Denies any fever or chills. Tolerating the medications without problems. The current status could be classified as Intermittent asthma. Using nebulizer Treatments: No. #3. Anxiety Disorder: History of anxiety disorder. There has been no panic attacks. No interval complaints of any vegetative or other signs of depression. Taking Zoloft. Discussed possibility of decreasing and weaning off medication. Feels that current regimen is working fine and wishes not to change the current treatment regimen. Medication not causing any sedation or cognitive dysfunction and there is no contraindication to continue current therapy. #4. Chronic pain management for chronic lumbar, knees and hips Since last examination no significant change since last examination Interval Testing: partial relief requiring additional medicationHas tried NSAIDS constant, exacerbated by activity and interferes with enjoyment and ability to perform activities of daily living. Pain Description: No. Currently seeing or has seen in the past a Tax Technician: 4 .Pain - Enjoyment of Life - General Activity ScalePain on Average: 4Enjoyment of Live: 5General Activity: 4Enjoyment of Life - General Activity Scale: Mobic, Neurontin and ZanaflexCurrently regimen consists of 20 as prescribed with no evidence of abuse or self prescribing. Current Average Morphine Milligram Approximate Equivalent: NA mg approximated if taking full dosage daily. Recommend: no.Benzodiazepines or other hypnotics: kept medications the same.Alternative pain management modalities (acupuncture - behavior therapy- additional PT - SNRIs) have been discussed and have either been tried in the past or not acceptable alternatives to patient or not available in our location.Will will be performed and patient instructed that failure of testing within a 24 hour period from time of order may result in termination of medication.Urine Testing: yes and no discrepancies or multiple prescribers noted.Controlled substance database yes and no discrepancies or multiple prescribers noted. Pill counts when available have been acceptable. No other signs of any abuse.Patient reports condition is stable and is able to function with the medication. Denies any misuse or adverse effects.TREATMENT OBJECTIVE: Enhance ability to manage pain independently, improved function and sustain quality of life. Recommendations or alternative therapies and lifestyle changes are discussed on each visit. Has shown improvement inf functionality. Has been educated on the side effects,risks and any black box warnings. Has verbalized the dangers of some of the medications regarding driving and cooperating heavy machinery and have advised against this. Active Medication ListMobic 15MG Take One Tablet DailyZanaflex 4 MG (CAPSULE - ORAL) One Four Times DailyImitrex 100 MG (TABLET - ORAL) As DirectedProair Hfa 2 Puffs Four Times A DayFluticasone Propionate 250; 50 UG; UG POWDER One Puff BidZoloft 100 MG (TABLET - ORAL) One DailyNorco 325 MG-5 MG (TABLET - ORAL) One Four Times DailyPrilosec Otc 20 MG (TABLET, DELAYED RELEASE - ORAL) One DailyRopinirole 1 MG TABLET One HsNeurontin 300 MG (CAPSULE - ORAL) One Tid Adverse Drug Reactions ReviewedBuspar Heart Flutter Vaccination and Immunization( ) 2023- INFLUENZA(X) 2021-02 COVID [facility] [id number] Gastric Rncci1116-94 Lap Cholecystectomy Preventative Testing( ) 08/01/2023 Albumin 4.3 G/DL Social HistoryDoes not smoke or drinkWorks at [employer] Family HistoryMother living 62 essential hypertension and sleep apnea s/p bariatric surgery and hx of atrial fibrillationFather 54 essential hypertension and Glioblastoma multiformeOne brother living and in good healthMenarche 12 Menopause A0 Active Medication ListMobic 15MG Take One Tablet DailyZanaflex 4 MG (CAPSULE - ORAL) One Four Times DailyImitrex 100 MG (TABLET - ORAL) As DirectedProair Hfa 2 Puffs Four Times A DayFluticasone Propionate 250; 50 UG; UG POWDER One Puff BidZoloft 100 MG (TABLET - ORAL) One DailyNorco 325 MG-5 MG (TABLET - ORAL) One Four Times DailyPrilosec Otc 20 MG (TABLET, DELAYED RELEASE - ORAL) One DailyRopinirole 1 MG TABLET One HsNeurontin 300 MG (CAPSULE - ORAL) One Tid Adverse Drug Reactions ReviewedBuspar Heart Flutter Vaccination and Immunization( ) 2023- INFLUENZA(X) 2021-02 COVID [facility] Uqzcbfv2725-07 Gastric Rzvim4963-93 Lap Cholecystectomy Preventative Testing( ) 08/01/2023 Albumin 4.3 G/DL Social HistoryDoes not smoke or drinkWorks at [employer] Family HistoryMother living 62 essential hypertension and sleep apnea s/p bariatric surgery and hx of atrial fibrillationFather 54 essential hypertension and Glioblastoma multiformeOne brother living and in good healthMenarche 12 Menopause A0 Juan Li MD [address] [facility] [facility] [address], [place], [address], [place] - S Receptor 09/17/2024 11:26:23 OBGyn Episode No OBEpisode recorded.
--- OUTSIDE RECORDS SUMMARY | 2024-09-17 14:30 | XMS_ITS | Clinical Summary ---
Author Organization [facility] Medical Office Building [address] Address [address] [place] [address] Care Team Providers Care Lab Director Name Role Phone Kal Li MD Primary Care Provider Allergies Active Allergy Reactions Criticality Noted Date Comments Buspirone Palpitations Low 10/26/2021 Medications gabapentin (NEURONTIN) 300 mg capsule Take 1 capsule (300 mg total) by mouth 3 (three) times a day 2 Active montelukast (SINGULAIR) 10 mg tablet Take 1 tablet (10 mg total) by mouth daily 1 Active sertraline (ZOLOFT) 100 mg tablet Take 100 mg by mouth daily 2 Active tiZANidine (ZANAFLEX) 4 mg tablet Take 1 tablet (4 mg total) by mouth 3 (three) times a day 2 Active albuterol HFA (PROVENTIL HFA,VENTOLIN HFA,PROAIR HFA) 90 mcg/actuation inhaler Inhale 1,000 puffs 2 (two) times a day as needed 8 Active omeprazole (PriLOSEC) 20 mg capsule Take 1 capsule (20 mg total) by mouth daily as needed Active famotidine (PEPCID) 20 mg tablet Take 1 tablet (20 mg total) by mouth as needed Active etonogestreL (Nexplanon) 68 mg implant Nexplanon 68 mg subdermal implant Inject 1 implant by subcutaneous route. Active diphenhydrAMINE (BENADRYL) 50 mg capsule Take 1 capsule (50 mg total) by mouth nightly Active multivitamin capsule Take 1 capsule by mouth daily Active budesonide-formo teroL (SYMBICORT) 160-4.5 mcg/actuation inhaler Inhale 2 puffs 2 (two) times a day Rinse mouth with water after use. Do not swallow. Active nutritional supplements liquid Take by mouth Vitamin supplement drink Active docusate sodium (Colace) 100 mg capsuleIndicatio ns:constipation Take 1 capsule (100 mg total) by mouth 2 (two) times a day for 14 days 28 capsule 2 2 Active Additional Information Patient not taking.Reported on 09/13/2022 hyoscyamine (OSCIMIN) 0.125 mgIndications:Ur inary Incontinence Take 1 tablet (125 mcg total) by mouth every 4 (four) hours as needed (hiccups. stomach spasm) 180 tablet 2 Active SUMAtriptan (IMITREX) 100 mg tablet Take 1 tablet (100 mg total) by mouth once as needed for migraine for up to 20 doses 20 tablet 2 Active HYDROcodone-acet aminophen (NORCO) 5-325 mg per tabletIndication s:Pain Take 1 tablet by mouth every 6 (six) hours as needed From PCP Active meloxicam (MOBIC) 15 mg tablet Take 1 tablet (15 mg total) by mouth daily 2 Active lidocaine 2 % solution TAKE 15MLS BY MOUTH EVERY 3 HOURS 2 Active amoxicillin 500 mg capsule TAKE 1 CAPSULE BY MOUTH EVERY 8 HOURS 2 Active rOPINIRole (REQUIP) 1 mg tablet Take 1 tablet (1 mg total) by mouth nightly at bedtime 3 Active Active Problems Problem Noted Date Diagnosed Date 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 We have discussed compression garments as well as some weight resistance to help with some of the redundant skin to see if this could help tighten things. We have also brought up referral to plastic surgeries. Continue with multivitamin, calcium and vitamin-D. The patient will call us back with any further questions or concerns. We will see her back in 1 year Assessment & Plan (03/14/2023 8:51 AM CDT): Patient will continue with her yearly physicals with her primary care with routine blood work. We will encourage her to work with the dietitian and attend the monthly support groups. Continue calcium, multivitamin and vitamin-D. We will see her back at 1 year. She will call sooner if anything would change. Assessment & Plan (09/13/2022 8:49 AM SPARKER AND PATCHER): Continue small frequent meals. Continue to exercise as tolerates. We will encourage her to continue to attend the monthly support group meetings. We will see her back in 6 months. Patient will call sooner if anything changes. Class 1 obesity without seri ous comorbidity with body mass index (BMI) of 30.0 to 30.9 in adult 09/23/2021 Assessment & Plan (03/08/2022 9:29 AM CDT): The patient has done well throughout her 6 months showing consistent weight loss. She has worked well with the dietitian. She has attended the monthly support groups which we will recommend that she continues after the visit. We discussed that she does not get for 18 months after surgery. The 2 week preoperative dietary handout has been given to the patient and discussed. We will now submit everything to insurance. Once approval has been obtained we will set her up for surgery. Postoperative restrictions and time off work as well as hospital length of stay have been discussed as well. All questions answered. Assessment & Plan (01/25/2022 11:24 AM CDT): The patient continues to show nice consistent losses throughout this process. She will continue to attend the monthly support groups. Continue small frequent meals. She is set up for her EGD in the upcoming month. Next month will be her last visit and then we will obtain everything for precertification. Assessment & Plan (12/28/2021 9:29 AM CDT): The patient will continue small frequent meals. Continue exercise regimen as tolerates. In the upcoming month we will set her up for an EGD. We have preliminarily counseled the patient to avoid for 18 months following surgery. Continue to recommend attending the monthly support group. Continue exercise regimen of 30 minutes of cardiovascular exercise each Week. We will see her back next month to reassess. Assessment & Plan (11/23/2021 10:33 AM CDT): Continue small frequent meals. Continue exercise regimen. Keep follow-up appointment with the dietitian. Follow back up in 4 weeks to reassess. Assessment & Plan (10/26/2021 11:14 AM CDT): Continue small frequent meals. Continue exercise as tolerates. Continue follow- up with the dietitian, psych in physical therapy. We will see her back next month to reassess Assessment & Plan (09/23/2021 9:55 AM SPARKER AND PATCHER): Given their past success the patient would be a good candidate for weight loss surgery. We have gone over options such as the bypass and sleeve gastrectomy. We have also discussed risks and benefits such as blood clots, staple line leak as well as new or worsening reflux symptoms. They are in understanding. During this time will have them seen by the dietitian and psych. As we get closer to the time of surgery we will set him up for an EGD to look for hiatal hernia, H pylori or other gastric pathology. We will see them back in 4 weeks. They are in understanding of the plan. We have gone over small frequent meals shooting for a goal calorie intake of around 1600 spread throughout 4-5 meals. We have discussed not eating late at night. We have discussed cardiovascular exercise. Greater than 15 minutes was spent in counseling the patient on diet and exercise with regards to her morbid obesity. Resolved Problems Problem Noted Date Diagnosed Date Resolved Date Morbid obesity with BMI of 40.0-44.9, adult 03/22/2022 03/14/2023 Assessment & Plan (06/14/2022 9:00 AM SPARKER AND PATCHER): Continue small frequent meals. Okay to return to activities unrestricted at this time. We will encourage her to attend the monthly support group meetings and work with the dietitian. We will see her back in 3 months. Assessment & Plan (05/12/2022 11:22 AM CDT): Continue small frequent meals. Continue diet as laid out in post bariatric handout. Continue calcium, multivitamin and vitamin-D. Bowel regimen to avoid straining. No submerging incisions for another week. No heavy lifting for another 3 weeks. We will see them back at 1 month reassess their progress. They will call sooner if anything changes. Assessment & Plan (04/12/2022 9:34 AM CDT): Continue small frequent meals. Continue exercise as tolerates. Preoperative clear liquid diet has been discussed and handout given. We will family and marriage counsellor the patient to avoid for at least 18 months after surgery. Continue to attend the monthly support group sessions. All questions leading up to surgery have been answered. Surgical History Surgery Date Site/Laterality Comments CHOLECYSTECTOMY 07/24/2012 - 07/23/2013 ESOPHAGOGASTRODUODENOSCOPY SLEEVE GASTROPLASTY 05/04/2022 Medical History Medical History Date Comments Asthma Back injury 2006 Sleep apnea IBS (irritable bowel syndrome) Arthritis Delayed emergence from general anesthesia Urinary tract infection Headache Anxiety 4 vaginal births Family History Medical History Relation Name Comments Diabetes Brother Brain cancer Father Breast cancer Maternal Grandmother Diabetes Mother Rheum arthritis Mother Diabetes Mother's Sister Ovarian cancer Paternal Grandmother Relation Name Status Comments Brother Father Maternal Grandmother Mother Mother's Sister Paternal Grandmother Social History Tobacco Use Types Packs/Day Years Used Date Smoking Tobacco: Never Passive Smoke Exposure: Never Smokeless Tobacco: Never Tobacco Cessation:Counseling Given: Not Answered AUDIT-C Answer Date Recorded Q1: How often do you have a drink containing alc ohol? Monthly or less 05/04/2022 Q2: How many drinks containi ng alcohol do you have on a typical day when you are drinking? 1 or 2 05/04/2022 Q3: How often do you have si x or more drinks on one occasion? Never 05/04/2022 PHQ-2 Answer Date Recorded PHQ-2 Total Score (If total score is 3 or more points, staff should administer the PHQ-9) 0 05/04/2022 Comments No Sex and Gender Information Value Date Recorded Sex Assigned at Not on file Legal Sex Female 7:38 PM SPARKER AND PATCHER Gender Identity Female 09/12/2022 7:43 PM SPARKER AND PATCHER Sexual Orientation Straight 09/12/2022 7: 43 PM SPARKER AND PATCHER Obstetrics History Last Filed Vital Signs Vital Sign Reading Time Taken Comments Blood Pressure 99/68 03/14/2024 8:24 AM CDT Pulse 69 03/14/2024 8:24 AM CDT Temperature 36.4 C (97.5 F) 03/14/2024 8:24 AM CDT Respiratory Rate 18 05/06/2022 11:3 1 AM CDT Oxygen Saturation 98% 03/14/2024 8:24 AM CDT Inhaled Oxygen Concentration - - Weight 83.9 kg (184 lb 14.4 oz) 03/14/2024 8:24 AM CDT Height 167.6 cm (5' 6 ) 03/14/2024 8:24 AM CDT Body Mass Index 29.84 03/14/2024 8:24 AM CDT Plan of Treatment Health Maintenance Due Date Last Done Comments Cervical Cancer Screening 1985 Hepatitis C Screening 1985 DTaP/Tdap/Td Vaccine (1 - Tdap) 1996 Varicella Vaccines (1 of 2 - 13+ 2-dose series) 1998 Hepatitis B Screening 2003 Regular Well Visit/Exam 18-64 2003 Pneumococcal vaccine <65 (1 of 2 - PCV) 2004 Depression Screening 03/22/2023 03/22/2022 Covid-19 Vaccine (2 - season) 2024 02/24/2021 Influenza Vaccine (#1) 2024 3, 05/18/2022, 05/28/2021, Additional history exists HPV Vaccines Aged Out No longer eligi ble based on patient's age to complete this topic Insurance [facility] Advance Directives For more information, please contact: [phone] * Full Code (Latest Code Status on File) Date Activated Date Inactivated Comments 05/04/2022 3:34 PM 05/06/2022 7:18 PM * Full Code Date Activated Date Inactivated Comments 02/08/2022 12:38 PM 02/08/2022 6:44 PM * Full Code Date Activated Date Inactivated Comments 02/08/2022 12:38 PM 02/08/2022 12:38 PM Care Teams Lab Director Relationship Specialty Start Date End Date Kal Li MD [address] [place] [address] PCP - General Internal Medicine 08/27/21
--- OUTSIDE RECORDS SUMMARY | 2024-09-17 14:30 | XMS_ITS | Referral Summary ---
Author Organization [facility] Medical Office Building [address] Address [address] [place] [address] Care Team Providers Care Address Change Clerk Name Role Phone Kal Li MD Primary [...] change. Assessment & Plan (09/13/2022 8:49 AM GLASS BLOWING INSTRUCTOR): Continue small frequent meals. Continue to exercise [...] reassess Assessment & Plan (09/23/2021 9:55 AM GLASS BLOWING INSTRUCTOR): Given their past success the patient would [...] 03/14/2023 Assessment & Plan (06/14/2022 9:00 AM GLASS BLOWING INSTRUCTOR): Continue small frequent meals. Okay to return [...] been discussed and handout given. We will crisis counselor the patient to avoid for at least 18 months after surgery. Continue to attend the monthly support group sessions. All questions leading up to surgery have been answered. Social History Tobacco Use Types Packs/Day Years [...] on file Legal Sex Female 7:38 PM GLASS BLOWING INSTRUCTOR Gender Identity Female 09/12/2022 7:43 PM GLASS BLOWING INSTRUCTOR Sexual Orientation Straight 09/12/2022 7: 43 PM GLASS BLOWING INSTRUCTOR Last Filed Vital Signs Vital Sign Reading [...] 03/14/2024 8:24 AM CDT Plan of Treatment Not on file Insurance [facility] Advance Directives For more information, please contact: [phone] * Full Code (Latest Code Status on File) Date Activated Date Inactivated Comments 05/04/2022 3:34 PM 05/06/2022 7:18 PM * Full Code Date Activated Date Inactivated Comments 02/08/2022 12:38 PM 02/08/2022 6:44 PM * Full Code Date Activated Date Inactivated Comments 02/08/2022 12:38 PM 02/08/2022 12:38 PM Care Teams Address Change Clerk Relationship Specialty Start Date End Date Kal Li MD [address] [place] [address] PCP - General Internal Medicine 08/27/21
--- OUTSIDE RECORDS SUMMARY | 2024-09-17 14:31 | XMS_ITS | Data Portability ---
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 Plan of Treatment Reminders Order Date Submit Date Provider Last Modified By Organization Details Last Modified Time Details Appointments None recorded. Lab test, urine 2016 0[address] [place] [address] In-Office Order, Internal Use Only DO Not Attach Compendium DO Not Attach Compendium, Do Not Delete/merge, [id number] 14:41:38 Referral None recorded. Procedures None recorded. Surgeries None recorded. Imaging None recorded. Medication Orders Nexplanon 68 mg subdermal implant [address] [facility] [place], [address], 7 14:41:38 Patient TargetsNo targets recorded. Patient InstructionsNo instructions recorded. Reason for Referral None Reported. Results Created Date Observation Date Name Description Value Unit Range Abnormal Flag Note LastModifiedBy Organization Detail LastModifiedTime 12/14/19 17 12/13/2016 pregn nuno test, urine HCG negati ve Not Available In-Office Order Internal Use Only DO Not Attach Compendium DO Not Attach Compendium, Do Not Delete/merge, [id number] 12/13/2016 14:14:20 Result Notes None recorded. Problems Name Problem SNOMED Code Status Onset Date Resolution Date Notes Provider Name and Address Organization Details Recorded Time Lower back injury [id number] Active 017 Venus Lowery [facility] 12/12/2016 16:17:06 Problem Notes None recorded. Procedures Surgical History Date Name Laterality Status Provider Name and Address Organization Details Recorded Time 12/14/19 17 Control Implant Replacement completed Brittny Rosa [facility] 12/13/2016 14:38:14 Cholecystectomy completed Venus Lowery [facility] 12/12/2016 16:25:54 Imaging Results None recorded. Procedure Notes None recorded. Medical Equipment None Reported. Allergies No known drug allergies Medications Name Sig Start Date Stop Date Status Note LastModified by Organization Details LastModified Time [place] 7.5 mg-325 mg tablet Take by oral route. active Not Available Not Available No t Available Lexapro 20 mg tablet Take by oral route. active Not Available Not Available No t Available Zanaflex 2 mg capsule Take by oral route. active Not Available Not Available No t Available meloxicam active Not Available Not Marcia ilable Not Available Nexplanon 68 mg subdermal implant Inject 1 implant by subcutaneous route. 2016 active Not Available Not Available Not Avai lable Vitals Date Recorded Body weight Body height Body mass index (BMI) Systolic blood pressure Diastolic blood pressure Provider Name and Address Organization Details Last Updated DateTime 12/12/2016 000708.4 9 g 167.64 cm 39.6 kg/m2 118 mm[Hg] 90 mm[Hg] [facility] 16:15:25 Date Recorded Body height Body weight Body mass index (BMI) Systolic blood pressure Diastolic blood pressure Provider Name and Address Organization Details Last Updated DateTime 12/13/2016 167.64 cm 886499.6 g 39.8 kg/m2 120 mm[Hg] 86 mm[Hg] [facility] 14:04:33 Date Recorded Body height Body weight Body mass index (BMI) Systolic blood pressure Diastolic blood pressure Provider Name and Address Organization Details Last Updated DateTime 12/27/2016 167.64 cm 014900.9 3 g 39.6 kg/m2 116 mm[Hg] 84 mm[Hg] Venus Lowery [facility] 7 11:26:14 Social History Question Answer Notes LastModified by Organizat ion Details LastModified Time Tobacco Smoking Status [facility]2016 16:24:09 What Is Your Level Of Alcohol Consumption? None Information not available 12/12/2016 Is Blood Transfusion Acceptable In An Emergency? Yes Information not available 12/12/2016 What Is Your Level Of Caffeine Consumption? Heavy Information not available 12/12/2016 How Much Tobacco Do You Chew? None Information not available 12/12/2016 Are You Currently Employed? No Information not available 12/12/2016 What Type Of Diet Are You Following? REGULAR Information not available 12/12/2016 Which Illicit Or Recreational Drugs Have You Used? Denies Information not available 12/12/2016 Education 2 Year College Information not available 12/12/2016 Live Alone Or With Others? With Others Information not available 12/12/2016 How Many Children Do You Have? 4 Information not available 12/12/2016 Performs Monthly Self-breast Exam? Yes Sometimes Information not available 12/12/2016 Do You Use Protection During Sex? No Information not available 12/12/2016 What Is Your Relationship Status? Information not available 12/12/2016 Seat Belts Used Routinely Yes Information not available 12/12/2016 Are You Sexually Active? Yes Information not available 12/12/2016 General Stress Level High Information not available 12/12/2016 Do You Use Sunscreen Routinely? Yes Information not available 12/12/2016 Sex: Unknown Functional Status Question Answer Note LastModified by Organizat ion Details LastModified Time What is your exercise level? Occasional Information not available 12/12/2016 Mental Status None recorded. Family History Relationship Description Onset Age of this Age Resolved Age Notes LastModified by Organization Details LastModified Time Mother Heart disease [place] Not available 2016 16:21:51 Mother Diabetes mellitus [place] Not available 2016 16:23:46 Paternal Grandfather Heart disease [place] Not available 2016 16:21:51 Paternal Grandfather Hypertensive disorder [place] Not available 2016 16:22:22 Maternal Grandfather Heart disease [place] Not available 2016 16:21:51 Maternal Grandfather Hypertensive disorder [place] Not available 2016 16:22:22 Maternal Grandfather Cerebrovascu lar accident [place] Not available 16:22:29 Father Malignant neoplasm of brain [place] Not available 2016 16:22:47 Father Hypercholest erolemia [place] Not available 2016 16:23:58 Paternal Grandmother Malignant tumor of ovary [place] Not available 2016 16:23:08 Paternal Grandmother Diabetes mellitus [place] Not available 2016 16:23:46 Maternal Grandmother Leukemia [place] Not available 11/22 16:23:21 Medical History Condition Response Other N High Blood Pressure N Breast Cancer N Kidney or Bladder Problems N Thyroid Problems N GI Problems Y Lung Disease N Depression N Blood Clots N Acne Y Breast Problem Y Eating Disorder N Anemia N Anesthesia Complications N Headaches/Migraines Y Anxiety Disorder N Ovarian Cancer N Diabetes N Muscle, Joint, or Bone Problems Y Blood Transfusions N Seizures/Epilepsy N Polyps N Infertility N Acid Reflux (GERD) Y Cancer N Abuse/Domestic Violence N Asthma Y Endometriosis N High Cholesterol N Hepatitis N Liver Disease N Heart Disease N Pre-Eclampsia N Osteoporosis N Gynecological History Statement/Question Response On BCP's at Conception? N STIs/STDs N HPV Vaccine N Age at Menarche 18 Current Control Method Implant Age at First Child 25 Sexually Active? Y Menses Monthly N Date of Last Pap Smear Sexual Problems? N LMP Unknown Desired Control Method Implant Obstetrics History GPAL:G 4 P 4 0 0 4 Type Value Multiple Births 0 Full Term 4 Induced 0 Spontaneous 0 Premature 0 Living 4 Ectopics 0 Total 4 Past Encounters Encounter ID Performer Location Encounter Start Date Encounter Closed Date Diagnosis/Indication Diagnosis SNOMED-CT Code Diagnosis ICD10 Code Diagnosis Note [id number] Brittny Rosa Ab ([employer]) [address] [place] [address] 12/12/2016 15:54:42 12/16/2016 08:03:40 Contraception care management 574846251 Z30.9 Pt. is UTD with her pap smear. She sees an [employer] who does not insert or remove the Nexplanon. Pt. to schedule Nexplanon replacemen t within the next 10 days. Will do UPT and Nexplanon replacemen t. [id number] Brittny Berger ([employer]) [address] [place] [address] 12/13/2016 13:47:13 12/16/2016 08:09:02 Subcutaneous contraceptive implant palpable 311839429 Z30.49 Benefits, risks, and alternativ es to Nexplanon replacemen t d/w pt. Pt. expressed understand ing. All pt. questions answered. Consent signed and in chart. Current Nexplanon 12/10/16. UPT is negative today. Nexplanon replaced per protocol and without difficulty . Please see procedure note for details. Pt. tolerated the procedure well. RTO 2 weeks for follow-up. Removal of subcutaneous contraceptive done [id number] Z98.890 See above Insertion of subcutaneous contraceptive 065620591 Z30.9 See above. [id number] Brittny Chris Berger ([employer]) [address] [place] [address] 12/27/2016 10:55:15 12/30/2016 12:13:36 Subcutaneous contraceptive implant palpable 525302143 Z30.[address] Expectatio ns discussed. Health Concerns Section Related Observation LastModified by Organization Detai ls LastModified Time None Recorded Concern Status LastModified by Organization Details LastModified Time None Recorded Advance Directives Directive None Recorded Payers Encounter Date Sequence Insurance Name Policy Number Policy Larkin Covered Member ID Larkin Member ID Guarantor Name 12/12/2016 1 [place] [facility] [employer] [facility] [id number] Kayleyneo Mondragon 12/13/2016 1 [place] [employer] Kayleyneo Mondragon [id number] Kayley Mondragon 12/27/2016 1 [place] [employer] [facility] [place] [id number] Kayleyneo Mondragon Notes Date Note Type Note Provider Name and Address Organization Details Recorded Time 12/12/2016 text/html Pt. presents for consulation re Nexzplanon replacement. Her current Nexplanon 12/10/16. She likes it and wants another one. Brittny Chris león [place] - [facility] 12/13/2016 14:03:06 12/13/2016 text/html Pt. presents for Nexplanon replacement. She has no complaints. Her current Nexplanon 12/10/16. Brittny Rosa null, [place] - [facility] 12/13/2016 14:43:15 12/27/2016 text/html Pt. presents for follow up to Nexplanon insertion done 12/13/16. She has not had any bleeding since then. She denies any pain at the insertion site. Brittny león, [place] - [facility] 12/27/2016 15:58:11 OBGyn Episode Ob Episode Information Episode Created Date Number of Fetuses Patient Bloodtype Patient rh Status Prepregnancy Weight lbs Domestic Partner Domestic Partner Phone Father Name Retrimmer Status 12/13/19 17 1 CLOSED Fetus Data First Name Last Name Admitted to NICU Weight (g) Sex Living Outcome Pediatric Complications Fetus ID Race Codes Race Delivery Type 3798.83 3 M Full Term [id number] Vaginal Mohan Calculation Initial Mohan Date Initial Exam Date Initial Exam Provider Initial Ultrasound Date Last Menstrual Period Date Ultra Sound Weeks Gestation 0 Eighteen To Twenty Week Mohan Update Ultra Sound Date Fundal Height At Umbil Quickening Date Ultra Sound Latest Weeks Gestation Final Mohan Confirmed By Final Mohan Confirmed Date Final Mohan Date Ultra Sound Latest Days Gestation 0 0 Menstrual History Last Menstrual Date Menses Monthly On Bcp Conception Prior Menses Frequency Hcg Plus Date Menarche Onset Age Delivery Information Delivery Date Delivery Type Labor Anesthesia Weeks Gestation Incision Type Labor Labor Length Hrs Delivered By Post Complications Tubal Sterilization Discharge Date Comments 1 Discharge Information Feeding Method Contraceptive Method Maternal HG B and HCT Levels Ob Episode Information Episode Created Date Number of Fetuses Patient Bloodtype Patient rh Status Prepregnancy Weight lbs Domestic Partner Domestic Partner Phone Father Name Retrimmer Status 12/13/19 17 1 CLOSED Fetus Data First Name Last Name Admitted to NICU Weight (g) Sex Living Outcome Pediatric Complications Fetus ID Race Codes Race Delivery Type 3742.13 4 M Full Term [address] Vaginal Mohan Calculation Initial Mohan Date Initial Exam Date Initial Exam Provider Initial Ultrasound Date Last Menstrual Period Date Ultra Sound Weeks Gestation 0 Eighteen To Twenty Week Mohan Update Ultra Sound Date Fundal Height At Umbil Quickening Date Ultra Sound Latest Weeks Gestation Final Mohan Confirmed By Final Mohan Confirmed Date Final Mohan Date Ultra Sound Latest Days Gestation 0 0 Menstrual History Last Menstrual Date Menses Monthly On Bcp Conception Prior Menses Frequency Hcg Plus Date Menarche Onset Age Delivery Information Delivery Date Delivery Type Labor Anesthesia Weeks Gestation Incision Type Labor Labor Length Hrs Delivered By Post Complications Tubal Sterilization Discharge Date Comments 3 Discharge Information Feeding Method Contraceptive Method Maternal HG B and HCT Levels Ob Episode Information Episode Created Date Number of Fetuses Patient Bloodtype Patient rh Status Prepregnancy Weight lbs Domestic Partner Domestic Partner Phone Father Name Retrimmer Status 12/13/19 17 1 CLOSED Fetus Data First Name Last Name Admitted to NICU Weight (g) Sex Living Outcome Pediatric Complications Fetus ID Race Codes Race Delivery Type 3231.84 3 F Full Term [id number] Vaginal Mohan Calculation Initial Mohan Date Initial Exam Date Initial Exam Provider Initial Ultrasound Date Last Menstrual Period Date Ultra Sound Weeks Gestation 0 Eighteen To Twenty Week Mohan Update Ultra Sound Date Fundal Height At Umbil Quickening Date Ultra Sound Latest Weeks Gestation Final Mohan Confirmed By Final Mohan Confirmed Date Final Mohan Date Ultra Sound Latest Days Gestation 0 0 Menstrual History Last Menstrual Date Menses Monthly On Bcp Conception Prior Menses Frequency Hcg Plus Date Menarche Onset Age Delivery Information Delivery Date Delivery Type Labor Anesthesia Weeks Gestation Incision Type Labor Labor Length Hrs Delivered By Post Complications Tubal Sterilization Discharge Date Comments 3 Discharge Information Feeding Method Contraceptive Method Maternal HG B and HCT Levels Ob Episode Information Episode Created Date Number of Fetuses Patient Bloodtype Patient rh Status Prepregnancy Weight lbs Domestic Partner Domestic Partner Phone Father Name Retrimmer Status 12/13/19 17 1 CLOSED Fetus Data First Name Last Name Admitted to NICU Weight (g) Sex Living Outcome Pediatric Complications Fetus ID Race Codes Race Delivery Type 3373.36 3704 M Full Term [id number] Vaginal Mohan Calculation Initial Mohan Date Initial Exam Date Initial Exam Provider Initial Ultrasound Date Last Menstrual Period Date Ultra Sound Weeks Gestation 0 Eighteen To Twenty Week Mohan Update Ultra Sound Date Fundal Height At Umbil Quickening Date Ultra Sound Latest Weeks Gestation Final Mohan Confirmed By Final Mohan Confirmed Date Final Mohan Date Ultra Sound Latest Days Gestation 0 0 Menstrual History Last Menstrual Date Menses Monthly On Bcp Conception Prior Menses Frequency Hcg Plus Date Menarche Onset Age Delivery Information Delivery Date Delivery Type Labor Anesthesia Weeks Gestation Incision Type Labor Labor Length Hrs Delivered By Post Complications Tubal Sterilization Discharge Date Comments 0 Discharge Information Feeding Method Contraceptive Method Maternal HG B and HCT Levels
--- OUTSIDE RECORDS SUMMARY | 2024-09-17 14:31 | XMS_ITS | Data Portability ---
Author Organization [facility], Main Office Address [address] [place] [address] Assessment Encounter Date Assessment Date Assessment LastModified by Organization Details LastModified Time 08/22/2023 08/22/2023 [email or web address] Not available 16:51:21 Plan of Treatment Reminders Order Date Submit Date Provider Last Modified By Organization Details Last Modified Time Details Appointments Any 10 2024 09:50A Paola Li MD Not available Not available Not available Lab lipid panel, serum [address] [place] [address] (Lab), [address] [place] [address], [id number], 09/17/2024 11:26:43 CMP, serum or plasma [address] [place] [address] (Lab), [address] [place] [address], [id number], 09/17/2024 11:26:44 CBC w/ auto diff [address] [place] [address] (Lab), [address] [place] [address], [id number], 09/17/2024 11:26:44 TSH, serum or plasma [address] [place] [address] (Lab), [address] [place] [address], [id number], 09/17/2024 11:26:44 T4, free, serum [address] [place] [address] (Lab), [address] [place] [address], [id number], 09/17/2024 11:26:45 drug screen, urine 2024 025 [employer] [facility], [address], [place], [address], 09/17/2024 11:26:50 lipid panel, serum 2023 024 [facility] (Lab), [address] [place] [address] [address], [place], [address], 08/01/2023 13:27:56 CMP, serum or plasma 2023 024 [facility] (Lab), [address] [place] [address] [address], [place], [address], 08/01/2023 13:28:06 TSH, serum or plasma 2023 024 [facility] (Lab), [address] [place] [address] [address], [place], [address], 08/01/2023 13:29:40 T4, free, serum 2023 024 [facility] (Lab), [address] [place] [address] [address], [place], [address], 08/01/2023 13:29:55 vitamin B12, serum 2023 024 [facility] (Lab), [address] [place] [address] [address], [place], [address], 08/01/2023 13:49:05 magnesiu m, blood [address] (Lab), [address] [place] [address] [address], [place], [address], 08/31/2023 16:33:55 CBC w/ auto diff 2023 024 [facility] (Lab), [address] [place] [address] [address], [place], [address], 08/01/2023 12:42:17 drug screen, urine 2023 024 [employer] [facility], [address], [place], [address], 07/28/2023 19:19:33 lipid panel, serum [address] (Lab), [address] [place] [address], [address], 02/08/2023 14:07:09 CMP, serum or plasma 2022 023 [facility] (Lab), [address] [place] [address], [id number], 02/03/2023 12:50:01 CBC w/ auto diff [address] (Lab), [address] [place] [address], [id number], 02/08/2023 14:07:10 vitamin B12, serum 2022 023 [facility] (Lab), [address] [place] [address], [id number], 02/03/2023 12:50:01 magnesiu m, blood [address] (Lab), [address] [place] [address], [id number], 02/08/2023 14:07:09 TSH, serum or plasma [address] (Lab), [address] [place] [address], [id number], 02/08/2023 14:07:10 T4, free, serum [address] (Lab), [address] [place] [address], [id number], 02/08/2023 14:07:10 Referral None recorded . Procedures None recorded . Surgeries None recorded . Imaging None recorded . Medication Orders None recorded . Patient TargetsNo targets recorded. Patient Instructions Encounter Date Encounter Id Patient Instructions Last Modified By Organization Details Last Modified Time 01/31/2023 [id number] Asthma -GERD-chronic pain syndrome-obesity class one. Clinically stable. Check blood work consisting of CBC, CMP, thyroid, B12 and magnesium level. Continue on current Rx follow-up and six months [email or web address] Not available 01/31/2023 15:04:07 07/28/2023 [id number] risk assessment* [email or web address] Not availabl e 07/28/2023 12:28:24 INFLUENZA VACCIN E TD/TDAP Recommended today, patient declined Ordered Patient will get at local pharmacy/health department MAMMOGRAM Recommended today, but patient declined Ordered No screening indicated at this time/ no family history CERVICAL SCREENING/PELVIC EXAMINATION No screening necessary patient is up to date COLORECTAL SCREENING Recommended today, but patient declined Ordered Colonoscopy declined. Cologuard ordered No screening necessary until age 45 DEPRESSION SCREENING Negative BMI Overweight continue your current weight loss efforts try to lose 5% of your body weight try to lose 10% of your body weight NUTRITION PHYSICAL ACTIVITY Need more activity VISION ALCOHOL USE No alcohol use TOBACCO USE non smoker SEXUALLY ACTIVE GLUCOSE SCREENING LIPID SCREENING [email or web address] Not available 07/28/2023 12:06:28 Well patient evaluation risk assessment stable. Follow-up GERD-anxiety -chronic pain syndrome. Check blood work in the form of CBC, CMP, lipid, thyroid and urine drug screen. Continue on current medications. Follow-up in six months. Standard immunizations of RSV, COVID, influenza and shingles as recommended. Portions of the record may have been created with voice recognition software. Occasional wrong-word or ujuwc-s-[id number] substitutions may have occurred due to the inherent limitations of voice recognition software. Read the chart carefully and recognize, using context, where substitutions have occurred. [email or web address] Not available 07/28/2023 12:27:33 08/22/2023 [id number] soaking instructions; to soak qd in warm, soapy water, and Silvadene for dressings. [email or web address] Not available 08/22/2023 16:53:18 02/22/2024 [id number] Follow-up GERD, depression, migraine headaches, chronic pain syndrome and obesity class one all clinically stable. Does not need any blood test done at this time. Will continue on current Rx. Will increase the Zanaflex to 4 mg q.i.d.. Continue on current Rx and follow-up in six months Next Appointment: 6 Months Approximate Date: 08/20/2024 Portions of the record may have been created with voice recognition software. Occasional wrong-word or [id number]-m-[id number] substitutions may have occurred due to the inherent limitations of voice recognition software. Read the chart carefully and recognize, using context, where substitutions have occurred. [email or web address] Not available 02/22/2024 14:44:25 09/17/2024 [id number] Follow-up migraine headaches, asthma, anxiety disorder and chronic pain syndrome. Clinically stable. Check blood work consisting of CBC, CMP, lipid, thyroid and urine drug screen. Otherwise is clinically stable. Follow-up in six Follow Up: 6 Months Approximate Date: 03/16/2025 Portions of record are template driven. When necessary additional context will be provided. Additionally some portions have been created with voice recognition software. Occasional wrong-word or quzmp-k-[id number] substitutions may have occurred due to the inherent limitations of voice recognition software. Read the chart carefully and recognize, using context, where substitutions may have occurred. Created: Juan Li M.D. 09.17.2024 10:25 AM Not available 09/17/2024 11:25:57 Reason for Referral None Reported. Results Created Date Observation Date Name Description Value Unit Range Abnormal Flag Note LastModifiedBy Organization Detail LastModifiedTime 07/28/1907/28/2023 URINE DRUG SCREE N amphetamines NEGATI VE Amphe tamin e cut off 500 ng/mL Not Available [facility] (Lab) [address] [place], [address], 07/28/2023 19:19:33 07/28/1907/28/2023 URINE DRUG SCREE N barbiturates NEGATI VE Linda turat e cut off 200 ng/mL Not Available [facility] (Lab) [address] [place], [address], 07/28/2023 19:19:33 07/28/1907/28/2023 URINE DRUG SCREE N benzodiazepi álvaro NEGATI VE Benzo diaze pine cut off 200 ng/mL Not Available [facility] (Lab) [address] [place], [address], 07/28/2023 19:19:33 07/28/19 24 07/28/2023 URINE DRUG SCREE N cocaine NEGATI VE Cocai ne metab olite cut off 150 ng/mL Not Available [facility] (Lab) [address] [place], [address], 07/28/2023 19:19:33 07/28/19 24 07/28/2023 URINE DRUG SCREE N MDMA NEGATI VE MDMA cut off 500 ng/mL Not Available [facility] (Lab) [address] [place], [address], 07/28/2023 19:19:33 07/28/19 24 07/28/2023 URINE DRUG SCREE N methadone NEGATI VE Metha done cutof f 300 ng/mL . Not Available [facility] (Lab) [address] [place], [address], 07/28/2023 19:19:33 07/28/19 24 07/28/2023 URINE DRUG SCREE N opiates POSITI VE abnormal Opiat e cut off 300 ng/mL Not Available [facility] (Lab) [address] [place], [address], 07/28/2023 19:19:33 07/28/19 24 07/28/2023 URINE DRUG SCREE N oxycodone NEGATI VE Oxyco done cut off 100 ng/mL Not Available [facility] (Lab) [address] [place], [address], 07/28/2023 19:19:33 07/28/19 24 07/28/2023 URINE DRUG SCREE N phencyclidin e NEGATI VE PCP cut off 25 ng/mL Not Available [facility] (Lab) [address] [place], [address], 07/28/2023 19:19:33 07/28/19 24 07/28/2023 URINE DRUG SCREE N marijuana NEGATI VE abnormal Marij uana cut off 50 ng/mL ANY POSIT FABIANO RESUL TS REPOR MARLEN ARE UNCON FIRME D, AND SUCH, SHOUL D BE USED FOR MEDIC AL TREAT MENT PURPO SES ONLY. Not Available [facility] (Lab) [address] [place], [address], 07/28/2023 19:19:33 08/01/19 24 08/01/2023 CBC/C OMPLE TE BLD COUNT W/DIF F white blood cells 8.4 x10'3 /uL 4.2-10 .8 Not Available [facility] (Lab) [address] [place], [address], 08/01/2023 12:42:17 08/01/19 24 08/01/2023 CBC/C OMPLE TE BLD COUNT W/DIF F red blood cells 4.58 x10'6 /uL 3.80-5 .20 Not Available [facility] (Lab) [address] [place], [address], 08/01/2023 12:42:17 08/01/19 24 08/01/2023 CBC/C OMPLE TE BLD COUNT W/DIF F hemoglobin 13.7 g/dL 12.0-1 5.6 Not Available [facility] (Lab) [address] [place], [address], 08/01/2023 12:42:17 08/01/19 24 08/01/2023 CBC/C OMPLE TE BLD COUNT W/DIF F hematocrit 42.1 % 35.7-4 5.7 Not Available [facility] (Lab) [address] [place], [address], 08/01/2023 12:42:17 08/01/19 24 08/01/2023 CBC/C OMPLE TE BLD COUNT W/DIF F mean red cell volume 91.9 fL 82.0-9 9.0 Not Available [facility] (Lab) [address] [place], [address], 08/01/2023 12:42:17 08/01/19 24 08/01/2023 CBC/C OMPLE TE BLD COUNT W/DIF F mean red cell hemoglobin 29.9 pg 27.0-3 3.0 Not Available [facility] (Lab) [address] [facility] [place], [address], 08/01/2023 12:42:17 08/01/19 24 08/01/2023 CBC/C OMPLE TE BLD COUNT W/DIF F mean RBC HGB concentratio n 32.5 g/dL 31.0-3 6.0 Not Available [facility] (Lab) [address] [place], [address], 08/01/2023 12:42:17 08/01/19 24 08/01/2023 CBC/C OMPLE TE BLD COUNT W/DIF F red cell distribution width 12.1 % 11.8-1 5.[address] [facility] (Lab) [address] [place], [address], 08/01/2023 12:42:17 08/01/19 24 08/01/2023 CBC/C OMPLE TE BLD COUNT W/DIF F platelets 215 x10'3 /uL 150-40 0 Not Available [facility] (Lab) [address] [place], [address], 08/01/2023 12:42:17 08/01/19 24 08/01/2023 CBC/C OMPLE TE BLD COUNT W/DIF F mean platelet volume 11.4 fL 9.0-12 .4 Not Available [facility] (Lab) [address] [place], [address], 08/01/2023 12:42:17 08/01/19 24 08/01/2023 CBC/C OMPLE TE BLD COUNT W/DIF F neutrophils 66.2 % 39.0-7 2.0 Not Available [facility] (Lab) [address] [place], [address], 08/01/2023 12:42:17 08/01/19 24 08/01/2023 CBC/C OMPLE TE BLD COUNT W/DIF F lymphocytes 26.3 % 16.0-4 7.0 Not Available [facility] (Lab) [address] [place], [address], 08/01/2023 12:42:17 08/01/19 24 08/01/2023 CBC/C OMPLE TE BLD COUNT W/DIF F monocytes 4.6 % 5.0-12 .0 low Not Available [facility] (Lab) [address] [place], [address], 08/01/2023 12:42:17 08/01/19 24 08/01/2023 CBC/C OMPLE TE BLD COUNT W/DIF F eosinophils 2.2 % 1.0-7. [address] [facility] (Lab) [address] [place], [address], 08/01/2023 12:42:17 08/01/1908/01/2023 CBC/C OMPLE TE BLD COUNT W/DIF F basophils 0.5 % 0.0-2. 0 Not Available [facility] (Lab) [address] [place], [address], 08/01/2023 12:42:17 08/01/1908/01/2023 CBC/C OMPLE TE BLD COUNT W/DIF F immature granulocytes 0.2 % 0.00-0 .50 Not Available [facility] (Lab) [address] [place], [address], 08/01/2023 12:42:17 08/01/19 24 08/01/2023 CBC/C OMPLE TE BLD COUNT W/DIF F neutrophils, absolute count 5.53 x10'3 /uL 1.5-8. 0 Not Available [facility] (Lab) [address] [place], [address], 08/01/2023 12:42:17 08/01/1908/01/2023 CBC/C OMPLE TE BLD COUNT W/DIF F lymphocytes, absolute count 2.20 x10'3 /uL 1.07-3 .43 Not Available [facility] (Lab) [address] [place], [address], 08/01/2023 12:42:17 08/01/19 24 08/01/2023 CBC/C OMPLE TE BLD COUNT W/DIF F monocytes, absolute count 0.38 x10'3 /uL 0.29-0 .99 Not Available [facility] (Lab) [address] [place], [address], 08/01/2023 12:42:17 08/01/19 24 08/01/2023 CBC/C OMPLE TE BLD COUNT W/DIF F eosinophils, absolute count 0.18 x10'3 /uL 0.02-0 .53 Not Available [facility] (Lab) [address] [place], [address], 08/01/2023 12:42:17 08/01/1908/01/2023 CBC/C OMPLE TE BLD COUNT W/DIF F basophils, absolute count 0.04 x10'3 /uL 0.01-0 .08 Not Available [facility] (Lab) [address] [place], [address], 08/01/2023 12:42:17 08/01/1908/01/2023 CBC/C OMPLE TE BLD COUNT W/DIF F immature granulocytes ,absolute 0.02 x10'3 /uL 0.00-0 .05 Not Available [facility] (Lab) [address] [place], [address], 08/01/2023 12:42:17 08/01/1908/01/2023 CBC/C OMPLE TE BLD COUNT W/DIF F nucleated red blood cells 0.0 % -0 Not Available [facility] (Lab) [address] [place], [address], 08/01/2023 12:42:17 08/01/19 24 08/01/2023 CBC/C OMPLE TE BLD COUNT W/DIF F NRBC# 0.00 x10'3 /uL Not Available [facility] (Lab) [address] [place], [address], 08/01/2023 12:42:17 08/01/19 24 08/01/2023 MAGNE SIUM magnesium 2.1 mg/dL 1.6-2. 3 Not Available [facility] (Lab) [address] [place], [address], 08/01/2023 13:27:55 08/01/19 24 08/01/2023 LIPID PANEL cholesterol 149 mg/dL 140-19 9 NIH RUSSELL NSUS RECOM MENDA TION FOR ROGELIO STERO L: ADULT CHILD LOW RISK: <200 <170 BORDE RLINE : <200- 239 ----- HIGH RISK: >240 >200 Not Available [facility] (Lab) [address] [place], [address], 08/01/2023 13:27:56 08/01/1908/01/2023 LIPID PANEL triglyceride s 73 mg/dL 0-150 NIH RUSSELL NSUS REPOR T RECOM MENDA TION FOR TRIGL YCERI LASHAUN: ADULT CHILD LOW RISK: <150 ----- BODER LINE: 150-1 99 ----- HIGH RISK: >200 ----- Not Available [facility] (Lab) [address] [place], [address], 08/01/2023 13:27:56 08/01/19 24 08/01/2023 LIPID PANEL HDL cholesterol 34 mg/dL 40- low Not Available [facility] (Lab) [address] [place], [address], 08/01/2023 13:27:56 08/01/19 24 08/01/2023 LIPID PANEL LDL cholesterol, calculated 100 mg/dL 0-130 NIH RUSSELL NSUS REPOR T RECOM MENDA TIONS FOR LDL: ADULT CHILD LOW RISK <130 <110 (OPTI MAL LDL) <100 ----- BORDE RLINE : 130-1 59 ----- HIGH RISK: >160 >130 A TRIGL YCERI DE RESUL T >400 INVAL IDATE S THE CALCU LATIO N FOR LDL FRACT IONAT ION - THE LDL RESUL T WILL NOT BE REPOR MARLEN. Not Available [facility] (Lab) [address] [place], [address], 08/01/2023 13:27:56 08/01/19 24 08/01/2023 COMPR EHENS FABIANO METAB OLIC PANEL sodium 139 mmol/ L 137-14 [address] [facility] (Lab) [address] [place], [address], 08/01/2023 13:28:06 08/01/19 24 08/01/2023 COMPR EHENS FABIANO METAB OLIC PANEL potassium 4.5 mmol/ L 3.5-5. 1 Not Available [facility] (Lab) [address] [place], [address], 08/01/2023 13:28:06 08/01/19 24 08/01/2023 COMPR EHENS FABIANO METAB OLIC PANEL chloride 104 mmol/ L 98-107 Not Available [facility] (Lab) [address] [place], [address], 08/01/2023 13:28:06 08/01/19 24 08/01/2023 COMPR EHENS FABIANO METAB OLIC PANEL carbon dioxide 27 mmol/ L 22-30 Not Available [facility] (Lab) [address] [place], [address], 08/01/2023 13:28:08/01/19 24 08/01/2023 COMPR EHENS FABIANO METAB OLIC PANEL anion gap 12.5 mmol/ L 14-22 low Not Available [facility] (Lab) [address] [place], [address], 08/01/2023 13:28:08/01/19 24 08/01/2023 COMPR EHENS FABIANO METAB OLIC PANEL glucose 89 mg/dL 70-99 Not Available [facility] (Lab) [address] [place], [address], 08/01/2023 13:28:08/01/19 24 08/01/2023 COMPR EHENS FABIANO METAB OLIC PANEL BUN 20 mg/dL 8-19 high Not Available [facility] (Lab) [address] [place], [address], 08/01/2023 13:28:08/01/19 24 08/01/2023 COMPR EHENS FABIANO METAB OLIC PANEL creatinine 0.57 mg/dL 0.66-1 .25 low Not Available [facility] (Lab) [address] [place], [address], 08/01/2023 13:28:08/01/19 24 08/01/2023 COMPR EHENS FABIANO METAB OLIC PANEL GFR >60 Refer ence Range : Risco ge GFR Healt hy Adult : >60 mL/mi n/1.7 3 m2 Chron ic Kidne y Disea se: 15-60 mL/mi n/1.7 3 m2 Kidne y Failu re: <15/m L/min /1.73 m2 www.n iddk. nih.g ov The MDRD study equat ion has not been valid ated in child vesna <18 years of age; pregn ant women ; the elder ly >85 years of age; or in some racia l or ethni c subgr oups, such as Hispa nics. Outsi de the valid ated juanita eters , estim ated GFR is less accur ate, requi ring clini yuliana judgm ent on a case- by-ca se basis . Clini yuliana inter preta tion for other races and ages must be made by the clini alvin. The MDRD study equat ion has not been valid ated for the evalu ation of serum creat inine relat ed to nutri brad l statu s or medic ation usage . For perso ns <18 years of age, a pedia tric GFR calcu lator is avail able on the [facility] websi te: https ://deangelo w.yarelis harpery.o rg/pr ofess ional s/kdo qi/gf r_cal culat or Not Available [facility] (Lab) [address] [place], [address], 08/01/2023 13:28:08/01/19 24 08/01/2023 COMPR EHENS FABIANO METAB OLIC PANEL alkaline phosphatase 80 U/L 38-126 Not Available [facility] (Lab) [address] [place], [address], 08/01/2023 13:28:08/01/19 24 08/01/2023 COMPR EHENS FABIANO METAB OLIC PANEL alanine aminotransfe rase 15 U/L 0-35 Not Available [facility] (Lab) [address] [place], [address], 08/01/2023 13:28:08/01/19 24 08/01/2023 COMPR EHENS FABIANO METAB OLIC PANEL aspartate aminotransfe rase 19 U/L 15-37 Not Available [facility] (Lab) [address] [place], [address], 08/01/2023 13:28:08/01/19 24 08/01/2023 COMPR EHENS FABIANO METAB OLIC PANEL bilirubin, total 1.00 mg/dL 0.20-1 .30 Not Available [facility] (Lab) [address] [place], [address], 08/01/2023 13:28:08/01/19 24 08/01/2023 COMPR EHENS FABIANO METAB OLIC PANEL calcium 9.8 mg/dL 8.4-10 .2 Not Available [facility] (Lab) [address] [place], [address], 08/01/2023 13:28:06 08/01/19 24 08/01/2023 COMPR EHENS FABIANO METAB OLIC PANEL total protein 7.0 g/dL 6.3-8. 2 Not Available [facility] (Lab) [address] [place], [address], 08/01/2023 13:28:06 08/01/19 24 08/01/2023 COMPR EHENS FABIANO METAB OLIC PANEL albumin 4.3 g/dL 3.4-5. 0 Not Available [facility] (Lab) [address] [place], [address], 08/01/2023 13:28:06 08/01/19 24 08/01/2023 COMPR EHENS FABIANO METAB OLIC PANEL globulin 2.7 g/dL 2.6-4. 2 Not Available [facility] (Lab) [address] [place], [address], 08/01/2023 13:28:06 08/01/19 24 08/01/2023 COMPR EHENS FABIANO METAB OLIC PANEL A/G ratio 1.6 ratio 1.0-2. 0 Not Available [facility] (Lab) [address] [place], [address], 08/01/2023 13:28:06 08/01/19 24 08/01/2023 TSH thyroid-stim ulating hormone 1.150 uIU/m L 0.465- 4.680 Not Available [facility] (Lab) [address] [place], [address], 08/01/2023 13:29:40 08/01/19 24 08/01/2023 T4 FREE free T4 0.99 NG/dL 0.78-2 .19 Not Available [facility] (Lab) [address] [place], [address], 08/01/2023 13:29:55 08/01/19 24 08/01/2023 VITAM IN B12 (TOBIAS ISSA ) vb12 854 pg/mL 239-93 1 Not Available [facility] (Lab) [address] [place], [address], 08/01/2023 13:49:05 Result Notes None recorded. Problems Name Problem SNOMED Code Status Onset Date Resolution Date Notes Provider Name and Address Organization Details Recorded Time Renewal of prescripti on Active 2021 Not Available [facility] 3 13:52:57 Paronychia of toe of left foot 0376458740531 9100 Active 2019 Not Available [facility] 3 13:52:57 Irritable bowel syndrome 87729976 Active Not Available [facility] 3 13:52:57 Plantar fascial fibromatos is 26009785 Active Not Available [facility] 3 13:52:57 Acute sinusitis 48122129 Active 2021 Not Available [facility] 3 13:52:57 Asthma 245697845 Active Not Available [facility] 3 13:52:57 Anxiety disorder 871606106 Active 2016 Not Available [facility] 3 13:52:57 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 930224718 Active 2021 Not Available [facility] 3 13:52:57 Lumbar sprain 227778056 Active Not Available [facility] 3 13:52:57 Gastroesop hageal reflux disease 594514899 Active Not Available [facility] 3 13:52:57 Morbid obesity 793717696 Active 2021 Not Available [facility] 3 13:52:57 Finding of body mass index 851065174 Active 2021 Not Available [facility] 3 13:52:57 Depressive disorder 54721169 Active Not Available [facility] 3 13:52:57 Multiple joint pain 80005983 Active 2017 Not Available [facility] 3 13:52:57 Chronic pain syndrome 986988550 Active 2017 Not Available [facility] 3 13:52:58 Migraine 46105584 Active Not Available [facility] 3 13:52:58 Ingrowing toenail 897326992 Active 2019 Not Available [facility] 3 13:52:58 Acute urinary tract infection 835249917 Active 2021 Not Available [facility] 3 13:52:58 Herpes zoster 5282298 Active 2022 Not Available [facility] 3 13:52:58 Stomatitis 78820830 Active 2021 Not Available [facility] 3 13:52:58 Otitis media 72551051 Active 2021 Not Available [facility] 3 13:52:58 Secondary restless legs syndrome 340031098 Active 2022 Not Available [facility] 3 13:52:58 Candidiasi s of mouth 88259230 Active 2021 Not Available [facility] 3 13:52:58 Recurrent aphthous stomatitis 120416629 Active 2022 Juan Li MD [address], [address], [place], [address] , [employer] [facility] [email or web address]) 3 11:00:29 Obese class I [id number] 07 Active 2022 Juan Li MD [address], [place], [address] , [email or web address] 3 14:59:34 Cellulitis of toe of right foot 5903430752926 9106 Active 2022 Juan Li MD [address], [place], [address] , [email or web address] ([employer] 3 11:58:39 Cellulitis of foot 839301421 Active 2022 Juan Li MD [address], [address], [place], [address] , [place] [facility] 3 12:48:24 Allergic rhinitis 45906802 Active 2022 Juan Li MD [address], [address], [place], [address] , [place] [facility] 3 15:11:15 Eczema 97386181 Active 2023 Juan Li MD [address], [address], [place], [address] , [place] [facility] 4 15:39:28 Pain in right foot 6906019696873 07 Active 2023 Sanju Lan DPM [address], [address], [place], [address] , [place] [facility] 4 16:51:25 Pain in left foot 6670881117262 07 Active 2023 Sanju Lan DPM [address], [address], [place], [address] , [place] [facility] 4 16:51:42 Paronychia of toe of right foot 8525010056655 9102 Active 2023 Sanju Lan DPM [address], [address], [place], [address] , [place] [facility] 4 16:51:54 Acute pharyngiti s 153211915 Active 2023 Juan Li MD [address], [address], [place], [address] , [place] [facility] 4 11:49:36 Fever 467988302 Active 2024 PHILLIP [place], [place] [facility] 5 11:08:28 Fatigue 36892311 Active 2024 Juan Li MD [address] [address], [place], [address] , [place] - [facility] 5 11:25:45 Problem Notes None recorded. Medical Equipment None Reported. Allergies Allergen ID Allergen Name Allergen Category Reaction Reaction Severity Criticality Documentation Date Start Date Code Code System Note Provider Name and Address Organization Details Recorded Time 41829 Buspar medicatio n other mild Not available 09/21/2022 35105 0 RxNorm cause d heart to flutt er Not Available [facility] 3 13:54:43 Medications Name Sig Start Date [...] oral route. 03/02 completed ALANNA ADRIANA [address] [place] [id number] 06/04/19 85 8 HYDROCOD ONE BITARTRA TE-ACETA MINOPHE 7.5MG-32 5MG 120/30 Medicaid [employer] [facility] MD ALANNA ADRIANA [address] [facility] [place] [address] 06/04/19 85 8 HYDROCOD ONE BITARTRA TE-ACETA [place] 7.5MG-32 5MG 120/ 30 Medicaid [employer] [facility] E[facility] MD ALANNA ADRIANA [address] [facility] [place] [address] 06/04/19 85 8 HYDROCOD ONE BITARTRA TE-ACETA [place]OP[place] 7.5MG-32 5MG 120/30 Medicaid [employer] [place] JUAN LAN MD ALANNA ADRIANA [address] [place] [address] 06/04/19 85 09/27/2017 HYDROCOD ONE BITARTRA TE-ACETA MINOP[place] 7.5MG-32 5MG 120/30 Medicaid [employer] [place] ETIENNE MD ALANNA ADRIANA [address] [place] [address] 06/04/19 85 08/27/2017 HYDROCOD ONE BITARTRA TE-ACETA MINOPHE 7.5MG-32 5MG 120/30 Insuranc e [employer] [place]AN ETIENNE MD ALANNA ADRIANA [address] [place] [address] 06/04/19 85 07/27/2017 LORAZEPA M 1MG 90/30 Insuranc e [employer] [place] ETIENEN MD ALANNA ADRIANA [address] [place] [address] 06/04/19 85 07/26/2017 HYDROCOD ONE BITARTRA TE-ACETA MINOPHE 7.5MG-32 5MG 120/30 Insuranc e [employer] [place] JUAN LAN MD ALANNA ADRIANA [address] [place] [address] 06/04/19 85 7 HYDROCOD ONE BITARTRA TE-ACETA MINOPHE 7.5MG-32 5MG 120/30 Insuranc e [employer] [place]JUAN ETIENNE MDAGER ADRIANA [address] [place] [address] 06/04/19 85 7 LORAZEPA M 1MG 90/30 Insuranc e [employer] [place]UAN ETIENNE MD ALANNA ADRIANA [address] [place] [address] 06/04/19 85 7 HYDROCOD ONE BITARTRA TE-ACETA MINOPHE 7.5MG-32 5MG 23636/03 0 Medicaid [employer] [place] JUAN LI Not Available Not Available Not Available cephalexi [...] and Address Organization Details Last Updated DateTime 3 166.37 cm 32 kg/m2 62768.5 1 g 78 /min 97 [degF] 97 % 97 % 110 mm[Hg] 62 mm[Hg] Ernestine Medrano [facility] 3 14:45:01 Date Recorded Body height Body mass index (BMI) Body weight Body temperature Heart rate Oxygen saturation Oxygen saturation in Arterial blood by Pulse oximetry Systolic blood pressure Diastolic blood pressure Provider Name and Address Organization Details Last Updated DateTime 4 166.37 cm 30.5 kg/m2 94309.1 8 g 97.8 [degF] 87 /min 98 % 98 % 112 mm[Hg] 64 mm[Hg] Camelia Schneider MA [facility] 4 12:02:52 Date Recorded Body height Heart rate Oxygen saturation Oxygen saturation in Arterial blood by Pulse oximetry Body temperature Body mass index (BMI) Body weight Systolic blood pressure Diastolic blood pressure Provider Name and Address Organization Details Last Updated DateTime 4 166.37 cm 90 /min 98 % 98 % 97.6 [degF] 30.3 kg/m2 74424.5 9 g 138 mm[Hg] 60 mm[Hg] KARTIK Young [facility] [employer] [place] [employer] [facility] 4 14:11:10 Date Recorded Body height Body mass index (BMI) Body weight Heart rate Body temperature Oxygen saturation Oxygen saturation in Arterial blood by Pulse oximetry Systolic blood pressure Diastolic blood pressure Provider Name and Address Organization Details Last Updated DateTime 4 166.37 cm 30.6 kg/m2 24083.7 7 g 73 /min 97.8 [degF] 95 % 95 % 120 mm[Hg] 80 mm[Hg] Veena Henning Francheska [facility] [employer] [place] [employer] [facility] 4 14:25:17 Date Recorded Body height Body mass index (BMI) Body weight Heart rate Body temperature Oxygen saturation Oxygen saturation in Arterial blood by Pulse oximetry Systolic blood pressure Diastolic blood pressure Provider Name and Address Organization Details Last Updated DateTime 5 166.37 cm 28.7 kg/m2 67884.6 6 g 63 /min 97 [degF] 97 % 97 % 118 mm[Hg] 60 mm[Hg] Ernetsine Medrano [facility] [employer] [place] [employer] [facility] 5 11:04:11 Social History Question Answer Notes LastModified by [employer] ion Details LastModified Time Tobacco Smoking Status Never Smoker [facility] [employer] [place] [employer] [facility] 08/22/2023 14:12:25 What Is Your Level Of Alcohol Consumption? None [email or web address] Information not available 08/22/2023 If You Are , What Was Your Level Of Alcohol Consumption Prior To ? None [email or web address] Information not available 08/22/2023 What Is Your Level Of Caffeine Consumption? Occasional Information not available 08/22/2023 In The 14 Days Before Symptom Onset, Have You Had Close Contact With A Laboratory-confirm ed COVID-19 While That Case Was Ill? No [id number] Information not available 09/21/2022 In The 14 Days Before Symptom Onset, Have You Had Close Contact With A Person Who Is Under Investigation For COVID-19 While That Person Was Ill? No [id number] Information not available 09/21/2022 What Was The Date Of Your Most Recent Tobacco Screening? 08/22/2023 [email or web address] Information not available 08/22/2023 Do You Use Any Illicit Or Recreational Drugs? No [email or web address] Information not available 08/22/2023 Have You Recently Traveled Abroad? No [id number] Information not available 09/21/2022 Sex: Unknown Functional Status None recorded. Mental Status None recorded. Family History Nothing Reported Notes:Mother living [address] [facility] tial hypertension and sleep apnea s/p bariatric surgery Father living 54 essential hypertension and Glioblastoma multiforme One brother living and in good health Medical History Condition Response NERVE DISEASE N BLINDNESS N RHEUMATIC FEVER N KIDNEY STONES N BLADDER PROBLEMS N MRSA N OTHER # 1 N POLIO N LUNG DISEASE/DISORDER N COPD N RADIATION / CHEMOTHERAPY N Other # 2 N BLOOD DISEASES N EAR OR HEARING PROBLEMS N MUMPS N BOWEL PROBLEMS N DEPRESSION (INCLUDING POST ) N STROKE/TIA N ULCERS N BENIGN PROSTATIC HYPERPLASIA N MEASLES N MYOCARDIAL INFARCTION N OBESITY N GERD/NAUSEA N ANEURYSM N URINARY/BLADDER/KIDNEY PROBLEMS N CORONARY ARTERY DISEASE (CAD) N ADDICTION CONCERNS N ENDOMETRIOSIS N Impotence N USE OF BLOOD THINNERS N SKIN [...] APNEA N CHICKENPOX N INFECTIOUS DISEASE N HEART ARRHYTHMIA N PROSTATE N INSOMNIA N HIGH CHOLESTEROL / HYPERLIPIDEMIA N HYPERTHYROIDISM N EYE PROBLEMS N EDEMA N CHRONIC PAIN SYNDROME N HYPOTHYROIDISM N CAROTID BLOCKAGE N CONSTIPATION N BACK / NECK PROBLEMS Y HAVE YOU BEEN HOSPITALIZED OR SEEN IN [facility] IN THE PAST YEAR ? N ATHEROSCLEROSIS [...] Brain Problems N HERPES N DEMENTIA N HEADACHES/MIGRAINES Y SEIZURES/EPILEPSY N VASCULAR DISEASE N PACEMAKER N Blood Disorder N DIZZINESS N HEART DISEASE/HEART PROBLEMS N KIDNEY DISEASE N MULTIPLE SCLEROSIS N CARDIAC ARRHYTHMIA N CANCER: SPECIFY N ATRIAL FIBRILLATION N Gall Stones N PULMONARY EMBOLISM N AUTOIMMUNE DISEASE N Gynecological HistoryNo gynecological history recorded. Obstetrics History GPAL:G 0 P 0 0 0 0 Immunizations Vaccine Type Date Status Note Provider Nam e and Address Organization Details Recorded Time influenza, unspecified formulation 3 completed Rachel Ryan CMA null, [facility] 08/21/2023 09:51:56 influenza, unspecified formulation 4 completed KARTIK Bautista null, [place] [employer] [facility] 05/29/2024 14:33:00 COVID-19 Non-[place] Vaccine, Product Unknown 1 completed Not Available [facility] 09/21/2022 13:54:40 Influenza, adjuvanted, trivalent, PF 2 completed Not Available [facility] 09/21/2022 13:54:40 Influenza, split virus, quadrivalent, preservative 9 completed Not Available [facility] 09/21/2022 13:54:41 Influenza, split virus, quadrivalent, PF 8 completed Not Available [facility] 09/21/2022 13:54:41 Influenza, split virus, quadrivalent, preservative 7 completed Not Available [facility] 09/21/2022 13:54:41 Influenza, split virus, quadrivalent, PF 1 completed Not Available [facility] 09/21/2022 13:54:41 Influenza, split virus, quadrivalent, PF 6 completed Not Available [facility] 09/21/2022 13:54:41 Influenza, split virus, quadrivalent, preservative 5 completed Not Available [facility] 09/21/2022 13:54:41 Influenza, split virus, trivalent, preservative 4 completed Not Available [facility] 09/21/2022 13:54:41 Past Encounters Encounter ID Performer Location Encounter Start Date Encounter Closed Date Diagnosis/Indication Diagnosis SNOMED-CT Code Diagnosis ICD10 Code Diagnosis Note [id number] [facility] Internal Med Dennis llxiao [address] [facility] [place] [facility] [place] [address] 01/29/2021 00:00:00 01/29/2021 15:17:30 [id number] [facility] [address] [place] [address] y , [place] [address] 05/28/2021 00:00:00 05/28/2021 14:40:17 [id number] [facility] Internal Med [place] [address] [place] [address] y , [place] [address] 08/24/2021 00:00:00 08/24/2021 14:58:43 [id number] [facility] Internal Med [place] [address] [place] [address] y , [place] [address] 12/28/2021 00:00:00 12/28/2021 14:47:18 [id number] [facility] Internal Med [place] [address] [place] [address] y , [place] [address] 04/26/2022 00:00:00 04/26/2022 14:58:38 [id number] [facility] Internal Med [place] [address] [place] [address] y , [place] [address] 09/02/2022 00:00:00 09/02/2022 14:53:31 [id number] Juan Li MD [facility] Internal Med [place] [address] [place] [address] y , [place] [address] 01/31/2023 14:23:18 01/31/2023 15:14:44 Chronic pain syndrome 620078993 G89.4 Gastroesop hageal reflux disease 621428297 K21.9 Asthma 365673201 J45.90 9 Obese class I 8996189745 37804 E66.9 Screening for cardiovascular system disease 404575612 Z13.6 [id number] Juan Li MD [facility] Internal Med [place] [address] [place] [address] y , [place] [address] 07/28/2023 11:26:37 07/28/2023 12:38:44 Adult health examination 287361708 Z00.00 Depression screening 171 238473 Z13.31 Chronic pain syndrome 37 4356508 G89.4 Gastroesop hageal reflux disease 318147788 K21.9 Anxiety disorder 0250488 06 F41.9 Long-term current use of opiate analgesic drug 1222916724 47042 Z79.891 Screening for cardiovascular system disease 333400631 Z13.6 [id number] Sanju Lan DPM [facility] Podiatry [place] [address] [address] 08/22/2023 13:47:15 02/23/2024 11:20:56 Pain in right foot 0823486428 56157 M79.671 local anesthesia , P and A, w/ sharp matrixecto my (curretage and grinding) Pain in left foot 267340 7703 15356 M79.672 same as above, hallux Lt Paronychia of toe of left foot 7809498495 6312163 L03.032 Paronychia of toe of right foot 2376467821 8993852 L03.650 [id number] Juan Li MD [facility] Internal Med [facility] [address] [place] [address] [place] [address] 02/22/2024 14:13:55 02/22/2024 14:57:53 Chronic pain syndrome 634264945 G89.4 Gastroesop hageal reflux disease 173317419 K21.9 Obese class I 2958575711 56540 E66.9 Depressive disorder 3548 9007 F32.A Migraine 10615680 G43.90 9 [id number] Juan Li MD [facility] [place] [facility] [address] [facility] [facility] [address] [place] [address] 09/17/2024 10:40:51 09/17/2024 11:43:34 Chronic pain syndrome 695800603 G89.4 Anxiety disorder 7180871 06 F41.9 Migraine 95795090 G43.90 9 Asthma 638682118 J45.90 9 Long-term current use of opiate analgesic drug 2282240223 24704 Z79.891 Screening for cardiovascular system disease 605296476 Z13.6 Fatigue 49901414 R53.83 Health Concerns Section Related Observation LastModified by Organization Detai ls LastModified Time None Recorded Concern Status LastModified by Organization Details LastModified Time None Recorded Advance Directives Directive None Recorded Payers Encounter Date Sequence Insurance Name Policy Number Policy Larkin Covered Member ID Larkin Member ID Guarantor Name 01/31/2023 1 [facility] (MEDICAID HMO) [id number] Adriana Guevara Alanna [id number] Adriana Guevara [place] 07/28/2023 1 [facility] (MEDICAID HMO) [id number] 0003 Adriana Guevara [place] [id number] Adriaan Guevara [place] 08/22/2023 1 [facility] (MEDICAID HMO) [id number] 0003 Adriana Guevara Alanna [id number] Adriana Guevara [place] 02/22/2024 1 [facility] (MEDICAID HMO) [id number] 0003 Adriana Guevara [place] [id number] dAriana Guevara [place] 09/17/2024 1 [facility] (MEDICAID HMO) [id number] 0003 Adriana Guevara Alanna [id number] Adriana Guevara [place] Notes Date Note Type Note Provider Name and Address Organization Details Recorded Time 02/01/20 23 text/htm l Patient Name: Adriana MondragonDate Of Service: Monday ( 01.31.2023 ): 1985 Age: 37 There has been approximately a 16 lb weight loss since 09/02/2022. This represents approximately a 7.6% change in weight. Weight change attributable to lifestyle changes. Vital Signs:Blood Pressure: Sitting Rt. Arm 110/62Pulse: Sitting 78 /min and RegularRespirations: 12Height 65.5 in or 1.7 mWeight 195 lb or 88.5 kgBMI 32.0Temperature: 97 F or 36.1 CPulse Oximetry: 97 % at rest on no oxygen Chief Complaint: Addressed in HPI Problems or conditions discussed in the HPI were the only ones reviewed during the encounter.Only social and family history addressed in the HPI were reviewed during this encounter. Attendant(s): None Constitutional and Systemic Symptoms: none Medication Reconciliation: from medication list. History of Present Illness #1. Hx of asthma. Daily medications: Proair Hfa and Singulair. Uses bronchodilators very infrequently. Night time exacerbations: less than 2 times monthly There has been no cough, congestion, or sputum production. No changes in exercise tolerance. Denies any fever or chills. Tolerating the medications without problems. The current status could be classified as Intermittent asthma. Using nebulizer Treatments: No. #2. Hx of esophageal reflux currently stable. Hx of Complications: none The severity, duration and intensity of symptoms have improved. Frequency: most meals Treatment consists medications taken on intermittent basis. Current therapy includes Prilosec Otc. There has been no nausea, eructation, vomiting, hematemesis, dysphagia, velopharyngeal insufficiency and odynophagia. No change in he frequency or intensity of symptoms. Has had no melena. Has had no hematemesis. Discuss the possibility of trying to reduce the frequency of the use of any PPI inhibitors or H2 antagonist to see if symptoms can be controlled with last intensive therapy #3. Chronic pain management for chronic cervical, thoracic, lumbar and generalized joint pain Since last examination somewhat improved Interval Testing: noneHas tried NSAIDS partial relief requiring additional medication. Pain Description: constant, exacerbated by activity and interferes with enjoyment and ability to perform activities of daily living. Severity: Yes. Currently seeing or has seen in the past a [employer] C[employer] Hand: 5Pain - Enjoyment of Life - General Activity ScalePain on Average: 4Enjoyment of Live: 5General Activity: 5Score: Mobic and NorcoCurrently regimen consists of 20 as prescribed with no evidence of abuse or self prescribing. Current Average Morphine Milligram Approximate Equivalent: NA mg approximated if taking full dosage daily. Recommend: noBenzodiazepines or other hypnotics: kept medications the sameAlternative pain management modalities (acupuncture - behavior therapy- additional PT - SNRIs) have been discussed and have either been tried in the past or not acceptable alternatives to patient or not available in our location.Will not indicated and this time.Urine Testing: yes and no discrepancies or multiple prescribers noted.Controlled substance database Class 1 Obesity BMI 30-34.99. Pill counts when available have been acceptable. 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 Last Query: 09/15/2022Need Drug Screen! Last: 09/02/2022Last Pain Contract! 09/02/2022 #4. Hx of obesity. Currently No. Has tried numerous dietary support and supplements with no benefit. Instructed on the health consequences of the obese status particularly cancer - diabetes and heart disease. Discussed new modalities of weight loss including GLP-1 medications that are used to treat diabetes. Potential candidate for bariatric surgery: No and was offered to be evaluated and instructed by structural analysis engineer on weight loss diet. Wishes to be evaluated by Dietary: [Dietary Consult?*, Yes, No and was offered to be evaluated and instructed by structural analysis engineer on weight loss diet].Medication List Reviewed and Reconciled 01/31/2023Mobic 15MG Take One Tablet DailyZanaflex 4 MG (CAPSULE - ORAL) One TidImitrex 100 MG (TABLET - ORAL) As DirectedProair Hfa 2 Puffs Four Times A DaySingulair 10 MG (TABLET - ORAL) DailyZoloft 100 MG (TABLET - ORAL) One DailyNorco 325 MG-5 MG (TABLET - ORAL) One Four Times DailyPrilosec Otc 20 MG (TABLET, DELAYED RELEASE - ORAL) One DailyRopinirole 1 MG TABLET One HsNeurontin 300 MG (CAPSULE - ORAL) One TidADRs List Reviewed 01/31/2023uspar Heart FlutterVaccination and Hrccpiahczqo7932-77 Ooqdjujxt7784-49 Covid PfizerSurgical HistoryGastric Sleve, Lap CholecystectomyPreventative Testing Confirmed by Our Dpekscb8908/31/2021 ALBUMIN 4.1 G/DLSocial HistoryDoes not smoke or drinkWorks at UPSFamily HistoryMother living 62 essential hypertension and sleep apnea s/p bariatric surgery and hx of atrial fibrillationFather 54 essential hypertension and Glioblastoma multiformeOne brother living and in good healthMenarche 12 Menopause A0 Juan Li MD [address] [facility] [facility] [address], [place], [address], [facility] 01/31/2023 15:04:29 07/28/19 24 text/htm l Patient Name: Adriana Guevara AlannaDate Of Service: Monday ( 07.28.2023 ): 1985 Age: 38 There has been approximately a 9 lb weight loss since 01/31/2023. This represents approximately a 4.6% change in weight. Weight change attributable to lifestyle changes. Vital Signs:Blood Pressure: Sitting Rt. Arm 112/64Pulse: Sitting 87 /min and RegularRespiratory Rate: 12Height 65.5 in or 1.7 mWeight 186 lb or 84.4 kgBMI 30.5Temperature: 97.8 F or 36.6 CPulse Oximetry: 98 % at rest on no oxygen Chief Complaint: Addressed in HPI Problems or conditions discussed in the HPI were the only ones reviewed during the encounter.Only social and family history addressed in the HPI were reviewed during this encounter. Attendant(s): HusbandConstitutional and Systemic Symptoms:none Medication Reconciliation: from medication list. History of Present Illness In for a well patient check up. Last well patient evaluation was approximately one year. No interval complaints of any major medical problems. No hx of any chest pain, shortness of breath, nausea, vomiting, diarrhea or constitutional symptoms. Also being followed for other chronically monitored problems.Has Had A Mammogram Juan Pablo Had A Pap Smear dueImmunizations Up To Date or refuses to takeNo Significant Change In Family HxColonoscopy or Cologuard: not dueFall Risk normalDepression Score: 0Hearing normalVision normalReviewed Smoking and Drug HistoryReviewed Immunization HistoryInstructed on importance of weight on diabetes, heart and other diseases aggravated by obesity. #1. Hx of esophageal reflux currently stable. Hx of Complications: none The severity, duration and intensity of symptoms have improved. Frequency: most meals Treatment consists medications taken on intermittent basis. Current therapy includes Prilosec Otc. There has been no nausea, eructation, vomiting, hematemesis, dysphagia, velopharyngeal insufficiency and odynophagia. No change in he frequency or intensity of symptoms. Has had no melena. Has had no hematemesis. Discussedthe possibility of trying to reduce the frequency of the use of any PPI inhibitors and try H2 antagonists to see if symptoms can be controlled with lease intensive therapy since a number of complications are associated with chronic prolonged use of PPI inhibitors. #2. Anxiety Disorder: History of anxiety disorder. There [...] is no contraindication to continue current therapy. #3. Chronic pain management for chronic lumbar and generalized joint pain Since last examination somewhat improved Interval Testing: noneHas tried NSAIDS partial relief requiring additional medication. Pain Description: constant, exacerbated by activity and interferes with enjoyment and ability to perform activities of daily living. 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 Current Average Morphine Milligram Approximate Equivalent: 20 mg approximated if taking full dosage daily. Recommend: NA.Benzodiazepines or other hypnotics: no.Alternative pain management modalities (acupuncture - behavior therapy- additional PT - SNRIs) have been discussed and have either been tried in the past or not acceptable alternatives to patient or not available in our location.Will kept medications the same.Urine Testing: will be performed and patient instructed that failure of testing within a 24 hour period from time of order may result in termination of medication.Controlled substance database yes and no discrepancies or [...] cooperating heavy machinery and have advised against this.Medication List Reviewed and Reconciled 07/28/2023Mobic 15MG Take One Tablet DailyZanaflex 4 MG (CAPSULE - ORAL) One TidImitrex 100 MG (TABLET - ORAL) As DirectedProair Hfa 2 Puffs Four Times A DaySingulair 10 MG (TABLET - ORAL) DailyZoloft 100 MG (TABLET - ORAL) One DailyNorco 325 MG-5 MG (TABLET - ORAL) One Four Times DailyPrilosec Otc 20 MG (TABLET, DELAYED RELEASE - ORAL) One DailyRopinirole 1 MG TABLET One HsNeurontin 300 MG (CAPSULE - ORAL) One TidADRs List Reviewed 4Buspar Heart FlutterVaccination and Yztpuwlrltzn0144-82 Xahjqhghk2434-79 Covid PfizerSurgical HistoryGastric Sleve, Lap CholecystectomyPreventative Testing Confirmed by Our Zdlocts0108/31/2021 ALBUMIN 4.1 G/DL NSocial HistoryDoes not smoke or drinkWorks at UPSFamily HistoryMother living 62 essential hypertension and sleep apnea s/p bariatric surgery and hx of atrial fibrillationFather 54 essential hypertension and Glioblastoma multiformeOne brother living and in good healthMenarche 12 Menopause A0 Juan Li MD [address] [facility], [place] [address], [place], [address], [employer] 07/28/2023 12:28:32 08/22/19 24 text/htm l Pt has had ingrown nails, torres great toenails. Pt has had procedures performed several times, but the nails have regrown and the infections have recurred. Seeks definitive tx this date. Sanju Lan DPM [address] [facility], [place] [address], [place], [address], [employer] [employer] 08/22/2023 16:53:23 02/22/20 24 text/htm l Patient Name: Adriana Stokes Of Service: February ( 02.22.2024 ): 1985 Age: 38 Vital Signs:Blood Pressure: Sitting Rt. Arm 120/80Pulse: Sitting 73 /min and RegularRespiratory Rate: 14Height 65.5 in or 1.7 mWeight 187 lb or 84.8 kgBMI 30.6Temperature: 97.8 F or 36.6 CPulse Oximetry: 95 % at rest on no oxygen Chief Complaint: Addressed in HPI Problems or conditions discussed in the HPI were the only ones reviewed during the encounter.Only social and family history addressed in the HPI were reviewed during this encounter. Attendant(s): HusbandConstitutional and Systemic Symptoms:none Medication Reconciliation: from medication list. History of Present Illness #1. Hx of esophageal reflux currently stable. Hx of Complications: none The severity, duration and intensity of symptoms have improved. Frequency: most meals Treatment consists medications taken on intermittent basis. Current therapy includes Prilosec Otc. There has been no nausea, eructation, vomiting, hematemesis and dysphagia. No change in he frequency or intensity of symptoms. Has had no melena. Has had no . Discussed use of H2 antagonists and the possibility of trying to reduce the frequency of the use of any PPI inhibitors and try H2 antagonists to see if symptoms can be controlled with lease intensive therapy since a number of complications are associated with chronic prolonged use of PPI inhibitors. #2. Hx of depression currently stable. Pharmacological treatment : Zoloft . Suicidal thoughts or ideas: None Loss of appetite: No Sleep Disturbance: No Hallucinations: No Is currently seeing no one. Discussed possibility of decreasing and weaning off medication. Feels that current regimen is working fine and wishes not to change the current treatment regimen. No contraindication to continue current therapy. #3. Hx of migraines currently stable: No change in duration, frequency or intensity of headaches. Occurs at a frequency of approximately monthly. Location: generalized area. Associated Symptoms: nausea and photophobia Hx of CVS no hx. Currently taking Imitrex and Hydrocodone. The headaches are adequately controlled. MIDAS Level: 0-5 Little or no disability #4. Chronic pain management for chronic lumbar and generalized joint pain Since last examination somewhat improved Interval Testing: noneHas tried NSAIDS partial relief requiring additional medication. Pain Description: constant, exacerbated by activity and interferes with enjoyment and ability to perform activities of daily living. 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 Current Average Morphine Milligram Approximate Equivalent: 20 mg approximated if taking full dosage daily. Recommend: NA.Benzodiazepines or other hypnotics: no.Alternative pain management modalities (acupuncture - behavior therapy- additional PT - SNRIs) have been discussed and have either been tried in the past or not acceptable alternatives to patient or not available in our location.Will kept medications the same.Urine Testing: not indicated and this time.Controlled substance database yes and no discrepancies or [...] heavy machinery and have advised against this. #5. Hx of obesity. Currently Class 1 Obesity BMI 30-34.99. Has tried numerous dietary support and supplements with no benefit. Instructed on the health consequences of the obese status particularly cancer - diabetes and heart disease. Discussed other modalities of weight loss no. Potential candidate for bariatric surgery: No. Wishes to be evaluated by Dietary: No and was offered to be evaluated and instructed by structural analysis engineer on weight loss diet. Active Medication ListMobic 15MG Take One Tablet [...] Drug Reactions ReviewedBuspar Heart Flutter Vaccination and Yqnffmmgmelo6696-93 Iejwwsjus2796-05 Covid [facility] Pzlfpnz4839-29 Gastric Xkodl2051-02 Lap Cholecystectomy Preventative Mssymbv1108/01/2023 ALBUMIN 4.3 G/DL Social HistoryDoes not smoke or drinkWorks at [employer] Family HistoryMother living 62 essential hypertension and sleep apnea s/p bariatric surgery and hx of atrial fibrillationFather 54 essential hypertension and Glioblastoma multiformeOne brother living and in good healthMenarche 12 Menopause A0 uJan Li MD [address] [facility] [address], [place], [address], [place] - [facility] [employer] (ServiceCEO) 02/22/2024 14:45:07 09/17/19 25 text/htm l Patient Name: Adriana Stokes Of Service: Monday ( 09.17.2024 ): 1985 [...] or has seen in the past a Hat And Cap Parts Cutter Hand: 4 .Pain - Enjoyment of Life - [...] ReviewedBuspar Heart Flutter Vaccination and Immunization( ) 2024-05 INFLUENZA(X) 2021-02 COVID [facility] Mhlppkl8491-42 Gastric Mqzbs5558-55 Lap Cholecystectomy Preventative Testing( ) 08/01/2023 Albumin 4.3 G/DL Social HistoryDoes not smoke or drinkWorks at [facility] Family HistoryMother living 62 essential hypertension and [...] ReviewedBuspar Heart Flutter Vaccination and Immunization( ) 2024-05 INFLUENZA(X) 2021-02 [employer] Surgical Famxgls3532-50 Gastric Puzyq1796-95 Lap Cholecystectomy Preventative Testing( ) 08/01/2023 Albumin 4.3 G/DL Social HistoryDoes not smoke or drinkWorks at [facility] Family HistoryMother living 62 essential hypertension and sleep apnea s/p bariatric surgery and hx of atrial fibrillationFather 54 essential hypertension and Glioblastoma multiformeOne brother living and in good healthMenarche 12 Menopause A0 Juan Li MD [address] [facility], [facility] [address], [place], [address], [place] [facility] 09/17/2024 11:26:23 OBGyn Episode No OBEpisode recorded.
== END 2024-09-17 12:49 | disposition home or self-care (01) ==
LOC: CHSLAB 12:51
PROVIDERS: PCP Internal Medicine; Visit Provider Internal Medicine
DX: Z79.891 Long term (current) use of opiate analgesic (principal)
CPT/HCPCS: 80307

== ENCOUNTER 2024-09-18 07:45 | Outpatient (CLI) | payer OTHER, SELFPAY ==
--- OUTSIDE RECORDS SUMMARY | 2024-09-18 07:49 | XMS_ITS | Encounter Summary ---
Author Organization [facility] Address [address] [place] [address] Care Team Providers Care Instrument Lens Inspector Name Role Phone Unavailable Primary Care Provider Unavailabl e Encounter Details Date Type Department Care Team (Late st Contact Info) Description 12/29/2018 Abstract SFL CONVERSION [address] [place] [address] , Generic Conversion, Social History Tobacco Use [...]
--- OUTSIDE RECORDS SUMMARY | 2024-09-18 07:49 | XMS_ITS | Clinical Summary ---
Author Organization [facility] Address [address] [place] [address] Care Team Providers Care Account Engineer Name Role Phone Kal Li MD Primary [...] change. Assessment & Plan (09/13/2022 8:49 AM BRUSH HAND): Continue small frequent meals. Continue to exercise [...] reassess Assessment & Plan (09/23/2021 9:55 AM BRUSH HAND): Given their past success the patient would [...] 03/14/2023 Assessment & Plan (06/14/2022 9:00 AM BRUSH HAND): Continue small frequent meals. Okay to return [...] been discussed and handout given. We will general counselor the patient to avoid for at [...] on file Legal Sex Female 7:38 PM BRUSH HAND Gender Identity Female 09/12/2022 7:43 PM BRUSH HAND Sexual Orientation Straight 09/12/2022 7: 43 PM BRUSH HAND Obstetrics History Last Filed Vital Signs Vital [...] patient's age to complete this topic Insurance [facility] Advance Directives For more information, please contact: [phone] * Full Code (Latest Code Status on File) Date Activated Date Inactivated Comments 05/04/2022 3:34 PM 05/06/2022 7:18 PM * Full Code Date Activated Date Inactivated Comments 02/08/2022 12:38 PM 02/08/2022 6:44 PM * Full Code Date Activated Date Inactivated Comments 02/08/2022 12:38 PM 02/08/2022 12:38 PM Care Teams Account Engineer Relationship Specialty Start Date End Date Kal Li MD [address] [place] [address] PCP - General Internal Medicine 08/27/21
--- OUTSIDE RECORDS SUMMARY | 2024-09-18 07:49 | XMS_ITS | Clinical Summary ---
Author Organization [facility] Address [address] [place] [address] Care Team Providers Care Sports Teacher Name Role Phone Unavailable Primary Care Provider [...]
--- OUTSIDE RECORDS SUMMARY | 2024-09-18 07:49 | XMS_ITS | Referral Summary ---
Author Organization [facility] Address [address] [place] [address] Care Team Providers Care Child Welfare Counselor Name Role Phone Kal Li MD Primary [...] change. Assessment & Plan (09/13/2022 8:49 AM CARPET TECHNICIAN): Continue small frequent meals. Continue to exercise [...] reassess Assessment & Plan (09/23/2021 9:55 AM CARPET TECHNICIAN): Given their past success the patient would [...] 03/14/2023 Assessment & Plan (06/14/2022 9:00 AM CARPET TECHNICIAN): Continue small frequent meals. Okay to return [...] been discussed and handout given. We will child welfare counselor the patient to avoid for at [...] on file Legal Sex Female 7:38 PM CARPET TECHNICIAN Gender Identity Female 09/12/2022 7:43 PM CARPET TECHNICIAN Sexual Orientation Straight 09/12/2022 7: 43 PM CARPET TECHNICIAN Last Filed Vital Signs Vital Sign Reading [...] Plan of Treatment Not on file Insurance [facility] Advance Directives For more information, please contact: [phone] * Full Code (Latest Code Status on File) Date Activated Date Inactivated Comments 05/04/2022 3:34 PM 05/06/2022 7:18 PM * Full Code Date Activated Date Inactivated Comments 02/08/2022 12:38 PM 02/08/2022 6:44 PM * Full Code Date Activated Date Inactivated Comments 02/08/2022 12:38 PM 02/08/2022 12:38 PM Care Teams Child Welfare Counselor Relationship Specialty Start Date End Date Kal Li MD [address] [place] [address] PCP - General Internal Medicine 08/27/21
--- OUTSIDE RECORDS SUMMARY | 2024-09-18 07:50 | XMS_ITS | Data Portability ---
[facility] Organization [facility] Address [address] [place] [address] Care Team Providers Care Hackler Doll Wigs Name Role Phone BRITTNY ROSA Pattern Cutter JUAN MENCHACA Primary Care Provider Assessment No assessment recorded. Plan of Treatment Reminders Order Date Submit Date Provider Last Modified By Organization Details Last Modified Time Details Appointments None recorded. Lab test, urine 2016 017 [place] [address] In-Office Order, Internal Use Only DO Not Attach Compendium DO Not Attach Compendium, Do Not Delete/merge, [id number] 14:41:38 Referral None recorded. Procedures None recorded. Surgeries None recorded. Imaging None recorded. Medication Orders Nexplanon 68 mg subdermal implant [address] [facility] [place], [address], 7 14:41:38 Patient TargetsNo targets recorded. Patient InstructionsNo instructions recorded. Reason for Referral None Reported. Results Created Date Observation Date Name Description Value Unit Range Abnormal Flag Note LastModifiedBy Organization Detail LastModifiedTime 12/14/19 17 12/13/2016 pregn nuno test, urine HCG negati ve Not Available In-Office Order Internal Use Only DO Not Attach Compendium DO Not Attach Compendium, Do Not Delete/merge, [id number] 12/13/2016 14:14:20 Result Notes None recorded. Problems Name Problem SNOMED Code Status Onset Date Resolution Date Notes Provider Name and Address Organization Details Recorded Time Lower back injury 887483701 Active 017 Venus Lowery [facility] 12/12/2016 16:17:06 Problem Notes None recorded. Procedures Surgical History Date Name Laterality Status Provider Name and Address Organization Details Recorded Time 12/14/19 17 Control Implant Replacement completed Brittny Rosa [facility] 12/13/2016 14:38:14 Cholecystectomy completed Venus Lowery [facility] 12/12/2016 16:25:54 Imaging Results None recorded. Procedure Notes None recorded. Medical Equipment None Reported. Allergies No known drug allergies Medications Name Sig Start Date Stop Date Status Note LastModified by Organization Details LastModified Time [place] 7.5 mg-325 mg tablet Take by oral [...] Address Organization Details Last Updated DateTime 12/12/2016 907201.4 9 g 167.64 cm 39.6 kg/m2 118 mm[Hg] 90 mm[Hg] [facility] 16:15:25 Date Recorded Body height Body weight Body mass index (BMI) Systolic blood pressure Diastolic blood pressure Provider Name and Address Organization Details Last Updated DateTime 12/13/2016 167.64 cm 702887.6 g 39.8 kg/m2 120 mm[Hg] 86 mm[Hg] [facility] 14:04:33 Date Recorded Body height Body weight Body mass index (BMI) Systolic blood pressure Diastolic blood pressure Provider Name and Address Organization Details Last Updated DateTime 12/27/2016 167.64 cm 463839.9 3 g 39.6 kg/m2 116 mm[Hg] 84 mm[Hg] Venus Loweyr [facility] 7 11:26:14 Social History Question Answer Notes LastModified by Organizat ion Details LastModified Time Tobacco Smoking Status Never [facility]oker [facility] 12/12/2016 16:24:09 What Is Your Level Of [...] 2016 16:22:22 Maternal Grandfather Cerebrovascu lar accident [place] Not available 16:22:29 Father Malignant neoplasm of [...] SNOMED-CT Code Diagnosis ICD10 Code Diagnosis Note [id number] Brittny Rosa Ab (COST ESTIMATOR) [address] [place] [address] 12/12/2016 15:54:42 12/16/2016 08:03:40 Contraception care management 005156198 Z30.9 Pt. is UTD with her pap smear. She sees an COST ESTIMATOR who does not insert or remove the Nexplanon. Pt. to schedule Nexplanon replacemen t within the next 10 days. Will do UPT and Nexplanon replacemen t. [id number] Brittny Berger (COST ESTIMATOR) [address] [place] [address] 12/13/2016 13:47:13 12/16/2016 08:09:02 Subcutaneous contraceptive implant palpable 933498009 Z30.49 Benefits, risks, and alternativ es to Nexplanon replacemen t d/w pt. Pt. expressed understand ing. All pt. questions answered. Consent signed and in chart. Current Nexplanon 12/10/16. UPT is negative today. Nexplanon replaced per protocol and without difficulty . Please see procedure note for details. Pt. tolerated the procedure well. RTO 2 weeks for follow-up. Removal of subcutaneous contraceptive done [id number] 23106 Z98.890 See above Insertion of subcutaneous contraceptive 647748864 Z30.9 See above. [id number] Brittny Chris Berger (COST ESTIMATOR) [address] [place] [address] 12/27/2016 10:55:15 12/30/2016 12:13:36 Subcutaneous contraceptive implant palpable 715359733 Z30.[address] Expectatio ns discussed. Health Concerns Section Related Observation LastModified by Organization Detai ls LastModified Time None Recorded Concern Status LastModified by Organization Details LastModified Time None Recorded Advance Directives Directive None Recorded Payers Encounter Date Sequence Insurance Name Policy Number Policy Larkin Covered Member ID Larkin Member ID Guarantor Name 12/12/2016 1 [place] [facility] [id number] Kayleyneo Mondragon 12/13/2016 1 [place] [facility] Kayleyneo Mondragon [id number] Kayley Mondragon 12/27/2016 1 [place] [facility] [id number] Kayleyneo Mondragon Notes Date Note Type Note Provider Name and Address Organization Details Recorded Time 12/12/2016 text/html Pt. presents for consulation re Nexzplanon replacement. Her current Nexplanon 12/10/16. She likes it and wants another one. Brittny Chris león [place] - [facility] 12/13/2016 14:03:06 12/13/2016 text/html Pt. [...] Domestic Partner Domestic Partner Phone Father Name Group Manager Status 12/13/19 17 1 CLOSED Fetus Data First Name Last Name Admitted to NICU Weight (g) Sex Living Outcome Pediatric Complications Fetus ID Race Codes Race Delivery Type 3798.83 3 M Full Term [address] Vaginal Mohan Calculation Initial Mohan Date Initial [...] Domestic Partner Domestic Partner Phone Father Name Group Manager Status 12/13/19 17 1 CLOSED Fetus Data First Name Last Name Admitted to NICU Weight (g) Sex Living Outcome Pediatric Complications Fetus ID Race Codes Race Delivery Type 3742.13 4 M Full Term [address] Vaginal Mohan Calculation Initial Mohan Date Initial [...] Domestic Partner Domestic Partner Phone Father Name Group Manager Status 12/13/19 17 1 CLOSED Fetus Data First Name Last Name Admitted to NICU Weight (g) Sex Living Outcome Pediatric Complications Fetus ID Race Codes Race Delivery Type 3231.84 3 F Full Term [address]12 Vaginal Mohan Calculation Initial Mohan Date Initial [...] Domestic Partner Domestic Partner Phone Father Name Group Manager Status 12/13/19 17 1 CLOSED Fetus Data First Name Last Name Admitted to NICU Weight (g) Sex Living Outcome Pediatric Complications Fetus ID Race Codes Race Delivery Type 3373.36 3704 M Full Term [address]49[address] Vaginal Mohan Calculation Initial Mohan Date Initial [...]
[2024-09-18 07:57] LABS: Basophils Absolute Auto 0.06 K/mm3 (0.00-0.10); Basophils Percent Auto 1.1 % (0.0-1.0); Eosinophils Percent Auto 3.7 % (1.0-6.0); Hematocrit 40.3 % (35.0-49.0); Hemoglobin 13.3 g/dL (12.0-15.0); Immature Granulocyte Absolute 0.01 K/mm3 (0.00-0.00); Immature Granulocyte Percent A 0.2 % (0.0-0.0); Lymphocytes Absolute Auto 1.84 K/mm3 (1.10-4.50); Lymphocytes Percent Auto 34.5 % (18.0-42.0); Mean Corpuscular Volume 90.8 fL (78.0-102.0); Mean Platelet Volume 10.6 fl (9.2-11.8); Monocytes Absolute Auto 0.35 K/mm3 (0.10-0.90); Monocytes Percent Auto 6.6 % (2.0-11.0); Neutrophils Absolute Auto 2.88 K/mm3 (1.70-7.20); Neutrophils Percent Auto 53.9 % (50.0-70.0); Platelet Count Result 240 K/mm3 (150-420); Red Blood Count 4.44 M/mm3 (4.20-5.40); Red Cell Distribution Width 12.2 % (11.6-14.4); White Blood Count 5.3 K/mm3 (4.8-10.8)
[2024-09-18 08:33] LABS: Alanine Aminotransferase 30 U/L (14-59); Albumin Level 4.1 g/dL (3.4-5.0); Alkaline Phosphatase 86 U/L (46-116); Anion Gap 11 mmol/L (4-12); Aspartate Amino Transferase 16 U/L (15-37); Bilirubin,Total 0.8 mg/dL (0.00-1.00); Blood Urea Nitrogen 15 mg/dL (7-18); Calcium 9.5 mg/dL (8.5-10.1); Carbon Dioxide 29 mmol/L (21-32); Chloride 103 mmol/L (98-108); Cholesterol 174 mg/dL (0-200); Estimated Glomerular Filt Rate > 60; Glucose 88 mg/dL (70-99); HDL Direct 50 mg/dL (40-60); LDL Cholesterol Calculated 112 mg/dL (<130); Osmolality Calculated 295 mOsm/kg (285-295); Potassium 4.4 mmol/L (3.5-5.1); Sodium 143 mmol/L (136-145); Thyroid Stimulating Hormone 1.18 uIU/mL (0.36-3.74); Total Protein 7.2 g/dL (6.4-8.2); Triglycerides 59 mg/dL (0-150)
== END 2024-09-18 07:46 | disposition home or self-care (01) ==
LOC: CHSLAB 07:47
PROVIDERS: PCP Internal Medicine; Visit Provider Internal Medicine
DX: Z13.6 Encounter for screening for cardiovascular disorders (principal); R53.83 Other fatigue
CPT/HCPCS: 36415; 80053; 80061; 84439; 84443; 85025

== ENCOUNTER 2024-11-06 10:25 | Outpatient (CLI) | payer OTHER, SELFPAY ==
--- NOTE | ~2024-11-06 | XR_ITS ---
Clinical Indication: Cough PA and lateral views of the chest: Comparison: 04/17/2022 Findings: The lungs are clear, without evidence of focal consolidation or pleural effusion. Cardiome diastinal silhouette is within normal limits. Bones and soft tissues are unremarkable. Impression: Normal chest. Reviewed, dictated and finalized at location . Impression: Normal chest.
--- OUTSIDE RECORDS SUMMARY | 2024-11-06 11:35 | XMS_ITS | Clinical Summary ---
Author Organization [facility] Address [address] [place] [address] Care Team Providers Care Wheel Grinder Name Role Phone Kal Li MD Primary [...] change. Assessment & Plan (09/13/2022 8:49 AM DIRECTOR OF SCIENTIFIC RESEARCH): Continue small frequent meals. Continue to exercise [...] reassess Assessment & Plan (09/23/2021 9:55 AM DIRECTOR OF SCIENTIFIC RESEARCH): Given their past success the patient would [...] 03/14/2023 Assessment & Plan (06/14/2022 9:00 AM DIRECTOR OF SCIENTIFIC RESEARCH): Continue small frequent meals. Okay to return [...] been discussed and handout given. We will funeral pre arrangement counselor the patient to avoid for at [...] on file Legal Sex Female 7:38 PM DIRECTOR OF SCIENTIFIC RESEARCH Gender Identity Female 09/12/2022 7:43 PM DIRECTOR OF SCIENTIFIC RESEARCH Sexual Orientation Straight 09/12/2022 7: 43 PM DIRECTOR OF SCIENTIFIC RESEARCH Obstetrics History Last Filed Vital Signs Vital [...] patient's age to complete this topic Insurance [facility] Advance Directives For more information, please contact: [phone] * Full Code (Latest Code Status on File) Date Activated Date Inactivated Comments 05/04/2022 3:34 PM 05/06/2022 7:18 PM * Full Code Date Activated Date Inactivated Comments 02/08/2022 12:38 PM 02/08/2022 6:44 PM * Full Code Date Activated Date Inactivated Comments 02/08/2022 12:38 PM 02/08/2022 12:38 PM Care Teams Wheel Grinder Relationship Specialty Start Date End Date Kal Li MD [address] [facility] [address] [place] [address] PCP - General Internal Medicine 08/27/21
--- OUTSIDE RECORDS SUMMARY | 2024-11-06 11:35 | XMS_ITS | Clinical Summary ---
Author Organization [facility] Address [address] [place] [address] Care Team Providers Care Analytical Strategist Name Role Phone Unavailable Primary Care Provider [...] 2015 COVID-19 Vaccine (2023-2 5 season) 2024 HPV Vaccines Aged Out No longer eligi ble based on patient's age to complete this topic Meningococcal B Vaccine Aged Out No l onger eligible based on patient's age to complete this topic Meningococcal Vaccine Aged Out No joe geronimo eligible based on patient's age to complete this topic Pneumococcal Vaccine: Pediat rics (0 to 5 Years) and At-Risk Patients (6 to 49 Years) Aged Out No longer eligible b ased on patient's age to complete this topic RSV Immunizations Under 20 Months Aged Out No longer eligible based on patient's age to complete this topic
--- OUTSIDE RECORDS SUMMARY | 2024-11-06 11:35 | XMS_ITS | Encounter Summary ---
Author Organization [facility] Address [address] [place] [address] Care Team Providers Care Ware Dresser Name Role Phone Unavailable Primary Care Provider Unavailabl e Encounter Details Date Type Department Care Team (Late st Contact Info) Description 12/29/2018 Abstract SFL CONVERSION [address] [place] [address] , Generic Conversion, Social History Tobacco Use [...]
--- OUTSIDE RECORDS SUMMARY | 2024-11-06 11:35 | XMS_ITS | Data Portability ---
Author Organization [facility] NOAHKacy Cardona Address [address] [place] [address] Care Team Providers Care Hydrogeology Professor Name Role Phone BRITTNY ROSA Ice Cream Freezer Assistant JUAN MENCHACA Primary Care Provider Assessment No assessment recorded. Plan of Treatment Reminders Order Date Submit Date Provider Last Modified By Organization Details Last Modified Time Details Appointments None recorded. Lab test, urine 2016 017 [place] [id number] In-Office Order, Internal Use Only DO Not Attach Compendium DO Not Attach Compendium, Do Not Delete/merge, [address] 14:41:38 Referral None recorded. Procedures None recorded. Surgeries None recorded. Imaging None recorded. Medication Orders Nexplanon 68 mg subdermal implant [address] [facility] [place], [address], 7 14:41:38 Patient TargetsNo targets recorded. Patient InstructionsNo instructions recorded. Reason for Referral None Reported. Results Created Date Observation Date Name Description Value Unit Range Abnormal Flag Note LastModifiedBy Organization Detail LastModifiedTime 12/14/19 17 12/13/2016 pregn nuno test, urine HCG negati ve Not Available In-Office Order Internal Use Only DO Not Attach Compendium DO Not Attach Compendium, Do Not Delete/merge, [id number] 12/13/2016 14:14:20 Result Notes None recorded. Problems Name Problem SNOMED Code Status Onset Date Resolution Date Notes Provider Name and Address Organization Details Recorded Time Lower back injury 060666302 Active 017 Venus Lowery [facility] 12/12/2016 16:17:06 Problem Notes None recorded. Procedures Surgical History Date Name Laterality Status Provider Name and Address Organization Details Recorded Time 12/14/19 17 Control Implant Replacement completed Brittny Rosa [facility] 12/13/2016 14:38:14 Cholecystectomy completed Venus Lowery [facility] 12/12/2016 16:25:54 Imaging Results None recorded. Procedure Notes None recorded. Medical Equipment None Reported. Allergies No known drug allergies Medications Name Sig Start Date Stop Date Status Note LastModified by Organization Details LastModified Time [place] 7.5 mg-325 mg tablet Take by oral [...] Address Organization Details Last Updated DateTime 12/12/2016 852041.4 9 g 167.64 cm 39.6 kg/m2 118 mm[Hg] 90 mm[Hg] [facility] 7 16:15:25 Date Recorded Body height Body weight Body mass index (BMI) Systolic blood pressure Diastolic blood pressure Provider Name and Address Organization Details Last Updated DateTime 12/13/2016 167.64 cm 182691.6 g 39.8 kg/m2 120 mm[Hg] 86 mm[Hg] [facility] 7 14:04:33 Date Recorded Body height Body weight Body mass index (BMI) Systolic blood pressure Diastolic blood pressure Provider Name and Address Organization Details Last Updated DateTime 12/27/2016 167.64 cm 661745.9 3 g 39.6 kg/m2 116 mm[Hg] 84 mm[Hg] Venus Lowery [facility] 7 11:26:14 Social History Question Answer Notes LastModified by Organizat ion Details LastModified Time Tobacco Smoking Status [facility] 16:24:09 What Is Your Level Of [...] 2016 16:22:22 Maternal Grandfather Cerebrovascu lar accident [place] Not available 16:22:29 Father Malignant neoplasm of brain [place] Not available 2016 16:22:47 Father Hypercholest erolemia [place] Not available 2016 16:23:58 Paternal Grandmother Malignant tumor of ovary [place] Not available 2016 16:23:08 Paternal Grandmother Diabetes mellitus [place] Not available 2016 16:23:46 Maternal Grandmother Leukemia [place] Not available 11/22 16:23:21 Medical History Condition Response Other N High Blood Pressure N Breast Cancer N Thyroid Problems N Kidney or Bladder Problems N GI Problems Y Depression N Blood Clots N Lung Disease N Acne Y Breast Problem Y Eating Disorder N Anemia N Anesthesia Complications N Headaches/Migraines Y Anxiety Disorder N Diabetes N Ovarian Cancer N Muscle, Joint, or Bone Problems Y [...] SNOMED-CT Code Diagnosis ICD10 Code Diagnosis Note [id number] Brittny Rosa Ab (RELIEF MASTER) [address] [place] [address] 12/12/2016 15:54:42 12/16/2016 08:03:40 Contraception care management 350393417 Z30.9 Pt. is UTD with her pap smear. She sees an RELIEF MASTER who does not insert or remove the Nexplanon. Pt. to schedule Nexplanon replacemen t within the next 10 days. Will do UPT and Nexplanon replacemen t. [id number] Brittny Berger (RELIEF MASTER) [address] [place] [address] 12/13/2016 13:47:13 12/16/2016 08:09:02 Subcutaneous contraceptive implant palpable 880586418 Z30.49 Benefits, risks, and alternativ es to Nexplanon replacemen t d/w pt. Pt. expressed understand ing. All pt. questions answered. Consent signed and in chart. Current Nexplanon 12/10/16. UPT is negative today. Nexplanon replaced per protocol and without difficulty . Please see procedure note for details. Pt. tolerated the procedure well. RTO 2 weeks for follow-up. Removal of subcutaneous contraceptive done [id number] Z98.890 See above Insertion of subcutaneous contraceptive 518371294 Z30.9 See above. [id number] Brittny Chris Berger (RELIEF MASTER) [address] [place] [address] 12/27/2016 10:55:15 12/30/2016 12:13:36 Subcutaneous contraceptive implant palpable 539630045 Z30.[address] Expectatio ns discussed. Health Concerns Section Related Observation LastModified by Organization Detai ls LastModified Time None Recorded Concern Status LastModified by Organization Details LastModified Time None Recorded Advance Directives Directive None Recorded Payers Encounter Date Sequence Insurance Name Policy Number Policy Larkin Covered Member ID Larkin Member ID Guarantor Name 12/12/2016 1 [place] [facility] [id number] Kayleyneo Mondragon 12/13/2016 1 [place] [facility] PUBLIC AID Kayleyneo Mondragon [id number] Kayley Mondragon 12/27/2016 1 [place] [facility] Amaya [id number] Kayleyneo Mondragon Notes Date Note Type Note Provider Name and Address Organization Details Recorded Time 12/12/2016 text/html Pt. presents for consulation re Nexzplanon replacement. Her current Nexplanon 12/10/16. She likes it and wants another one. Brittny Chris león [place] - [facility] 12/13/2016 14:03:06 12/13/2016 text/html Pt. [...] Domestic Partner Domestic Partner Phone Father Name Needle Grinder Status 12/13/19 17 1 CLOSED Fetus Data First Name Last Name Admitted to NICU Weight (g) Sex Living Outcome Pediatric Complications Fetus ID Race Codes Race Delivery Type 3798.83 3 M Full Term [address]31 Vaginal Mohan Calculation Initial Mohan Date Initial [...] Domestic Partner Domestic Partner Phone Father Name Needle Grinder Status 12/13/19 17 1 CLOSED Fetus Data First Name Last Name Admitted to NICU Weight (g) Sex Living Outcome Pediatric Complications Fetus ID Race Codes Race Delivery Type 3742.13 4 M Full Term [address]13 Vaginal Mohan Calculation Initial Mohan Date Initial [...] Domestic Partner Domestic Partner Phone Father Name Needle Grinder Status 12/13/19 17 1 CLOSED Fetus Data First Name Last Name Admitted to NICU Weight (g) Sex Living Outcome Pediatric Complications Fetus ID Race Codes Race Delivery Type 3231.84 3 F Full Term [address]4576 Vaginal Mohan Calculation Initial Mohan Date Initial [...] Domestic Partner Domestic Partner Phone Father Name Needle Grinder Status 12/13/19 17 1 CLOSED Fetus Data First Name Last Name Admitted to NICU Weight (g) Sex Living Outcome Pediatric Complications Fetus ID Race Codes Race Delivery Type 3373.36 3704 M Full Term [address]45 Vaginal Mohan Calculation Initial Mohan Date Initial [...]
--- OUTSIDE RECORDS SUMMARY | 2024-11-06 11:35 | XMS_ITS | Data Portability ---
Author Organization [place] - [address], Main Office Address [address] [place] [address] Assessment Encounter Date Assessment Date Assessment LastModified by Organization Details LastModified Time 08/22/2023 08/22/2023 [email or web address] campos Not available 16:51:21 Plan of Treatment Reminders Order Date Submit Date Provider Last Modified By Organization Details Last Modified Time Details Appointments None recorded. Lab lipid panel, serum [address] (Lab), [address] [place] [address], [address], 5 11:26:43 CMP, serum or plasma 025 [facility] (Lab), [address] [place] [address], [address], 5 13:41:37 CBC w/ auto diff 025 [facility] (Lab), [address] [place] [address], [address], 5 11:30:22 TSH, serum or plasma [address] (Lab), [address] [place] [address], [address], 5 17:28:58 T4, free, serum [address] (Lab), [address] [place] [address], [address], 5 17:28:58 drug screen, urine 025 [facility], [address], [place], [address], 5 17:50:01 lipid panel, serum 024 [facility] (Lab), [address] [place] [address], [address], 4 13:27:56 CMP, serum or plasma 024 [facility] (Lab), [address] [place] [address], [place], [address], 4 13:28:06 TSH, serum or plasma 024 [facility] (Lab), [address] [place] [address], [address], 4 13:29:40 T4, free, serum 024 [facility] (Lab), [address] [place] [address], [place], [address], 4 13:29:55 vitamin B12, serum 024 024 [facility] (Lab), [address] [place] [address], [place], [address], 4 13:49:05 magnesium , blood [address] (Lab), [address] [place] [address], [place], [address], 4 16:33:55 CBC w/ auto diff 024 [facility] (Lab), [address] [place] [address], [address], 4 12:42:17 drug screen, urine 024 024 [facility], [address], [place], [address], 4 19:19:33 lipid panel, serum [address] (Lab), [address] [place] [address] [address], [place], [address], 3 14:07:09 CMP, serum or plasma 023 023 [facility] (Lab), [address] [place] [address] [address], [address], 3 12:50:01 CBC w/ auto diff [address] (Lab), [address] [place] [address], [address], 3 14:07:10 vitamin B12, serum 023 023 [facility] (Lab), [address] [place] [address], [address], 3 12:50:01 magnesium , blood [address] (Lab), [address] [place] [address], [address], 3 14:07:09 TSH, serum or plasma [address] (Lab), [address] [place] [address], [address], 3 14:07:10 T4, free, serum [address] (Lab), [address] [place] [address], [address], 3 14:07:10 Referral None recorded. Procedures None recorded. Surgeries None recorded. Imaging None recorded. Medication Orders None recorded. Patient TargetsNo targets recorded. Patient Instructions Encounter Date Encounter Id Patient Instructions Last Modified By Organization Details Last Modified Time 01/31/2023 [id number] Asthma -GERD-chronic pain syndrome-obesity class one. Clinically stable. Check blood work consisting of CBC, CMP, thyroid, B12 and magnesium level. Continue on current Rx follow-up and six months Not available 01/31/2023 15:04:07 07/28/2023 [id number] risk assessment* Not availabl e 07/28/2023 12:28:24 INFLUENZA VACCIN [...] smoker SEXUALLY ACTIVE GLUCOSE SCREENING LIPID SCREENING [email or web address] Not available 07/28/2023 12:06:28 Well patient evaluation risk assessment stable. Follow-up GERD-anxiety -chronic pain syndrome. Check blood work in the form of CBC, CMP, lipid, thyroid and urine drug screen. Continue on current medications. Follow-up in six months. Standard immunizations of RSV, COVID, influenza and shingles as recommended. Portions of the record may have been created with voice recognition software. Occasional wrong-word or s ound-a-like substitutions may have occurred due to the inherent limitations of voice recognition software. Read the chart carefully and recognize, using context, where substitutions have occurred. [email or web address] Not available 07/28/2023 12:27:33 08/22/2023 [id number] soaking instructions; to soak qd in warm, soapy water, and Silvadene for dressings. [email or web address] Not available 08/22/2023 16:53:18 02/22/2024 [id number] Follow-up GERD, depression, migraine headaches, chronic pain [...] with voice recognition software. Occasional wrong-word or s ound-a-like substitutions may have occurred due to the inherent limitations of voice recognition software. Read the chart carefully and recognize, using context, where substitutions have occurred. [email or web address] Not available 02/22/2024 14:44:25 09/17/2024 [id number] Follow-up migraine headaches, asthma, anxiety disorder and [...] with voice recognition software. Occasional wrong-word or s ound-a-like substitutions may have occurred due to the [...] e cut off 500 ng/mL Not Available [facility] (Lab) [address] [place], [address], 07/28/2023 19:19:33 07/28/1907/28/2023 URINE DRUG SCREE N barbiturates NEGATI VE Linda turat e cut off 200 ng/mL Not Available [facility] (Lab) [address] [place], [address], 07/28/2023 19:19:33 07/28/1907/28/2023 URINE DRUG SCREE N benzodiazepi álvaro NEGATI VE Benzo diaze pine cut off 200 ng/mL Not Available [facility] (Lab) [address] [place], [address], 07/28/2023 19:19:33 07/28/19 24 07/28/2023 URINE DRUG SCREE N cocaine NEGATI VE Cocai ne metab olite cut off 150 ng/mL Not Available [facility] (Lab) [address] [place], [address], 07/28/2023 19:19:33 07/28/19 24 07/28/2023 URINE DRUG SCREE N MDMA NEGATI VE MDMA cut off 500 ng/mL Not Available [facility] (Lab) [address] [place], [address], 07/28/2023 19:19:33 07/28/19 24 07/28/2023 URINE DRUG SCREE N methadone NEGATI VE Metha done cutof f 300 ng/mL . Not Available [facility] (Lab) [address] [place], [address], 07/28/2023 19:19:33 07/28/19 24 07/28/2023 URINE DRUG SCREE N opiates POSITI VE abnormal Opiat e cut off 300 ng/mL Not Available [facility] (Lab) [address] [place], [address], 07/28/2023 19:19:33 07/28/19 24 07/28/2023 URINE DRUG SCREE N oxycodone NEGATI VE Oxyco done cut off 100 ng/mL Not Available [facility] (Lab) [address] [place], [address], 07/28/2023 19:19:33 07/28/19 24 07/28/2023 URINE DRUG SCREE N phencyclidin e NEGATI VE PCP cut off 25 ng/mL Not Available [facility] (Lab) [address] [place], [address], 07/28/2023 19:19:33 07/28/19 24 07/28/2023 URINE DRUG SCREE N marijuana NEGATI VE abnormal Marij uana cut off 50 ng/mL ANY POSIT FABIANO RESUL TS REPOR MARLEN ARE UNCON FIRME D, AND SUCH, SHOUL D BE USED FOR MEDIC AL TREAT MENT PURPO SES ONLY. Not Available [facility] (Lab) [address] [place], [address], 07/28/2023 19:19:33 08/01/19 24 08/01/2023 CBC/C OMPLE TE BLD COUNT W/DIF F white blood cells 8.4 x10'3 /uL 4.2-10 .8 Not Available [facility] (Lab) [address] [place], [address], 08/01/2023 12:42:17 08/01/1908/01/2023 CBC/C OMPLE TE BLD COUNT W/DIF F red blood cells 4.58 x10'6 /uL 3.80-5 .20 Not Available [facility] (Lab) [address] [place], [address], 08/01/2023 12:42:17 08/01/19 24 08/01/2023 CBC/C OMPLE TE BLD COUNT W/DIF F hemoglobin 13.7 g/dL 12.0-1 5.6 Not Available [facility] (Lab) [address] [place], [address], 08/01/2023 12:42:17 08/01/19 24 08/01/2023 CBC/C OMPLE TE BLD COUNT W/DIF F hematocrit 42.1 % 35.7-4 5.7 Not Available [facility] (Lab) [address] [place], [address], 08/01/2023 12:42:17 08/01/1908/01/2023 CBC/C OMPLE TE BLD COUNT W/DIF F mean red cell volume 91.9 fL 82.0-9 9.0 Not Available [facility] (Lab) [address] [place], [address], 08/01/2023 12:42:17 08/01/19 24 08/01/2023 CBC/C OMPLE TE BLD COUNT W/DIF F mean red cell hemoglobin 29.9 pg 27.0-3 3.0 Not Available [facility] (Lab) [address] [place], [address], 08/01/2023 12:42:17 08/01/19 24 08/01/2023 CBC/C OMPLE TE BLD COUNT W/DIF F mean RBC HGB concentratio n 32.5 g/dL 31.0-3 6.0 Not Available [facility] (Lab) [address] [place], [address], 08/01/2023 12:42:17 08/01/19 24 08/01/2023 CBC/C OMPLE TE BLD COUNT W/DIF F red cell distribution width 12.1 % 11.8-1 5.5 Not Available [facility] (Lab) [address] [place], [address], 08/01/2023 12:42:17 08/01/19 24 08/01/2023 CBC/C OMPLE TE BLD COUNT W/DIF F platelets 215 x10'3 /uL 150-40 0 Not Available [facility] (Lab) [address] [place], [address], 08/01/2023 12:42:17 08/01/19 24 08/01/2023 CBC/C OMPLE TE BLD COUNT W/DIF F mean platelet volume 11.4 fL 9.0-12 .4 Not Available [facility] (Lab) [address] [place], [address], 08/01/2023 12:42:17 08/01/19 24 08/01/2023 CBC/C OMPLE TE BLD COUNT W/DIF F neutrophils 66.2 % 39.0-7 2.0 Not Available [facility] (Lab) [address] [place], [address], 08/01/2023 12:42:17 08/01/19 24 08/01/2023 CBC/C OMPLE TE BLD COUNT W/DIF F lymphocytes 26.3 % 16.0-4 7.0 Not Available [facility] (Lab) [address] [place], [address], 08/01/2023 12:42:17 08/01/19 24 08/01/2023 CBC/C OMPLE TE BLD COUNT W/DIF F monocytes 4.6 % 5.0-12 .0 low Not Available [facility] (Lab) [address] [place], [address], 08/01/2023 12:42:17 08/01/19 24 08/01/2023 CBC/C OMPLE TE BLD COUNT W/DIF F eosinophils 2.2 % 1.0-7. 0 Not Available [facility] (Lab) [address] [place], [address], 08/01/2023 12:42:17 08/01/19 24 08/01/2023 CBC/C OMPLE TE BLD COUNT W/DIF F basophils 0.5 % 0.0-2. 0 Not Available [facility] (Lab) [address] [place], [address], 08/01/2023 12:42:17 08/01/19 24 08/01/2023 CBC/C OMPLE TE BLD COUNT W/DIF F immature granulocytes 0.2 % 0.00-0 .50 Not Available [facility] (Lab) [address] [place], [address], 08/01/2023 12:42:17 08/01/19 24 08/01/2023 CBC/C OMPLE TE BLD COUNT W/DIF F neutrophils, absolute count 5.53 x10'3 /uL 1.5-8. 0 Not Available [facility] (Lab) [address] [place], [address], 08/01/2023 12:42:17 08/01/19 24 08/01/2023 CBC/C OMPLE TE BLD COUNT W/DIF F lymphocytes, absolute count 2.20 x10'3 /uL 1.07-3 .43 Not Available [facility] (Lab) [address] [place], [address], 08/01/2023 12:42:17 08/01/19 24 08/01/2023 CBC/C OMPLE TE BLD COUNT W/DIF F monocytes, absolute count 0.38 x10'3 /uL 0.29-0 .99 Not Available [facility] (Lab) [address] [place], [address], 08/01/2023 12:42:17 08/01/19 24 08/01/2023 CBC/C OMPLE TE BLD COUNT W/DIF F eosinophils, absolute count 0.18 x10'3 /uL 0.02-0 .53 Not Available [facility] (Lab) [address] [place], [address], 08/01/2023 12:42:17 08/01/19 24 08/01/2023 CBC/C OMPLE TE BLD COUNT W/DIF F basophils, absolute count 0.04 x10'3 /uL 0.01-0 .08 Not Available [facility] (Lab) [address] [place], [address], 08/01/2023 12:42:17 08/01/19 24 08/01/2023 CBC/C OMPLE TE BLD COUNT W/DIF F immature granulocytes ,absolute 0.02 x10'3 /uL 0.00-0 .05 Not Available [facility] (Lab) [address] [place], [address], 08/01/2023 12:42:17 08/01/19 24 08/01/2023 CBC/C OMPLE TE BLD COUNT W/DIF F nucleated red blood cells 0.0 % -0 Not Available [facility] (Lab) [address] [place], [address], 08/01/2023 12:42:17 08/01/19 24 08/01/2023 CBC/C OMPLE TE BLD COUNT W/DIF F NRBC# 0.00 x10'3 /uL Not Available [facility] (Lab) [address] [place], [address], 08/01/2023 12:42:17 08/01/19 24 08/01/2023 MAGNE SIUM magnesium 2.1 mg/dL 1.6-2. 3 Not Available [facility] (Lab) [address] [place], [address], 08/01/2023 13:27:55 08/01/19 24 08/01/2023 LIPID PANEL cholesterol 149 mg/dL 140-19 9 NIH RUSSELL NSUS RECOM MENDA TION FOR ROGELIO STERO L: ADULT CHILD LOW RISK: <200 <170 BORDE RLINE : <200- 239 ----- HIGH RISK: >240 >200 Not Available [facility] (Lab) [address] [place], [address], 08/01/2023 13:27:56 08/01/19 24 08/01/2023 LIPID PANEL triglyceride s 73 mg/dL 0-150 NIH RUSSELL NSUS REPOR T RECOM MENDA TION FOR TRIGL YCERI LASHAUN: ADULT CHILD LOW RISK: <150 ----- BODER LINE: 150-1 99 ----- HIGH RISK: >200 ----- Not Available [facility] (Lab) [address] [place], [address], 08/01/2023 13:27:56 08/01/19 24 08/01/2023 LIPID PANEL HDL cholesterol 34 mg/dL 40- low Not Available [facility] (Lab) [address] [place], [address], 08/01/2023 13:27:56 08/01/19 24 08/01/2023 LIPID PANEL [...] WILL NOT BE REPOR MARLEN. Not Available [facility] (Lab) [address] [place], [address], 08/01/2023 13:27:56 08/01/19 24 08/01/2023 COMPR EHENS FABIANO METAB OLIC PANEL sodium 139 mmol/ L 137-14 5 Not Available [facility] (Lab) [address] [place], [address], 08/01/2023 13:28:06 08/01/19 24 08/01/2023 COMPR EHENS FABIANO METAB OLIC PANEL potassium 4.5 mmol/ L 3.5-5. 1 Not Available [facility] (Lab) [address] [place], [address], 08/01/2023 13:28:06 08/01/19 24 08/01/2023 COMPR EHENS FABIANO METAB OLIC PANEL chloride 104 mmol/ L 98-107 Not Available [facility] (Lab) [address] [place], [address], 08/01/2023 13:28:06 08/01/19 24 08/01/2023 COMPR EHENS FABIANO METAB OLIC PANEL carbon dioxide 27 mmol/ L 22-30 Not Available [facility] (Lab) [address] [place], [address], 08/01/2023 13:28:06 08/01/19 24 08/01/2023 COMPR EHENS FABIANO METAB OLIC PANEL anion gap 12.5 mmol/ L 14-22 low Not Available [facility] (Lab) [address] [place], [address], 08/01/2023 13:28:08/01/19 24 08/01/2023 COMPR EHENS FABIANO METAB OLIC PANEL glucose 89 mg/dL 70-99 Not Available [facility] (Lab) [address] [place], [address], 08/01/2023 13:28:06 08/01/19 24 08/01/2023 COMPR EHENS FABIANO METAB OLIC PANEL BUN 20 mg/dL 8-19 high Not Available [facility] (Lab) [address] [place], [address], 08/01/2023 13:28:08/01/19 24 08/01/2023 COMPR EHENS FABIANO METAB OLIC PANEL creatinine 0.57 mg/dL 0.66-1 .25 low Not Available [facility] (Lab) [address] [place], [address], 08/01/2023 13:28:08/01/19 24 08/01/2023 COMPR EHENS FABIANO METAB OLIC PANEL GFR >60 Refer ence Range : Mcgehee ge GFR Healt hy Adult : >60 [...] calcu lator is avail able on the [facility] websi te: https ://ww w.kid paul.o rg/pr ofess ional s/kdo qi/gf r_cal culat or Not Available [facility] (Lab) [address] [place], [address], 08/01/2023 13:28:08/01/19 24 08/01/2023 COMPR EHENS FABIANO METAB OLIC PANEL alkaline phosphatase 80 U/L 38-[address] [facility] (Lab) [address] [place], [address], 08/01/2023 13:28:08/01/19 24 08/01/2023 COMPR EHENS FABIANO METAB OLIC PANEL alanine aminotransfe rase 15 U/L 0-35 Not Available [facility] (Lab) [address] [place], [address], 08/01/2023 13:28:08/01/19 24 08/01/2023 COMPR EHENS FABIANO METAB OLIC PANEL aspartate aminotransfe rase 19 U/L 15-37 Not Available [facility] (Lab) [address] [place], [address], 08/01/2023 13:28:08/01/19 24 08/01/2023 COMPR EHENS FABIANO METAB OLIC PANEL bilirubin, total 1.00 mg/dL 0.20-1 .30 Not Available [facility] (Lab) [address] [place], [address], 08/01/2023 13:28:08/01/19 24 08/01/2023 COMPR EHENS FABIANO METAB OLIC PANEL calcium 9.8 mg/dL 8.4-10 .2 Not Available [facility] (Lab) [address] [place], [address], 08/01/2023 13:28:06 08/01/19 24 08/01/2023 COMPR EHENS FABIANO METAB OLIC PANEL total protein 7.0 g/dL 6.3-8. 2 Not Available [facility] (Lab) [address] [place], [address], 08/01/2023 13:28:06 08/01/19 24 08/01/2023 COMPR EHENS FABIANO METAB OLIC PANEL albumin 4.3 g/dL 3.4-5. 0 Not Available [facility] (Lab) [address] [place], [address], 08/01/2023 13:28:08/01/19 24 08/01/2023 COMPR EHENS FABIANO METAB OLIC PANEL globulin 2.7 g/dL 2.6-4. 2 Not Available [facility] (Lab) [address] [place], [address], 08/01/2023 13:28:06 08/01/19 24 08/01/2023 COMPR EHENS FABIANO METAB OLIC PANEL A/G ratio 1.6 ratio 1.0-2. 0 Not Available [facility] (Lab) [address] [place], [address], 08/01/2023 13:28:06 08/01/19 24 08/01/2023 TSH thyroid-stim ulating hormone 1.150 uIU/m L 0.465- 4.680 Not Available [facility] (Lab) [address] [place], [address], 08/01/2023 13:29:40 08/01/19 24 08/01/2023 T4 FREE free T4 0.99 NG/dL 0.78-2 .19 Not Available [facility] (Lab) [address] [place], [address], 08/01/2023 13:29:55 08/01/19 24 08/01/2023 VITAM IN B12 (TOBIAS ISSA ) vb12 854 pg/mL 239-93 1 Not Available [facility] (Lab) [address] [place], [address], 08/01/2023 13:49:05 Result Notes None recorded. Problems Name Problem SNOMED Code Status Onset Date Resolution Date Notes Provider Name and Address Organization Details Recorded Time Renewal of prescripti on Active 2021 Not Available [facility] 3 13:52:57 Paronychia of toe of left foot 8581598155589 9100 Active 2019 Not Available [facility] 3 13:52:57 Irritable bowel syndrome 74344617 Active Not Available [facility] 3 13:52:57 Plantar fascial fibromatos is 93854226 Active Not Available [facility] 3 13:52:57 Acute sinusitis 43032937 Active 2021 Not Available [facility] 3 13:52:57 Asthma 900227728 Active Not Available [facility] 3 13:52:57 Anxiety disorder 930088329 Active 2016 Not Available [facility] 3 13:52:57 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 648459281 Active 2021 Not Available [facility] 3 13:52:57 Lumbar sprain 848293213 Active Not Available [facility] 3 13:52:57 Gastroesop hageal reflux disease 424855940 Active Not Available [facility] 3 13:52:57 Morbid obesity 019066311 Active 2021 Not Available [facility] 3 13:52:57 Finding of body mass index 901700603 Active 2021 Not Available [facility] 3 13:52:57 Depressive disorder 28965731 Active Not Available [facility] 3 13:52:57 Multiple joint pain 43031585 Active 2017 Not Available [facility] 3 13:52:57 Chronic pain syndrome 320282948 Active 2017 Not Available [facility] 3 13:52:58 Migraine 98252174 Active Not Available [facility] 3 13:52:58 Ingrowing toenail 875504691 Active 2019 Not Available [facility] 3 13:52:58 Acute urinary tract infection 390984768 Active 2021 Not Available [facility] 3 13:52:58 Herpes zoster 1160723 Active 2022 Not Available [facility] 3 13:52:58 Stomatitis 58909730 Active 2021 Not Available [facility] 3 13:52:58 Otitis media 89467261 Active 2021 Not Available [facility] 3 13:52:58 Secondary restless legs syndrome 307955336 Active 2022 Not Available [facility] 3 13:52:58 Candidiasi s of mouth 97706744 Active 2021 Not Available [facility] 3 13:52:58 Recurrent aphthous stomatitis 274113622 Active 2022 Juan Li MD [address], [place], [address] , [employer] [facility] [employer] [employer] 3 11:00:29 Obese class I 7246217910083 07 Active 2022 Juan Li MD [address], [address], [place], [address] , [employer] [facility] [employer] [facility] 3 14:59:34 Cellulitis of toe of right foot 4378389916332 9106 Active 2022 Juan Li MD [address], [address], [place], [address] , [facility] [employer] [facility] 3 11:58:39 Cellulitis of foot 871092499 Active 2022 Juan Li MD [address], [address], [place], [address] , [place] [facility] 3 12:48:24 Allergic rhinitis 74192346 Active 2022 Juan Li MD [address], [address], [place], [address] , [place] [facility] 3 15:11:15 Eczema 39850451 Active 2023 Juan Li MD [address], [address], [place], [address] , [place] [facility] 4 15:39:28 Pain in right foot 5362207404903 07 Active 2023 Sanju Lan DPM [address], [address], [place], [address] , [place] [facility] 4 16:51:25 Pain in left foot 9329083444848 07 Active 2023 Sanju Lan DPM [address], [address], [place], [address] , [place] [facility] 4 16:51:42 Paronychia of toe of right foot 1218247216160 9102 Active 2023 Sanju Lan DPM [address], [address], [place], [address] , [place] [facility] 4 16:51:54 Acute pharyngiti s 468694269 Active 2023 Juan Li MD [address], [address], [place], [address] , [place] [facility] 4 11:49:36 Fever 454395929 Active 2024 Rachel Ryan CMA [facility], [place] [facility] 5 11:08:28 Fatigue 42265959 Active 2024 Juan Li MD [address], [address], [place], [address] , [place] [facility] 5 11:25:45 Cough 52784322 Active 2024 Rachel Ryna CMA null, [place] [facility] [employer] 5 10:50:25 Problem Notes None recorded. Medical Equipment None Reported. Allergies Allergen ID Allergen Name Allergen Category Reaction Reaction Severity Criticality Documentation Date Start Date Code Code System Note Provider Name and Address Organization Details Recorded Time 73359 Buspar medicatio n other mild Not available 09/21/2022 41997 0 RxNorm cause d heart to flutt er Not Available [facility] 3 13:54:43 Medications Name Sig Start Date [...] ne 5 mg-acetam inophen 325 mg tablet take one tablet four times a day for DX: M54.16 2024 active Not Available Not Available Not Avai lable ondansetr on HCl 8 mg tablet active [...] hours by oral route. 03/02 completed ALANNA WRIGHT [address] [facility] [address] 06/04/19 85 8 HYDROCOD ONE BITARTRA TE-ACETA MINOPHE 7.5MG-32 5MG 120/30 Medicaid [employer] [address] [facility] [address] 06/04/19 85 8 HYDROCOD ONE BITARTRA TE-ACETA MINOPHE 7.5MG-32 5MG 120/ 30 Medicaid [employer] JORGEFIE LD LI, JUAN VICTORINA MD ALANNA ADRIANA [address] [place] [address] 06/04/19 85 8 HYDROCOD ONE BITARTRA TE-ACETA MINOPHE 7.5MG-32 5MG 120/30 Medicaid [employer] [place] JUAN LAN MD ALANNA ADRIANA [address] [place] [address] 06/04/19 85 09/27/2017 HYDROCOD ONE BITARTRA TE-ACETA MINOPHE 7.5MG-32 5MG 120/30 Medicaid [employer] [place] JUAN LAN MD ALANNA ADRIANA [address] [place] [address] 06/04/19 85 08/27/2017 HYDROCOD ONE BITARTRA TE-ACETA MINOPHE 7.5MG-32 5MG 120/30 Insuranc e [employer] [place] JUAN LAN MD ALANNA ADRIANA [address] [place] [address] 06/04/19 85 07/27/2017 LORAZEPA M 1MG 90/30 Insuranc e [employer] [place] JUAN LAN MD ALANNA ADRIANA [address] [place] [address] 06/04/19 85 07/26/2017 HYDROCOD ONE BITARTRA TE-ACETA MINOPHE 7.5MG-32 5MG 120/30 Insuranc e [employer] [place] JUAN LAN MD ALANNA ADRIANA [address] [place] [address] 06/04/19 85 7 HYDROCOD ONE BITARTRA TE-ACETA MINOPHE 7.5MG-32 5MG 120/30 Insuranc e [employer] [place] JUAN LAN MD ALANNA ADRIANA [address] [place] [address] 06/04/19 85 7 LORAZEPA M 1MG 90/30 Insuranc e [employer] [place] JUAN LAN MD ALANNA ADRIANA [address] [place] [address] 06/04/19 85 7 HYDROCOD ONE BITARTRA TE-ACETA MINOPHE 7.5MG-32 5MG 69457/03 0 Medicaid [employer]/ JUAN DEY Not Available Not Available Not [...] 1 CAPSULE BY MOUTH THREE TIMES DAILY 2024 active Not Available Not Available Not Avai lable lidocaine HCl 2 % mucosal solution TAKE [...] mg-potass ium clavulana te 125 mg tablet Take 1 tablet every 12 hours by oral route. 2024 active Not Available Not Available Not Avai lable oxycodone 5 mg tablet TAKE 1 TABLET [...] Take by oral route for 30 days. 08/12 /2024 completed Not Available Not Available Not Available [...] Updated DateTime 3 166.37 cm 32 kg/m2 31553.5 1 g 78 /min 97 [degF] 97 % 97 % 110 mm[Hg] 62 mm[Hg] Ernestine Medrano [place] [employer] [facility] [employer] Story 3 14:45:01 Date Recorded Body height Body mass index (BMI) Body weight Body temperature Heart rate Oxygen saturation Oxygen saturation in Arterial blood by Pulse oximetry Systolic blood pressure Diastolic blood pressure Provider Name and Address Organization Details Last Updated DateTime 4 166.37 cm 30.5 kg/m2 48720.1 8 g 97.8 [degF] 87 /min 98 % 98 % 112 mm[Hg] 64 mm[Hg] Camelia Schneider MA [employer] [facility] 8[employer] Story 4 12:02:52 Date Recorded Body height Heart rate Oxygen saturation Oxygen saturation in Arterial blood by Pulse oximetry Body temperature Body mass index (BMI) Body weight Systolic blood pressure Diastolic blood pressure Provider Name and Address Organization Details Last Updated DateTime 4 166.37 cm 90 /min 98 % 98 % 97.6 [degF] 30.3 kg/m2 83432.5 9 g 138 mm[Hg] 60 mm[Hg] Wes Becker Francheska [facility] [employer] [facility] 4 14:11:10 Date Recorded Body height Body mass index (BMI) Body weight Heart rate Body temperature Oxygen saturation Oxygen saturation in Arterial blood by Pulse oximetry Systolic blood pressure Diastolic blood pressure Provider Name and Address Organization Details Last Updated DateTime 4 166.37 cm 30.6 kg/m2 07533.7 7 g 73 /min 97.8 [degF] 95 % 95 % 120 mm[Hg] 80 mm[Hg] Veena Henning Francheska [facility] [employer] [facility] 4 14:25:17 Date Recorded Body height Body mass index (BMI) Body weight Heart rate Body temperature Oxygen saturation Oxygen saturation in Arterial blood by Pulse oximetry Systolic blood pressure Diastolic blood pressure Provider Name and Address Organization Details Last Updated DateTime 5 166.37 cm 28.7 kg/m2 53833.6 6 g 63 /min 97 [degF] 97 % 97 % 118 mm[Hg] 60 mm[Hg] Ernestine Medrano [facility] [address] 5 11:04:11 Social History Question Answer Notes LastModified by Organizat ion Details LastModified Time Tobacco Smoking Status Never Smoker [facility] [employer] [facility] 08/22/2023 14:12:25 What Is Your Level Of Alcohol Consumption? None [email or web address] Information not available 08/22/2023 If You Are , What Was Your Level Of Alcohol Consumption Prior To ? None [email or web address] Information not available 08/22/2023 What Is Your Level Of Caffeine Consumption? Occasional [email or web address] Information not available 08/22/2023 In The 14 Days Before Symptom Onset, Have You Had Close Contact With A Laboratory-confirm ed COVID-19 While That Case Was Ill? No [id number] Information not available 09/21/2022 In The 14 Days Before Symptom Onset, Have You Had Close Contact With A Person Who Is Under Investigation For COVID-19 While That Person Was Ill? No [id number] Information not available 09/21/2022 What Was The Date Of Your Most Recent Tobacco Screening? 08/22/2023 [email or web address] Information not available 08/22/2023 Do You Use Any Illicit Or Recreational Drugs? No [email or web address] Information not available 08/22/2023 Have You Recently Traveled Abroad? No [id number] Information not available 09/21/2022 Sex: Unknown Functional Status None recorded. Mental Status None recorded. Family History Nothing Reported Notes:Mother living [address] [facility] tial hypertension and sleep apnea s/p bariatric [...] HAVE YOU BEEN HOSPITALIZED OR SEEN IN [facility] IN THE PAST YEAR ? N ATHEROSCLEROSIS [...] formulation 3 completed Rachel Ryan CMA null, [facility] [employer] 08/21/2023 09:51:56 influenza, unspecified formulation 4 completed KARTIK Bautista null, [place] [employer] [facility] [employer] [facility] 05/29/2024 14:33:00 COVID-19 Non-US Vaccine, Product Unknown 1 completed Not Available [facility] 09/21/2022 13:54:40 Influenza, adjuvanted, trivalent, PF 2 completed Not Available [facility] 09/21/2022 13:54:40 Influenza, split virus, quadrivalent, preservative 9 completed Not Available [facility] 09/21/2022 13:54:41 Influenza, split virus, quadrivalent, PF 8 completed Not Available [facility] 09/21/2022 13:54:41 Influenza, split virus, quadrivalent, preservative 7 completed Not Available [facility] 09/21/2022 13:54:41 Influenza, split virus, quadrivalent, PF 1 completed Not Available [facility] 09/21/2022 13:54:41 Influenza, split virus, quadrivalent, PF 6 completed Not Available [facility] 09/21/2022 13:54:41 Influenza, split virus, quadrivalent, preservative 5 completed Not Available [facility] 09/21/2022 13:54:41 Influenza, split virus, trivalent, preservative 4 completed Not Available [facility] 09/21/2022 13:54:41 Past Encounters Encounter ID Performer Location Encounter Start Date Encounter Closed Date Diagnosis/Indication Diagnosis SNOMED-CT Code Diagnosis ICD10 Code Diagnosis Note [id number] [facility] Internal Med Dennis norman [address] , [place] [address] 01/29/2021 00:00:00 01/29/2021 15:17:30 [id number] [facility] Internal Med [place] [address] [place] [address] y , [place] [address] 05/28/2021 00:00:00 05/28/2021 14:40:17 [id number] [facility] Internal Med [place] [address] [place] [address] y , [place] [address] 08/24/2021 00:00:00 08/24/2021 14:58:43 [id number] [facility] Internal Med [place] [address] [place] [address] y , [place] [address] 12/28/2021 00:00:00 12/28/2021 14:47:18 [id number] [facility] Internal Med [place] [address] [place] [address] y , [place] [address] 04/26/2022 00:00:00 04/26/2022 14:58:38 [id number] [facility] Internal Med [place] [address] [place] [address] y , [place] [address] 09/02/2022 00:00:00 09/02/2022 14:53:31 [id number] Juan Li MD [facility] Internal Med [place] [address] [place] [address] y , [place] [address] 01/31/2023 14:23:18 01/31/2023 15:14:44 Chronic pain syndrome 678717129 G89.4 Gastroesop hageal reflux disease 461397236 K21.9 Asthma 757606116 J45.90 9 Obese class I 5799624206 84589 E66.9 Screening for cardiovascular system disease 918228210 Z13.6 [id number] Juan Li MD [facility] Internal Med [place] [address] [place] [address] y , [place] [address] 07/28/2023 11:26:37 07/28/2023 12:38:44 Adult health examination 879572788 Z00.00 Depression screening 171 989847 Z13.31 Chronic pain syndrome 37 1864216 G89.4 Gastroesop hageal reflux disease 687439497 K21.9 Anxiety disorder 7174175 06 F41.9 Long-term current use of opiate analgesic drug 8989955498 50474 Z79.891 Screening for cardiovascular system disease 776221278 Z13.6 [id number] Sanju Lan DPM [facility] Podiat[place] [address] [address] 08/22/2023 13:47:15 02/23/2024 11:20:56 Pain in right foot 4459928717 80221 M79.671 local anesthesia , P and A, w/ sharp matrixecto my (curretage and grinding) Pain in left foot 470798 2443 38365 M79.672 same as above, hallux Lt Paronychia of toe of left foot 0437376894 0449103 L03.032 Paronychia of toe of right foot 8641837305 7764350 L03.723 [id number] Juan Li MD [facility] Internal Med [facility] [address] [place] [address] , [place] [address] 02/22/2024 14:13:55 02/22/2024 14:57:53 Chronic pain syndrome 904129156 G89.4 Gastroesop hageal reflux disease 627641449 K21.9 Obese class I 2249937861 29795 E66.9 Depressive disorder 3548 9007 F32.A Migraine 88460499 G43.90 9 [id number] Juan Li MD [facility] [address] [facility] [address] [place] [address] 09/17/2024 10:40:51 09/17/2024 11:43:34 Chronic pain syndrome 294293068 G89.4 Anxiety disorder 0991575 06 F41.9 Migraine 97098003 G43.90 9 Asthma 802908891 J45.90 9 Long-term current use of opiate analgesic drug 3507979210 31850 Z79.891 Screening for cardiovascular system disease 242273783 Z13.6 [facility] 64433087 R53.83 Health Concerns Section Related Observation LastModified by Organization Detai ls LastModified Time None Recorded Concern Status LastModified by Organization Details LastModified Time None Recorded Advance Directives Directive None Recorded Payers Encounter Date Sequence Insurance Name Policy Number Policy Larkin Covered Member ID Larkin Member ID Guarantor Name 01/31/2023 1 [facility] (MEDICAID HMO) [id number] Adriana Guevara Alanna [id number] Adriana Guevara [place] 07/28/2023 1 [facility] (MEDICAID HMO) [id number] 0003 Adriana Guevara Alanna [id number] Adriana M [place] 08/22/2023 1 [facility] (MEDICAID HMO) [id number] 0003 Adriana M Alanna [id number] Adriana Paola Alanna 02/22/2024 1 [facility] (MEDICAID HMO) [id number] 0003 Adriana M [place] [id number] Adriana M Alanna 09/17/2024 1 [facility] (MEDICAID HMO) [id number] 0003 Adriana Alanna [id number] Adriana [place] Notes Date Note Type Note Provider Name [...] or has seen in the past a Soldering Machine Setter: 5Pain - Enjoyment of Life - General [...] and have advised against this.Need to Query FOUNDATION RELATIONS DIRECTOR! Last Query: 09/15/2022Need Drug Screen! Last: [...] offered to be evaluated and instructed by oracle ascp consultant on weight loss diet. Wishes to be evaluated by Dietary: [Dietary Consult?*, Yes, No and was offered to be evaluated and instructed by oracle ascp consultant on weight loss diet].Medication List Reviewed and [...] TidADRs List Reviewed 01/31/2023uspar Heart FlutterVaccination and Sehmmnsizhzc6095-04 Exmsrlwio4662-58 Covid PfizerSurgical HistoryGastric Sleve, Lap CholecystectomyPreventative Testing Confirmed by Our Orwkkcl8308/31/2021 ALBUMIN 4.1 G/DLSocial HistoryDoes not smoke or drinkWorks at UPSFamily HistoryMother living 62 essential hypertension and sleep apnea s/p bariatric surgery and hx of atrial fibrillationFather 54 essential hypertension and Glioblastoma multiformeOne brother living and in good healthMenarche 12 Menopause A0 Juan Li MD [address] [facility], [place], [address], [facility] [address] 01/31/2023 15:04:29 07/28/19 24 text/htm l Patient Name: Adriana Stokes Of Service: Monday ( 07.28.2023 ): 1985 [...] or has seen in the past a Soldering Machine Setter: No .Pain - Enjoyment of Life - General Activity ScalePain on Average: 4Enjoyment of Live: 5General Activity: 4Enjoyment of Life - General Activity Scale: 4Currently regimen consists of Neurontin, [place] and Zanaflex as prescribed with no evidence [...] TidADRs List Reviewed 4Buspar Heart FlutterVaccination and Gampslrxnjco4788-56 Bhhlvutix4669-31 Covid PfizerSurgical HistoryGastric Sleve, Lap CholecystectomyPreventative Testing Confirmed by Our Xqzzxtj7708/31/2021 ALBUMIN 4.1 G/DL NSocial HistoryDoes not smoke or drinkWorks at UPSFamily HistoryMother living 62 essential hypertension and sleep apnea s/p bariatric surgery and hx of atrial fibrillationFather 54 essential hypertension and Glioblastoma multiformeOne brother living and in good healthMenarche 12 Menopause A0 Juan Li MD [address] [facility], [address], [place], [address], [employer] 07/28/2023 12:28:32 08/22/19 24 text/htm l Pt has had ingrown nails, torres great toenails. Pt has had procedures performed several times, but the nails have regrown and the infections have recurred. Seeks definitive tx this date. Sanju Lan DPM [address] [facility], [place], [address], [employer] 08/22/2023 16:53:23 02/22/20 24 text/htm l Patient [...] or has seen in the past a Soldering Machine Setter: No .Pain - Enjoyment of Life - General Activity ScalePain on Average: 5Enjoyment of Live: 4General Activity: 5Enjoyment of Life - General Activity Scale: 5Currently regimen consists of Mobic, Neurontin, [place] and Zanaflex as prescribed with no evidence [...] offered to be evaluated and instructed by oracle ascp consultant on weight loss diet. Active Medication ListMobic [...] Drug Reactions ReviewedBuspar Heart Flutter Vaccination and Cdlsdehrbouw8229-37 Lcoxxvmnp2900-91 Covid [facility] Obswsmn0845-89 Gastric Bxorr1450-47 Lap Cholecystectomy Preventative Sppvyjp6408/01/2023 ALBUMIN 4.3 G/DL Social HistoryDoes not smoke or drinkWorks at [employer] Family HistoryMother living 62 essential hypertension and sleep apnea s/p bariatric surgery and hx of atrial fibrillationFather 54 essential hypertension and Glioblastoma multiformeOne brother living and in good healthMenarche 12 Menopause A0 Juan Li MD [address] [facility], [facility] [address], [place], [address], [facility] [address] 02/22/2024 14:45:07 09/17/19 text/htm l Patient Name: Adriana Stokes Of [...] or has seen in the past a Soldering Machine Setter: 4 .Pain - Enjoyment of Life - [...] and Immunization( ) 2024-05 INFLUENZA(X) 2021-02 COVID Simple-Fill Surgical Mxqihtk3904-49 Gastric Hzfmk4025-77 Lap Cholecystectomy Preventative Testing( ) 08/01/2023 Albumin 4.3 G/DL Social HistoryDoes not smoke or drinkWorks at [facility] Family HistoryMother living 62 essential hypertension [...] Vaccination and Immunization( ) 2024-05 INFLUENZA(X) 2021-02 [employer] Surgical Dfqqiix7982-27 Gastric Fikfj8983-67 Lap Cholecystectomy Preventative Testing( ) 08/01/2023 Albumin 4.3 G/DL Social HistoryDoes not smoke or drinkWorks at [facility] Family HistoryMother living 62 essential hypertension and sleep apnea s/p bariatric surgery and hx of atrial fibrillationFather 54 essential hypertension and Glioblastoma multiformeOne brother living and in good healthMenarche 12 Menopause A0 Juan Li MD [address] [facility], [facility] [address], [place], [address], [place] [facility] [place] [facility] 09/17/2024 11:26:23 OBGyn Episode No OBEpisode recorded.
--- OUTSIDE RECORDS SUMMARY | 2024-11-06 11:35 | XMS_ITS | Referral Summary ---
Author Organization [facility] Address [address] [place] [address] Care Team Providers Care Bell Cleaner Name Role Phone Kal Li MD Primary [...] change. Assessment & Plan (09/13/2022 8:49 AM STAMP ANALYST): Continue small frequent meals. Continue to exercise [...] reassess Assessment & Plan (09/23/2021 9:55 AM STAMP ANALYST): Given their past success the patient would [...] 03/14/2023 Assessment & Plan (06/14/2022 9:00 AM STAMP ANALYST): Continue small frequent meals. Okay to return [...] been discussed and handout given. We will extension course counselor the patient to avoid for at [...] on file Legal Sex Female 7:38 PM STAMP ANALYST Gender Identity Female 09/12/2022 7:43 PM STAMP ANALYST Sexual Orientation Straight 09/12/2022 7: 43 PM STAMP ANALYST Last Filed Vital Signs Vital Sign Reading [...] Plan of Treatment Not on file Insurance [facility] Advance Directives For more information, please contact: [phone] * Full Code (Latest Code Status on File) Date Activated Date Inactivated Comments 05/04/2022 3:34 PM 05/06/2022 7:18 PM * Full Code Date Activated Date Inactivated Comments 02/08/2022 12:38 PM 02/08/2022 6:44 PM * Full Code Date Activated Date Inactivated Comments 02/08/2022 12:38 PM 02/08/2022 12:38 PM Care Teams Bell Cleaner Relationship Specialty Start Date End Date Kal Li MD [address] [address] PCP - General Internal Medicine 08/27/21
== END 2024-11-06 10:26 | disposition home or self-care (01) ==
PROVIDERS: PCP Internal Medicine; Visit Provider Internal Medicine
DX: R05.9 Cough, unspecified (principal)
CPT/HCPCS: 71046

== ENCOUNTER 2024-12-17 15:00 | Emergency (ER) | payer OTHER, SELFPAY ==
--- OUTSIDE RECORDS SUMMARY | 2024-12-17 15:06 | XMS_ITS | Clinical Summary ---
Author Organization [facility] Address [address] [place] [address] Care Team Providers Care Site Acquisition Manager Name Role Phone Kal Li MD Primary [...] change. Assessment & Plan (09/13/2022 8:49 AM LAB SYSTEMS ANALYST): Continue small frequent meals. Continue to [...] reassess Assessment & Plan (09/23/2021 9:55 AM LAB SYSTEMS ANALYST): Given their past success the patient [...] 03/14/2023 Assessment & Plan (06/14/2022 9:00 AM LAB SYSTEMS ANALYST): Continue small frequent meals. Okay to [...] been discussed and handout given. We will auto club travel counselor the patient to avoid for at [...] on file Legal Sex Female 7:38 PM LAB SYSTEMS ANALYST Gender Identity Female 09/12/2022 7:43 PM LAB SYSTEMS ANALYST Sexual Orientation Straight 09/12/2022 7: 43 PM LAB SYSTEMS ANALYST Obstetrics History Last Filed Vital Signs Vital [...] 8:24 AM CDT Height 167.6 cm (5' 6) 03/14/2024 8:24 AM CDT Body Mass Index [...] (2 - season) 2024 02/24/2021 Influenza Vaccine (Season Ended) 2025 05/31/2023, 05/18/2022, 05/28/2021, Additional history exists HPV Vaccines Aged Out No longer eligi ble based on patient's age to complete this topic Insurance [facility] Advance Directives For more information, please contact: [phone] * Full Code (Latest Code Status on File) Date Activated Date Inactivated Comments 05/04/2022 3:34 PM 05/06/2022 7:18 PM * Full Code Date Activated Date Inactivated Comments 02/08/2022 12:38 PM 02/08/2022 6:44 PM * Full Code Date Activated Date Inactivated Comments 02/08/2022 12:38 PM 02/08/2022 12:38 PM Care Teams Site Acquisition Manager Relationship Specialty Start Date End Date Kal Li MD [address] [facility] [address] [place] [address] PCP - General Internal Medicine 08/27/21
--- OUTSIDE RECORDS SUMMARY | 2024-12-17 15:06 | XMS_ITS | Data Portability ---
Author Organization [facility] NOAHKacy Cardona Address [address] [place] [address] Care Team Providers Care Trailer Chief Name Role Phone BRITTNY ROSA Curator JUAN MENCHACA Primary Care Provider Assessment No assessment recorded. Plan of Treatment Reminders Order Date Submit Date Provider Last Modified By Organization Details Last Modified Time Details Appointments None recorded. Lab test, urine 2016 017 [place] [address] In-Office Order, Internal Use Only DO Not Attach Compendium DO Not Attach Compendium, Do Not Delete/merge, [id number] 14:41:38 Referral None recorded. Procedures None recorded. Surgeries None recorded. Imaging None recorded. Medication Orders Nexplanon 68 mg subdermal implant [address] [facility] [place], [address], 7 14:41:38 Patient TargetsNo targets recorded. Patient InstructionsNo instructions recorded. Reason for Referral None Reported. Results Created Date Observation Date Name Description Value Unit Range Abnormal Flag Note LastModifiedBy Organization Detail LastModifiedTime 12/14/19 17 12/13/2016 pregn nuno test, urine HCG negati ve Not Available In-Office Order Internal Use Only DO Not Attach Compendium DO Not Attach Compendium, Do Not Delete/merge, [id number] 12/13/2016 14:14:20 Result Notes None recorded. Problems Name Problem SNOMED Code Status Onset Date Resolution Date Notes Provider Name and Address Organization Details Recorded Time Lower back injury 832648728 Active 017 Venus Lowery [facility] 12/12/2016 16:17:06 Problem Notes None recorded. Procedures Surgical History Date Name Laterality Status Provider Name and Address Organization Details Recorded Time 12/14/19 17 Control Implant Replacement completed Brittny Rosa [facility] 12/13/2016 14:38:14 Cholecystectomy completed Venus Lowery [facility] 12/12/2016 16:25:54 Imaging Results None recorded. Procedure Notes None recorded. Medical Equipment None Reported. Allergies No known drug allergies Medications Name Sig Start Date Stop Date Status Note LastModified by Organization Details LastModified Time [place] 7.5 mg-325 mg tablet Take by oral [...] Body height Body mass index (BMI) Systolic And Diastolic Provider Name and Address Organization Details Last Updated DateTime 12/12/2016 765575.49 g 167.64 cm 39.6 kg/m2 118/90 mm[Hg] Venus Lowery [facility] 12/12/2016 16:15:25 Date Recorded Body height Body weight Body mass index (BMI) Systolic And Diastolic Provider Name and Address Organization Details Last Updated DateTime 12/13/2016 167.64 cm 653094.6 g 39.8 kg/m2 120/86 mm[Hg] Venus Lowery [facility] 12/13/2016 14:04:33 Date Recorded Body height Body weight Body mass index (BMI) Systolic And Diastolic Provider Name and Address Organization Details Last Updated DateTime 12/27/2016 167.64 cm 933882.93 g 39.6 kg/m2 116/84 mm[Hg] Venus Lowery [facility] 12/27/2016 11:26:14 Social History Question Answer Notes LastModified by Organizat ion Details LastModified Time Tobacco Smoking Status Never [facility]oker [facility] 12/12/2016 16:24:09 Is Blood Transfusion Acceptable In An Emergency? Yes Information not available 12/12/2016 What Is Your Level Of Caffeine Consumption? Heavy Information not available 12/12/2016 How Much Tobacco Do You Chew? None Information not available 12/12/2016 What Type Of [...] ion Details LastModified Time What is your level of alcohol consumption? None Information not available 12/12/2016 Are you currently employed? No Information not available 12/12/2016 What is your exercise level? Occasional Information [...] 2016 16:22:22 Maternal Grandfather Cerebrovascu lar accident [place] Not available 16:22:29 Father Malignant neoplasm of brain [place] Not available 2016 16:22:47 Father Hypercholest erolemia [place] Not available 2016 16:23:58 Paternal Grandmother Malignant neoplasm of ovary [place] Not available 2016 16:23:08 Paternal Grandmother Diabetes mellitus [place] Not available 2016 16:23:46 Maternal Grandmother Leukemia [place] Not available 11/22 16:23:21 Medical History Condition [...] SNOMED-CT Code Diagnosis ICD10 Code Diagnosis Note [id number] MD Ab Luo ([employer]) [address] [place] [address] 12/12/2016 15:54:42 12/16/2016 08:03:40 Contraception care management 831802817 Z30.9 Pt. is UTD with her pap smear. She sees an [employer] who does not insert or remove the Nexplanon. Pt. to schedule Nexplanon replacemen t within the next 10 days. Will do UPT and Nexplanon replacemen t. [id number] MD Ab Luo ([employer]) [address] [place] [address] 12/13/2016 13:47:13 12/16/2016 08:09:02 Subcutaneous contraceptive implant palpable 182963906 Z30.49 Benefits, risks, and alternativ es to Nexplanon replacemen t d/w pt. Pt. expressed understand ing. All pt. questions answered. Consent signed and in chart. Current Nexplanon 12/10/16. UPT is negative today. Nexplanon replaced per protocol and without difficulty . Please see procedure note for details. Pt. tolerated the procedure well. RTO 2 weeks for follow-up. Removal of subcutaneous contraceptive done [id number] Z98.890 See above Implantati on of subcutaneous contraceptive 907955756 Z30.9 See above. [id number] [facility] [employer]) [address] [place] [address] 12/27/2016 10:55:15 12/30/2016 12:13:36 Subcutaneous contraceptive implant palpable 594559347 Z30.[address] Expectatio ns discussed. Health Concerns Section Related Observation LastModified by Organization Detai ls LastModified Time None Recorded Concern Status LastModified by Organization Details LastModified Time None Recorded Advance Directives Directive None Recorded Payers Encounter Date Sequence Insurance Name Policy Number Policy Larkin Covered Member ID Larkin Member ID Guarantor Name 12/12/2016 1 [place] [id number] 12/13/2016 1 [place] [facility] PUBLIC AID [place] [id number] Kayleyneo [place]ragon 12/27/2016 1 [place] [facility] PUBLIC AID [facility] [id number] [facility] Notes Date Note Type Note Provider Name and Address Organization Details Recorded Time 12/12/2016 text/html Pt. presents for consulation re Nexzplanon replacement. Her current Nexplanon 12/10/16. She likes it and wants another one. TOVA Mack - [facility] 12/13/2016 14:03:06 12/13/2016 text/html Pt. presents for Nexplanon replacement. She has no complaints. Her current Nexplanon 12/10/16. Brittny león, [facility] - [facility] 12/13/2016 14:43:15 12/27/2016 text/html Pt. [...] Domestic Partner Domestic Partner Phone Father Name Sales Office Assistant Status 12/13/19 17 1 CLOSED Fetus Data First Name Last Name Admitted to NICU Weight (g) Sex Living Outcome Pediatric Complications Fetus ID Race Codes Race Delivery Type 3798.83 3 M Full Term [address] Vaginal Mohan Calculation Initial Mohan Date Initial [...] Domestic Partner Domestic Partner Phone Father Name Sales Office Assistant Status 12/13/19 17 1 CLOSED Fetus Data First Name Last Name Admitted to NICU Weight (g) Sex Living Outcome Pediatric Complications Fetus ID Race Codes Race Delivery Type 3742.13 4 M Full Term [address]84 Vaginal Mohan Calculation Initial Mohan Date Initial [...] Domestic Partner Domestic Partner Phone Father Name Sales Office Assistant Status 12/13/19 17 1 CLOSED Fetus Data First Name Last Name Admitted to NICU Weight (g) Sex Living Outcome Pediatric Complications Fetus ID Race Codes Race Delivery Type 3231.84 3 F Full Term [address]270 Vaginal Mohan Calculation Initial Mohan Date Initial [...] Domestic Partner Domestic Partner Phone Father Name Sales Office Assistant Status 12/13/19 17 1 CLOSED Fetus Data First Name Last Name Admitted to NICU Weight (g) Sex Living Outcome Pediatric Complications Fetus ID Race Codes Race Delivery Type 3373.36 3704 M Full Term [address]9877 Vaginal Mohan Calculation Initial Mohan Date Initial [...]
--- OUTSIDE RECORDS SUMMARY | 2024-12-17 15:06 | XMS_ITS | Referral Summary ---
Author Organization [facility] Address [address] [place] [address] Care Team Providers Care Baggage Porter Name Role Phone Kal Li MD Primary [...] change. Assessment & Plan (09/13/2022 8:49 AM SURFACE ROOM [employer]): Continue small frequent meals. Continue to exercise [...] reassess Assessment & Plan (09/23/2021 9:55 AM SURFACE ROOM [facility]): Given their past success the patient would [...] 03/14/2023 Assessment & Plan (06/14/2022 9:00 AM SURFACE ROOM [facility]): Continue small frequent meals. Okay to return [...] been discussed and handout given. We will social services counselor the patient to avoid for at [...] on file Legal Sex Female 7:38 PM SURFACE ROOM [facility] Gender Identity Female 09/12/2022 7:43 PM SURFACE ROOM [facility] Sexual Orientation Straight 09/12/2022 7: 43 PM SURFACE ROOM [facility] Last Filed Vital Signs Vital Sign [place] [...] Plan of Treatment Not on file Insurance [facility] Advance Directives For more information, please contact: [phone] * Full Code (Latest Code Status on File) Date Activated Date Inactivated Comments 05/04/2022 3:34 PM 05/06/2022 7:18 PM * Full Code Date Activated Date Inactivated Comments 02/08/2022 12:38 PM 02/08/2022 6:44 PM * Full Code Date Activated Date Inactivated Comments 02/08/2022 12:38 PM 02/08/2022 12:38 PM Care Teams Baggage Porter Relationship Specialty Start Date End Date Kal Li MD [address] [address] PCP - General Internal Medicine 08/27/21
--- OUTSIDE RECORDS SUMMARY | 2024-12-17 15:07 | XMS_ITS | Data Portability ---
Author Organization [place] - [employer], Main Office Address [address] [place] [address] Assessment Encounter Date Assessment Date Assessment LastModified by Organization Details LastModified Time 08/22/2023 08/22/2023 [email or web address] campos Not available 16:51:21 Plan of Treatment Reminders Order Date Submit Date Provider Last Modified By Organization Details Last Modified Time Details Appointments None recorded. Lab lipid panel, serum [address] (Lab), [address] [place] [address], [address], 5 11:26:43 CMP, serum or plasma 025 [facility] (Lab), [address] [place] [address], [address], 5 13:41:37 CBC w/ auto diff 025 [facility] (Lab), [address] [place] [address], [address], 5 11:30:22 TSH, serum or plasma [address] (Lab), [address] [place] [address], [address], 5 17:28:58 T4, free, serum [address] (Lab), [address] [place] [address], [address], 5 17:28:58 drug screen, urine 025 [facility] [employer] [facility], [address], [place], [address], 5 17:50:01 lipid panel, serum 024 [facility] (Lab), [address] [place] [address], [address], 4 13:27:56 CMP, serum or plasma 024 [facility] (Lab), [address] [place] [address], [place], [address], 4 13:28:06 TSH, serum or plasma 024 [facility] (Lab), [address] [place] [address], [address], 4 13:29:40 T4, free, serum 024 [facility] (Lab), [address] [place] [address], [place], [address], 4 13:29:55 vitamin B12, serum 024 024 [facility] (Lab), [address] [place] [address], [place], [address], 4 13:49:05 magnesium , blood [address] (Lab), [address] [place] [address], [place], [address], 4 16:33:55 CBC w/ auto diff 024 [facility] (Lab), [address] [place] [address], [address], 4 12:42:17 drug screen, urine 024 024 CR [employer] [facility], [address], [place], [address], 4 19:19:33 lipid panel, serum [address] (Lab), [address] [place] [address] [address], [place], [address], 3 14:07:09 CMP, serum or plasma 023 023 [facility] (Lab), [address] [place] [address] [address] [place], [address], 3 12:50:01 CBC w/ auto diff [address] (Lab), [address] [place] [address], [address], 3 14:07:10 vitamin B12, serum 023 023 [facility] (Lab), [address] [place] [address], [address], 3 12:50:01 magnesium , blood [address] (Lab), [address] [place] [address], [address], 3 14:07:09 TSH, serum or plasma [address] (Lab), [address] [place] [address], [address], 3 14:07:10 T4, free, serum [address] (Lab), [address] [place] [address], [address], 3 14:07:10 Referral None recorded. Procedures None recorded. Surgeries None recorded. Imaging None recorded. Medication Orders None recorded. Patient TargetsNo targets recorded. Patient Instructions Encounter Date Encounter Id Patient Instructions Last Modified By Organization Details Last Modified Time 01/31/2023 [id number] Asthma -GERD-chronic pain syndrome-obesity class one. Clinically stable. Check blood work consisting of CBC, CMP, thyroid, B12 and magnesium level. Continue on current Rx follow-up and six months Not available 01/31/2023 15:04:07 07/28/2023 [id number] risk assessment* [email or web address] Not availabl e 07/28/2023 12:28:24 INFLUENZA VACCIN E Recommended today, but patient declined Ordered Patient will get at local pharmacy/health department Amador george has egg allergy Your next one in the fall of Your next one in the fall of _2023 TD/TDAP Patient will get at local pharmacy/health department MAMMOGRAM No screening indicated at this time/ no family history CERVICAL SCREENING/PELVIC EXAMINATION No screening necessary patient is up to date COLORECTAL SCREENING No screening necessary until age 45 DEPRESSION SCREENING Negative BMI Overweight try to lose 10% of your body weight NUTRITION Heart Healthy Diet Recommendati on of a 1500 caloric intake for weight loss is advised Diabetic Diet Renal Diet DASH Diet Continue healthy eating & exercise Eat Heart Healthy Diet PHYSICAL ACTIVITY Need more activity VISION Ordered Recommend ed today Recommended today, but you have declined No Eye exam necessary Your next exam in: goes every 2 yrs ALCOHOL USE No alcohol use TOBACCO USE non smoker SEXUALLY ACTIVE GLUCOSE SCREENING Ordered Not needed Known Diabetic up to date LIPID SCREENING Ordered Not needed Diagnosis of hyperlipidemia up to date Not available 07/28/2023 12:06:28 Well patient evaluation [...] recognize, using context, where substitutions have occurred. [email or web address] Not available 07/28/2023 12:27:33 08/22/2023 [id number] soaking instructions; to soak qd in warm, soapy water, and Silvadene for dressings. [email or web address] Not available 08/22/2023 16:53:18 02/22/2024 [id number] Follow-up GERD, depression, migraine headaches, chronic pain [...] recognize, using context, where substitutions have occurred. Not available 02/22/2024 14:44:25 09/17/2024 [id number] Follow-up migraine headaches, asthma, anxiety disorder and [...] Created: Juan Li M.D. 09.17.2024 10:25 AM [email or web address] Not available 09/17/2024 11:25:57 Reason for Referral None Reported. Results Created Date Observation Date Name Description Value Unit Range Abnormal Flag Note LastModifiedBy Organization Detail LastModifiedTime 07/28/1907/28/2023 URINE DRUG SCREE N amphetamines NEGATI VE Amphe tamin e cut off 500 ng/mL Not Available [facility] (Lab) [address] [place], [address], 07/28/2023 19:19:33 07/28/1907/28/2023 URINE DRUG SCREE N barbiturates NEGATI VE Linda turat e cut off 200 ng/mL Not Available [facility] (Lab) [address] [place], [address], 07/28/2023 19:19:33 07/28/1907/28/2023 URINE DRUG SCREE N benzodiazepi álvaro NEGATI VE Benzo diaze pine cut off 200 ng/mL Not Available [facility] (Lab) [address] [place], [address], 07/28/2023 19:19:33 07/28/19 24 07/28/2023 URINE DRUG SCREE N cocaine NEGATI VE Cocai ne metab olite cut off 150 ng/mL Not Available [facility] (Lab) [address] [place], [address], 07/28/2023 19:19:33 07/28/19 24 07/28/2023 URINE DRUG SCREE N MDMA NEGATI VE MDMA cut off 500 ng/mL Not Available [facility] (Lab) [address] [place], [address], 07/28/2023 19:19:33 07/28/19 24 07/28/2023 URINE DRUG SCREE N methadone NEGATI VE Metha done cutof f 300 ng/mL . Not Available [facility] (Lab) [address] [place], [address], 07/28/2023 19:19:33 07/28/19 24 07/28/2023 URINE DRUG SCREE N opiates POSITI VE abnormal Opiat e cut off 300 ng/mL Not Available [facility] (Lab) [address] [place], [address], 07/28/2023 19:19:33 07/28/19 24 07/28/2023 URINE DRUG SCREE N oxycodone NEGATI VE Oxyco done cut off 100 ng/mL Not Available [facility] (Lab) [address] [place], [address], 07/28/2023 19:19:33 07/28/19 24 07/28/2023 URINE DRUG SCREE N phencyclidin e NEGATI VE PCP cut off 25 ng/mL Not Available [facility] (Lab) [address] [place], [address], 07/28/2023 19:19:33 07/28/19 24 07/28/2023 URINE DRUG SCREE N marijuana NEGATI VE abnormal Marij uana cut off 50 ng/mL ANY POSIT FABIANO RESUL TS REPOR MARLEN ARE UNCON FIRME D, AND SUCH, SHOUL D BE USED FOR MEDIC AL TREAT MENT PURPO SES ONLY. Not Available [facility] (Lab) [address] [place], [address], 07/28/2023 19:19:33 08/01/19 24 08/01/2023 CBC/C OMPLE TE BLD COUNT W/DIF F white blood cells 8.4 x10'3 /uL 4.2-10 .8 Not Available [facility] (Lab) [address] [place], [address], 08/01/2023 12:42:17 08/01/19 24 08/01/2023 CBC/C OMPLE TE BLD COUNT W/DIF F red blood cells 4.58 x10'6 /uL 3.80-5 .20 Not Available [facility] (Lab) [address] [place], [address], 08/01/2023 12:42:17 08/01/19 24 08/01/2023 CBC/C OMPLE TE BLD COUNT W/DIF F hemoglobin 13.7 g/dL 12.0-1 5.6 Not Available [facility] (Lab) [address] [place], [address], 08/01/2023 12:42:17 08/01/19 24 08/01/2023 CBC/C OMPLE TE BLD COUNT W/DIF F hematocrit 42.1 % 35.7-4 5.7 Not Available [facility] (Lab) [address] [place], [address], 08/01/2023 12:42:17 08/01/19 24 08/01/2023 CBC/C OMPLE TE BLD COUNT W/DIF F mean red cell volume 91.9 fL 82.0-9 9.0 Not Available [facility] (Lab) [address] [place], [address], 08/01/2023 12:42:17 08/01/19 24 08/01/2023 CBC/C OMPLE TE BLD COUNT W/DIF F mean red cell hemoglobin 29.9 pg 27.0-3 3.0 Not Available [facility] (Lab) [address] [place], [address], 08/01/2023 12:42:17 08/01/1908/01/2023 CBC/C OMPLE TE BLD COUNT W/DIF F mean RBC HGB concentratio n 32.5 g/dL 31.0-3 6.0 Not Available [facility] (Lab) [address] [place], [address], 08/01/2023 12:42:17 08/01/19 24 08/01/2023 CBC/C OMPLE TE BLD COUNT W/DIF F red cell distribution width 12.1 % 11.8-1 5.5 Not Available [facility] (Lab) [address] [place], [address], 08/01/2023 12:42:17 08/01/19 24 08/01/2023 CBC/C OMPLE TE BLD COUNT W/DIF F platelets 215 x10'3 /uL 150-40 0 Not Available [facility] (Lab) [address] [place], [address], 08/01/2023 12:42:17 08/01/1908/01/2023 CBC/C OMPLE TE BLD COUNT W/DIF F mean platelet volume 11.4 fL 9.0-12 .4 Not Available [facility] (Lab) [address] [place], [address], 08/01/2023 12:42:17 08/01/19 24 08/01/2023 CBC/C OMPLE TE BLD COUNT W/DIF F neutrophils 66.2 % 39.0-7 2.0 Not Available [facility] (Lab) [address] [place], [address], 08/01/2023 12:42:17 08/01/19 24 08/01/2023 CBC/C OMPLE TE BLD COUNT W/DIF F lymphocytes 26.3 % 16.0-4 7.0 Not Available [facility] (Lab) [address] [place], [address], 08/01/2023 12:42:17 08/01/19 24 08/01/2023 CBC/C OMPLE TE BLD COUNT W/DIF F monocytes 4.6 % 5.0-12 .0 low Not Available [facility] (Lab) [address] [place], [address], 08/01/2023 12:42:17 08/01/19 24 08/01/2023 CBC/C OMPLE TE BLD COUNT W/DIF F eosinophils 2.2 % 1.0-7. 0 Not Available [facility] (Lab) [address] [place], [address], 08/01/2023 12:42:17 08/01/19 24 08/01/2023 CBC/C OMPLE TE BLD COUNT W/DIF F basophils 0.5 % 0.0-2. 0 Not Available [facility] (Lab) [address] [place], [address], 08/01/2023 12:42:17 08/01/1908/01/2023 CBC/C OMPLE TE BLD COUNT W/DIF F immature granulocytes 0.2 % 0.00-0 .50 Not Available [facility] (Lab) [address] [place], [address], 08/01/2023 12:42:17 08/01/19 24 08/01/2023 CBC/C OMPLE TE BLD COUNT W/DIF F neutrophils, absolute count 5.53 x10'3 /uL 1.5-8. 0 Not Available [facility] (Lab) [address] [place], [address], 08/01/2023 12:42:17 08/01/19 24 08/01/2023 CBC/C OMPLE TE BLD COUNT W/DIF F lymphocytes, absolute count 2.20 x10'3 /uL 1.07-3 .43 Not Available [facility] (Lab) [address] [place], [address], 08/01/2023 12:42:17 08/01/19 24 08/01/2023 CBC/C OMPLE TE BLD COUNT W/DIF F monocytes, absolute count 0.38 x10'3 /uL 0.29-0 .99 Not Available [facility] (Lab) [address] [place], [address], 08/01/2023 12:42:17 08/01/19 24 08/01/2023 CBC/C OMPLE TE BLD COUNT W/DIF F eosinophils, absolute count 0.18 x10'3 /uL 0.02-0 .53 Not Available [facility] (Lab) [address] [place], [address], 08/01/2023 12:42:17 08/01/19 24 08/01/2023 CBC/C OMPLE TE BLD COUNT W/DIF F basophils, absolute count 0.04 x10'3 /uL 0.01-0 .08 Not Available [facility] (Lab) [address] [place], [address], 08/01/2023 12:42:17 08/01/19 24 08/01/2023 CBC/C OMPLE TE BLD COUNT W/DIF F immature granulocytes ,absolute 0.02 x10'3 /uL 0.00-0 .05 Not Available [facility] (Lab) [address] [place], [address], 08/01/2023 12:42:17 08/01/19 24 08/01/2023 CBC/C OMPLE TE BLD COUNT W/DIF F nucleated red blood cells 0.0 % -0 Not Available [facility] (Lab) [address] [place], [address], 08/01/2023 12:42:17 08/01/19 24 08/01/2023 CBC/C OMPLE TE BLD COUNT W/DIF F NRBC# 0.00 x10'3 /uL Not Available [facility] (Lab) [address] [place], [address], 08/01/2023 12:42:17 08/01/19 24 08/01/2023 MAGNE SIUM magnesium 2.1 mg/dL 1.6-2. 3 Not Available [facility] (Lab) [address] [place], [address], 08/01/2023 13:27:55 08/01/1908/01/2023 LIPID PANEL cholesterol 149 mg/dL 140-19 9 NIH RUSSELL NSUS RECOM MENDA TION FOR ROGELIO STERO L: ADULT CHILD LOW RISK: <200 <170 BORDE RLINE : <200- 239 ----- HIGH RISK: >240 >200 Not Available [facility] (Lab) [address] [place], [address], 08/01/2023 13:27:56 08/01/1908/01/2023 LIPID PANEL triglyceride s 73 mg/dL 0-150 NIH RUSSELL NSUS REPOR T RECOM MENDA TION FOR TRIGL YCERI LASHAUN: ADULT CHILD LOW RISK: <150 ----- BODER LINE: 150-1 99 ----- HIGH RISK: >200 ----- Not Available [facility] (Lab) [address] [place], [address], 08/01/2023 13:27:56 08/01/19 24 08/01/2023 LIPID PANEL HDL cholesterol 34 mg/dL 40- low Not Available [facility] (Lab) [address] [place], [address], 08/01/2023 13:27:56 08/01/19 24 08/01/2023 LIPID PANEL [...] WILL NOT BE REPOR MARLEN. Not Available [facility] (Lab) [address] [place], [address], 08/01/2023 13:27:56 08/01/19 24 08/01/2023 COMPR EHENS FABIANO METAB OLIC PANEL sodium 139 mmol/ L 137-14 5 Not Available [facility] (Lab) [address] [place], [address], 08/01/2023 13:28:06 08/01/19 24 08/01/2023 COMPR EHENS FABIANO METAB OLIC PANEL potassium 4.5 mmol/ L 3.5-5. 1 Not Available [facility] (Lab) [address] [place], [address], 08/01/2023 13:28:06 08/01/19 24 08/01/2023 COMPR EHENS FABIANO METAB OLIC PANEL chloride 104 mmol/ L 98-107 Not Available [facility] (Lab) [address] [place], [address], 08/01/2023 13:28:06 08/01/19 24 08/01/2023 COMPR EHENS FABIANO METAB OLIC PANEL carbon dioxide 27 mmol/ L 22-30 Not Available [facility] (Lab) [address] [place], [address], 08/01/2023 13:28:08/01/19 24 08/01/2023 COMPR EHENS FABIANO METAB OLIC PANEL anion gap 12.5 mmol/ L 14-22 low Not Available [facility] (Lab) [address] [place], [address], 08/01/2023 13:28:06 08/01/19 24 08/01/2023 COMPR EHENS FABIANO METAB OLIC PANEL glucose 89 mg/dL 70-99 Not Available [facility] (Lab) [address] [place], [address], 08/01/2023 13:28:06 08/01/19 24 08/01/2023 COMPR EHENS FABIANO METAB OLIC PANEL BUN 20 mg/dL 8-19 high Not Available [facility] (Lab) [address] [place], [address], 08/01/2023 13:28:08/01/19 24 08/01/2023 COMPR EHENS FABIANO METAB OLIC PANEL creatinine 0.57 mg/dL 0.66-1 .25 low Not Available [facility] (Lab) [address] [place], [address], 08/01/2023 13:28:08/01/19 24 08/01/2023 COMPR EHENS FABIANO METAB OLIC PANEL GFR >60 Refer ence Range : [place] ge GFR Healt hy Adult : >60 [...] calcu lator is avail able on the [facility] websi te: [email or web address] :[email or web address] rg/pr ofess ional s/kdo qi/gf r_cal culat or Not Available [facility] (Lab) [address] [place], [address], 08/01/2023 13:28:08/01/19 24 08/01/2023 COMPR EHENS FABIANO METAB OLIC PANEL alkaline phosphatase 80 U/L 38-126 Not Available [facility] (Lab) [address] [place], [address], 08/01/2023 13:28:08/01/19 24 08/01/2023 COMPR EHENS FABIANO METAB OLIC PANEL alanine aminotransfe rase 15 U/L 0-35 Not Available [facility] (Lab) [address] [place], [address], 08/01/2023 13:28:06 08/01/19 24 08/01/2023 COMPR EHENS FABIANO METAB OLIC PANEL aspartate aminotransfe rase 19 U/L 15-37 Not Available [facility] (Lab) [address] [place], [address], 08/01/2023 13:28:06 08/01/19 24 08/01/2023 COMPR EHENS FABIANO METAB OLIC PANEL bilirubin, total 1.00 mg/dL 0.20-1 .30 Not Available [facility] (Lab) [address] [place], [address], 08/01/2023 13:28:08/01/19 24 08/01/2023 COMPR EHENS FABIANO METAB OLIC PANEL calcium 9.8 mg/dL 8.4-10 .2 Not Available [facility] (Lab) [address] [place], [address], 08/01/2023 13:28:08/01/19 24 08/01/2023 COMPR EHENS FABIANO METAB OLIC PANEL total protein 7.0 g/dL 6.3-8. 2 Not Available [facility] (Lab) [address] [place], [address], 08/01/2023 13:28:08/01/19 24 08/01/2023 COMPR EHENS FABIANO METAB OLIC PANEL albumin 4.3 g/dL 3.4-5. 0 Not Available [facility] (Lab) [address] [place], [address], 08/01/2023 13:28:08/01/1908/01/2023 COMPR EHENS FABAINO METAB OLIC PANEL globulin 2.7 g/dL 2.6-4. 2 Not Available [facility] (Lab) [address] [place], [address], 08/01/2023 13:28:08/01/19 24 08/01/2023 COMPR EHENS FABIANO METAB OLIC PANEL A/G ratio 1.6 ratio 1.0-2. 0 Not Available [facility] (Lab) [address] [place], [address], 08/01/2023 13:28:08/01/19 24 08/01/2023 TSH thyroid-stim ulating hormone 1.150 uIU/m L 0.465- 4.680 Not Available [facility] (Lab) [address] [place], [address], 08/01/2023 13:29:40 08/01/19 24 08/01/2023 T4 FREE free T4 0.99 NG/dL 0.78-2 .19 Not Available [facility] (Lab) [address] [place], [address], 08/01/2023 13:29:55 08/01/19 24 08/01/2023 VITAM IN B12 (TOBIAS ISSA ) vb12 854 pg/mL 239-93 1 Not Available [facility] (Lab) [address] [place], [address], 08/01/2023 13:49:05 11/07/19 25 11/06/2024 XR, chest , 2 view No observ ation record ed. [address], [place], [address], 11/06/2024 13:44:10 Result Notes None recorded. Problems Name Problem SNOMED Code Status Onset Date Resolution Date Notes Provider Name and Address Organization Details Recorded Time Renewal of prescripti on Active 2021 Not Available [facility] 3 13:52:57 Paronychia of toe of left foot 5573821242199 9100 Active 2019 Not Available [facility] 3 13:52:57 Irritable bowel syndrome 10060855 Active Not Available [facility] 3 13:52:57 Plantar fascial fibromatos is 46912566 Active Not Available [facility] 3 13:52:57 Acute sinusitis 26956541 Active 2021 Not Available [facility] 3 13:52:57 Asthma 806944730 Active Not Available [facility] 3 13:52:57 Anxiety disorder 007555368 Active 2016 Not Available [facility] 3 13:52:57 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 404539558 Active 2021 Not Available [facility] 3 13:52:57 Lumbar sprain 492954567 Active Not Available [facility] 3 13:52:57 Gastroesop hageal reflux disease 213713489 Active Not Available [facility] 3 13:52:57 Morbid obesity 572926206 Active 2021 Not Available [facility] 3 13:52:57 Finding of body mass index 106701567 Active 2021 Not Available [facility] 3 13:52:57 Depressive disorder 39862374 Active Not Available [facility] 3 13:52:57 Pain of multiple joints 63232539 Active 2017 Not Available [facility] 3 13:52:57 Chronic pain syndrome 576061922 Active 2017 Not Available [facility] 3 13:52:58 Migraine 29881995 Active Not Available [facility] 3 13:52:58 Ingrowing toenail 711223778 Active 2019 Not Available [facility] 3 13:52:58 Acute urinary tract infection 516961021 Active 2021 Not Available [facility] 3 13:52:58 Herpes zoster 2968567 Active 2022 Not Available [facility] 3 13:52:58 Stomatitis 18682673 Active 2021 Not Available [facility] 3 13:52:58 Otitis media 57385543 Active 2021 Not Available [facility] 3 13:52:58 Secondary restless legs syndrome 668457110 Active 2022 Not Available [facility] 3 13:52:58 Candidiasi s of mouth 00884003 Active 2021 Not Available [facility] 3 13:52:58 Recurrent aphthous stomatitis 810633791 Active 2022 Juan Li MD [address] [facility], [place] [address], [place], [address] , [facility] 3 11:00:29 Obese class I 8349334704518 07 Active 2022 Juan Li MD [address], [place], [address] , [place] [facility] 3 14:59:34 Cellulitis of toe of right foot 9122175754433 9106 Active 2022 Juan Li MD [address], [address], [place], [address] , [place] [facility] 3 11:58:39 Cellulitis of foot 448339855 Active 2022 Juan Li MD [address], [address], [place], [address] , [place] [facility] 3 12:48:24 Allergic rhinitis 97802286 Active 2022 Juan Li MD [address], [address], [place], [address] , [place] [facility] 3 15:11:15 Eczema 39860976 Active 2023 Juan Li MD [address], [address], [place], [address] , [place] [facility] 4 15:39:28 Pain in right foot 5902636877847 07 Active 2023 Sanju Lan DPM [address], [address], [place], [address] , [place] [facility] 4 16:51:25 Pain in left foot 3491117358516 07 Active 2023 Sanju Lan DPM [address], [address], [place], [address] , [place] [facility] 4 16:51:42 Paronychia of toe of right foot 3062992911725 9102 Active 2023 Sanju Lan DPM [address], [place], [address] , [place] [facility] 4 16:51:54 Acute pharyngiti s 794865967 Active 2023 Juan Li MD [address], [place], [address] , [facility] 4 11:49:36 Fever 312156346 Active 2024 Rachel Ryan LAW REPORTER null, [facility] 5 11:08:28 Fatigue 63972988 Active 2024 Juan Li MD [address], [place], [address] , [facility] 5 11:25:45 Cough 36825228 Active 2024 Rachel Ryan CMA null, [facility] 5 10:50:25 Acute bronchitis 77989675 Active 2024 Juan Li MD [address], [place], [address] , [facility] 5 15:14:20 Problem Notes None recorded. Medical Equipment None Reported. Allergies Allergen ID Allergen Name Allergen Category Reaction Reaction Severity Criticality Documentation Date Start Date Code Code System Note Provider Name and Address Organization Details Recorded Time 74025 Buspar medicatio n other mild Not available 09/21/2022 56768 0 RxNorm cause d heart to flutt er Not Available [facility] 3 13:54:43 Medications Name Sig Start Date [...] Available Not Available Not Available doxycycli ne hyclate 100 mg capsule TAKE 1 CAPSULE BY MOUTH TWICE DAILY active Not Available Not Available No t Available ropinirol e 1 mg tablet TAKE [...] 6 hours by oral route. 03/02 completed EBONY SANTOSANDA [address] [email or web address] [address] 06/04/19 85 8 HYDROCOD ONE BITARTRA TE-ACETA MINOPHE 7.5MG-32 5MG 120/30 Medicaid [employer] JUAN DEY MD ADRIANA [address] [email or web address] [place] [address] 06/04/19 85 8 HYDROCOD ONE BITARTRA TE-ACETA MINOPHE 7.5MG-32 5MG 120/ 30 Medicaid [employer] JUAN DEY MDAGER ADRIANA [address] [email or web address] [address] 06/04/19 85 8 HYDROCOD ONE BITARTRA TE-ACETA MINOPHE 7.5MG-32 5MG 120/30 Medicaid [employer]/ JUAN DEY MDAGER ADRIANA [address] [email or web address] [address] 06/04/19 85 09/27/2017 HYDROCOD ONE BITARTRA TE-ACETA MINOPHE 7.5MG-32 5MG 120/30 Medicaid [employer]/ JUAN DEY MDAGER ADRIANA [address] [email or web address] [address] 06/04/19 85 08/27/2017 HYDROCOD ONE BITARTRA TE-ACETA MINOPHE 7.5MG-32 5MG 120/30 Insuranc e [employer] JUAN DEY MDAGER [address] [email or web address] [address] 06/04/19 85 07/27/2017 LORAZEPA M 1MG 90/30 Insuranc e [employer]/ JUAN DEY MD ADRIANA [address] [email or web address] [address] 06/04/19 85 07/26/2017 HYDROCOD ONE BITARTRA TE-ACETA MINOPHE 7.5MG-32 5MG 120/30 Insuranc e [employer]/ Cash Check Card JUAN LAN MD ADRIANA [address] [place] [address] 06/04/19 85 7 HYDROCOD ONE BITARTRA TE-ACETA MINOPHE 7.5MG-32 5MG 120/30 Insuranc e BareedEE/ [email or web address].comJUAN ETIENNE MD [address]RIANA [address] [email or web address] [address] 06/04/19 85 7 LORAZEPA M 1MG 90/30 Insuranc e [employer]/ Cash Check Card JUAN LAN MD [address] [place] [address] 06/04/19 85 7 HYDROCOD ONE BITARTRA TE-ACETA MINOPHE 7.5MG-32 5MG 09582/03 0 Medicaid BareedEE/ JORGEVenuemobJUAN ETIENNE Not Available Not Available Not Available cephalexi [...] 1 TABLET BY MOUTH EVERY 12 HOURS active Not Available Not Available No t Available oxycodone 5 mg tablet TAKE 1 [...] in Arterial blood by Pulse oximetry Systolic And Diastolic Provider Name and Address Organization Details Last Updated DateTime 4 166.37 cm 30.5 kg/m2 30716.1 8 g 97.8 [degF] 87 /min 98 % 98 % 112/64 mm[Hg] Camelia Schneider MA [facility] [employer] [facility] 4 12:02:52 Date Recorded Body height Heart rate Oxygen saturation Oxygen saturation in Arterial blood by Pulse oximetry Body temperature Body mass index (BMI) Body weight Systolic And Diastolic Provider Name and Address Organization Details Last Updated DateTime 4 166.37 cm 90 /min 98 % 98 % 97.6 [degF] 30.3 kg/m2 94122.5 9 g 138/60 mm[Hg] KARTIK Young [facility] [employer] [facility] 4 14:11:10 Date Recorded Body height Body mass index (BMI) Body weight Heart rate Body temperature Oxygen saturation Oxygen saturation in Arterial blood by Pulse oximetry Systolic And Diastolic Provider Name and Address Organization Details Last Updated DateTime 5 166.37 cm 28.7 kg/m2 60171.6 6 g 63 /min 97 [degF] 97 % 97 % 118/60 mm[Hg] Ernestine Taylorkae [facility] [employer] [facility] 5 11:04:11 Date Recorded Body height Body mass index (BMI) Body weight Heart rate Body temperature Oxygen saturation Oxygen saturation in Arterial blood by Pulse oximetry Systolic And Diastolic Provider Name and Address Organization Details Last Updated DateTime 3 166.37 cm 32 kg/m2 13539.5 1 g 78 /min 97 [degF] 97 % 97 % 110/62 mm[Hg] Ernestine Taylorkae [facility] [employer] [facility] 3 14:45:01 Date Recorded Body height Body mass index (BMI) Body weight Heart rate Body temperature Oxygen saturation Oxygen saturation in Arterial blood by Pulse oximetry Systolic And Diastolic Provider Name and Address Organization Details Last Updated DateTime 4 166.37 cm 30.6 kg/m2 60316.7 7 g 73 /min 97.8 [degF] 95 % 95 % 120/80 mm[Hg] KARTIK Bautista [facility] [employer] [facility] 4 14:25:17 Social History Question Answer Notes LastModified by Organizat ion Details LastModified Time Tobacco Smoking Status Never Smoker KARTIK Young [facility] [employer] [facility] 08/22/2023 14:12:25 If You Are , What Was Your Level Of Alcohol Consumption Prior To ? None [email or web address] Information not available 08/22/2023 What Is Your Level Of Caffeine Consumption? Occasional [email or web address] Information not available 08/22/2023 In The 14 Days Before Symptom Onset, Have You Had Close Contact With A Laboratory-confirm ed COVID-19 While That Case Was Ill? No [id number] Information not available 09/21/2022 In The 14 Days Before Symptom Onset, Have You Had Close Contact With A Person Who Is Under Investigation For COVID-19 While That Person Was Ill? No [id number] Information not available 09/21/2022 What Was The Date Of Your Most Recent Tobacco Screening? 08/22/2023 [email or web address] Information not available 08/22/2023 Have You Recently Traveled Abroad? No [id number] Information not available 09/21/2022 Sex: Unknown Functional Status Question Answer Note LastModified by [employer] ion Details LastModified Time Do you use any illicit or recreational drugs? No [email or web address] Information not available 08/22/2023 What is your level of alcohol consumption? None [email or web address] Information not available 08/22/2023 Mental Status None recorded. Family History Nothing Reported Notes:Mother living [address] [facility] tial hypertension and sleep apnea s/p bariatric [...] HAVE YOU BEEN HOSPITALIZED OR SEEN IN [facility] IN THE PAST YEAR ? N [...] formulation 3 completed Rachel Ryan CMA null, [facility] [employer] 08/21/2023 09:51:56 influenza, unspecified formulation 4 completed KARTIK Bautista, [facility] [employer] [facility] 05/29/2024 14:33:00 COVID-19 Non-US Vaccine, Product Unknown 1 completed Not Available [facility] 09/21/2022 13:54:40 Influenza, adjuvanted, trivalent, PF 2 completed Not Available [facility] 09/21/2022 13:54:40 Influenza, split virus, quadrivalent, preservative 9 completed Not Available [facility] 09/21/2022 13:54:41 Influenza, split virus, quadrivalent, PF 8 completed Not Available [facility] 09/21/2022 13:54:41 Influenza, split virus, quadrivalent, preservative 7 completed Not Available [facility] 09/21/2022 13:54:41 Influenza, split virus, quadrivalent, PF 1 completed Not Available [facility] 09/21/2022 13:54:41 Influenza, split virus, quadrivalent, PF 6 completed Not Available [facility] 09/21/2022 13:54:41 Influenza, split virus, quadrivalent, preservative 5 completed Not Available [facility] 09/21/2022 13:54:41 Influenza, split virus, trivalent, preservative 4 completed Not Available [facility] 09/21/2022 13:54:41 Past Encounters Encounter ID Performer Location Encounter Start Date Encounter Closed Date Diagnosis/Indication Diagnosis SNOMED-CT Code Diagnosis ICD10 Code Diagnosis Note [id number] Juan Li MD [facility] Internal [facility] [place] [address] [place] [address] [place] [address] 01/29/2021 00:00:00 01/29/2021 15:17:30 [id number] Juan Li MD [facility] Internal [facility] [place] [address] [place] [address] [place] [address] 05/28/2021 00:00:00 05/28/2021 14:40:17 [id number] Juan Li MD [facility] Internal Med [place] [address] [place] [address] [place] [address] 08/24/2021 00:00:00 08/24/2021 14:58:43 [id number] Juan Li MD [facility] Internal [facility] [place] [address] [place] [address] [place] [address] 12/28/2021 00:00:00 12/28/2021 14:47:18 [id number] Juan Li MD [facility] Internal [facility] [place] [address] [place] [address] [place] [address] 04/26/2022 00:00:00 04/26/2022 14:58:38 [id number] Juan Li MD [facility] Internal [place] [address] [place] [address] [place] [address] 09/02/2022 00:00:00 09/02/2022 14:53:31 [id number] Juan Li MD [facility] Internal Med [place] chery [facility] [place] [place] [address] 01/31/2023 14:23:18 01/31/2023 15:14:44 Chronic pain syndrome 901840621 G89.4 Gastroesop hageal reflux disease 636069059 K21.9 Asthma 192029273 J45.90 9 Obese class I [id number] 80391 E66.9 Screening for cardiovascular system disease 942779067 Z13.6 [id number] Juan Li MD [facility] Internal Med [place] cher[place] [facility] [place] [address] 07/28/2023 11:26:37 07/28/2023 12:38:44 Adult health examination 223505787 Z00.00 Depression screening 171 084050 Z13.31 Chronic pain syndrome 37 5338342 G89.4 Gastroesop hageal reflux disease 903126022 K21.9 Anxiety disorder 2075048 06 F41.9 Long-term current use of opiate analgesic drug 1557720567 24320 Z79.891 Screening for cardiovascular system disease 778159466 Z13.6 [id number] Sanju Lan DPM [facility] [place] [address] [address] 08/22/2023 13:47:15 02/23/2024 11:20:56 Pain in right foot 4221084533 91761 M79.671 local anesthesia , P and A, w/ sharp matrixecto my (curretage and grinding) Pain in left foot 848045 9576 16753 M79.672 same as above, hallux Lt Paronychia of toe of left foot 6172639729 0377497 L03.032 Paronychia of toe of right foot 4893737978 8569707 L03.433 [id number] Juan Li MD [facility] Internal Med [place] [address] [place] [address] 02/22/2024 14:13:55 02/22/2024 14:57:53 Chronic pain syndrome 951849433 G89.4 Gastroesop hageal reflux disease 863800092 K21.9 Obese class I 9465089188 48050 E66.9 Depressive disorder 3548 9007 F32.A Migraine 40636122 G43.90 9 [id number] Juan Li MD [facility] [address] [facility] [address] [place] [address] 09/17/2024 10:40:51 09/17/2024 11:43:34 Chronic pain syndrome 122592549 G89.4 Anxiety disorder 9781539 06 F41.9 Migraine 33876952 G43.90 9 Asthma 498624036 J45.90 9 Long-term current use of opiate analgesic drug 5331259680 42114 Z79.891 Screening for cardiovascular system disease 527397527 Z13.6 Fatigue 67786910 R53.83 Health Concerns Section Related Observation LastModified by Organization Detai ls LastModified Time None Recorded Concern Status LastModified by Organization Details LastModified Time None Recorded Advance Directives Directive None Recorded Payers Encounter Date Sequence Insurance Name Policy Number Policy Larkin Covered Member ID Larkin Member ID Guarantor Name 01/31/2023 1 [facility] (MEDICAID HMO) [id number] Adriana Mondragon [id number] Adriana Mondragon 07/28/2023 1 [facility] (MEDICAID HMO) [id number] Adriana Mondragon [id number] Adriana Mondragon 08/22/2023 1 [facility] [place] ([place]ID [place] [id number] Adriana Mondragon [id number] Adriana Mondragon 02/22/2024 1 [facility] (MEDICAID HMO) [id number] Adriana Mondragon [id number] Adriana Mondragon 09/17/2024 1 [facility] [place] [id number] 0003 Adriana Mondragon [id number] Adriana Mondragon Notes Date Note Type Note [...] or has seen in the past a Body Line Finisher: 5Pain - Enjoyment of Life - General [...] and have advised against this.Need to Query PCAT INSTRUCTOR! Last Query: 09/15/2022Need Drug Screen! Last: 09/02/2022Last [...] offered to be evaluated and instructed by numerical control operator on weight loss diet. Wishes to be evaluated by Dietary: [Dietary Consult?*, Yes, No and was offered to be evaluated and instructed by numerical control operator on weight loss diet].Medication List Reviewed and [...] TidADRs List Reviewed 01/31/2023uspar Heart FlutterVaccination and Nfhevbxouexr7427-56 Tvqgawnva9463-33 Covid PfizerSurgical HistoryGastric Sleve, Lap CholecystectomyPreventative Testing Confirmed by Our Kvstujg4408/31/2021 ALBUMIN 4.1 G/DLSocial HistoryDoes not smoke or drinkWorks at UPSFamily HistoryMother living 62 essential hypertension and sleep apnea s/p bariatric surgery and hx of atrial fibrillationFather 54 essential hypertension and Glioblastoma multiformeOne brother living and in good healthMenarche 12 Menopause A0 Juan Li MD [address] [facility] [address], [place], [address], [facility] [employer] 01/31/2023 15:04:29 07/28/19 24 text/htm l Patient [...] or has seen in the past a Body Line Finisher: No .Pain - Enjoyment of Life - General Activity ScalePain on Average: 4Enjoyment of Live: 5General Activity: 4Enjoyment of Life - General Activity Scale: 4Currently regimen consists of Neurontin, [place] and Zanaflex as prescribed with no evidence [...] TidADRs List Reviewed 4Buspar Heart FlutterVaccination and Ccvxablrhrgh0552-29 Uzvhoehpi8206-97 Covid PfizerSurgical HistoryGastric Sleve, Lap CholecystectomyPreventative Testing Confirmed by Our Dzqpeue9808/31/2021 ALBUMIN 4.1 G/DL NSocial HistoryDoes not smoke or drinkWorks at UPSFamily HistoryMother living 62 essential hypertension and sleep apnea s/p bariatric surgery and hx of atrial fibrillationFather 54 essential hypertension and Glioblastoma multiformeOne brother living and in good healthMenarche 12 Menopause A0 Juan Li MD [address] [facility] [facility] [address], [place], [address], [facility] [employer] 07/28/2023 12:28:32 08/22/19 24 text/htm l Pt has had ingrown nails, torres great toenails. Pt has had procedures performed several times, but the nails have regrown and the infections have recurred. Seeks definitive tx this date. Sanju Lan DPM [address] [facility], [facility] [address], [place], [address], [place] [facility] [place] [employer] [facility] 08/22/2023 16:53:23 02/22/20 24 text/htm l Patient Name: Adriana Canaleste Of Service: February ( 02.22.2024 ): 1985 [...] or has seen in the past a Body Line Finisher: No .Pain - Enjoyment of Life - General Activity ScalePain on Average: 5Enjoyment of Live: 4General Activity: 5Enjoyment of Life - General Activity Scale: 5Currently regimen consists of Mobic, Neurontin, [place] and Zanaflex as prescribed with no evidence [...] offered to be evaluated and instructed by numerical control operator on weight loss diet. Active Medication ListMobic [...] Drug Reactions ReviewedBuspar Heart Flutter Vaccination and Nppjugkjzvlv9740-98 Cbvwrcrvu1955-18 Covid [facility] Gydvvoc1209-76 Gastric Guhio4041-09 Lap Cholecystectomy Preventative Xtuucgu1308/01/2023 ALBUMIN 4.3 G/DL Social HistoryDoes not smoke or drinkWorks at [employer] Family HistoryMother living 62 essential hypertension and sleep apnea s/p bariatric surgery and hx of atrial fibrillationFather 54 essential hypertension and Glioblastoma multiformeOne brother living and in good healthMenarche 12 Menopause A0 Juan Li MD [address] [facility] [address], [place], [address], [place] [facility] [place] [employer] 02/22/2024 14:45:07 09/17/19 25 text/htm l Patient [...] or has seen in the past a Body Line Finisher: 4 .Pain - Enjoyment of Life - [...] and Immunization( ) 2024-05 INFLUENZA(X) 2021-02 COVID [employer] Surgical Umrpsqd6988-89 Gastric Wksbq3949-46 Lap Cholecystectomy Preventative Testing( ) 08/01/2023 Albumin [...] and Immunization( ) 2024-05 INFLUENZA(X) 2021-02 COVID [employer] Surgical Cexspru9740-52 Gastric Vhyhj0210-08 Lap Cholecystectomy Preventative Testing( ) 08/01/2023 Albumin 4.3 G/DL Social HistoryDoes not smoke or drinkWorks at [employer] Family HistoryMother living 62 essential hypertension and sleep apnea s/p bariatric surgery and hx of atrial fibrillationFather 54 essential hypertension and Glioblastoma multiformeOne brother living and in good healthMenarche 12 Menopause A0 Juan Li MD [address] [facility], [facility] [address], [place], [address], [place] [employer] 09/17/2024 11:26:23 OBGyn Episode No OBEpisode recorded.
--- NOTE | 2024-12-17 15:08 | ED.WOUNDLAC ---
HPI - Wound/Laceration General Chief Complaint: Wound/Laceration Stated Complaint: finger laceration Time Seen by Provider: 12/17/24 15:07 Source: patient Mode of arrival: ambulatory History of Present Illness HPI narrative: accidental laceration across the palmar side of the distal phalanx of the right index by knife prior to arrival. No other injuries. Eleven years last tetanus shot Related Data Home Medications ?Medication ?Instructions ?Recorded ?Confirmed ?Last Taken ?Type sumatriptan succinate 100 mg tablet See Rx Instructions .Route 06/14/19 09/07/23 03/13/21 History .COMPLEX PRN Headache tizanidine 4 mg tablet 4 mg PO TID 06/14/19 09/07/23 Unknown History sertraline 100 mg tablet 100 mg PO DAILY 04/06/21 09/07/23 Unknown History gabapentin 300 mg capsule 300 mg PO TID 09/07/23 09/07/23 Unknown History Allergies Allergy/AdvReac Type Severity Reaction Status Date / Time No Known Allergies Allergy Verified 09/07/23 11:42 Review of Systems Review of Systems: All systems reviewed & are unremarkable except as noted in HPI and below PMFSH Past Medical History Medical History Asthma exacerbation Bronchitis Viral infection Anxiety Back pain Migraine Surgical History Surgical History History of cholecystectomy Social History Social History Smoking status: Former smoker Alcohol intake: former Substance use: never Living arrangements: with family Occupation/Education: occupation Gender identity (if verbalized by the patient): Female Exam Narrative: General appearance: Well-developed, well-nourished Skin: Normal color Vascular: Normal peripheral pulses, normal capillary refill. 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 is normal as tested, no gross motor deficit Course Vital Signs Vital signs: Vital Signs Temperature 36.2 C L 12/17/24 15:09 Pulse Rate 88 12/17/24 15:09 Respiratory Rate 20 12/17/24 15:09 Blood Pressure 118/80 12/17/24 15:09 Pulse Oximetry 98 05/27/25 15:09 Oxygen Delivery Room Air 12/17/24 15:09 Temperature 36.2 C L 12/17/24 15:09 Pulse Rate 88 12/17/24 15:09 Respiratory Rate 20 12/17/24 15:09 Blood Pressure 118/80 12/17/24 15:09 Pulse Oximetry 98 12/17/24 15:09 Oxygen Delivery Room Air 12/17/24 15:09 Procedures Laceration Laceration 1: Date: 12/17/24 Time: 15:21 Site: other ( right index) Side (If applicable): right ( right index) Size (cm): 1 Description: linear Depth: simple, single layer Local Anesthetic: none Pre-repair: wound explored ====== Skin Level ====== Skin layer closed with: dermabond ====== Subcutaneous Layer ====== ====== Muscle Layer ====== ====== Tendon Layer ====== Critical Care Time Critical Care Time Critical Care Time: No Discharge Plan Discharge Clinical Impression: Finger laceration Patient Disposition: Home Condition: Stable Instructions: Finger Laceration (ED), Skin Adhesive Care (ED) Additional Instructions: Return if symptoms are worsening , call your family physician for appointment, take Tylenol, ibuprofen as as needed for aches and pain, continue home medications. Patient Language: Croatian Prescriptions: No Action tizanidine 4 mg tablet 4 mg PO TID sumatriptan succinate 100 mg tablet See Rx Instructions .ROUTE .COMPLEX MDD 2 tablets PRN (Reason: Headache) Rx Instructions: 100 mg orally. take at start of headache. may repeat dose after 1 hour. no more than 2 tablets in a 24 hour period sertraline 100 mg tablet 100 mg PO DAILY gabapentin 300 mg capsule 300 mg PO TID amoxicillin-pot clavulanate [Augmentin] 500-125 mg tablet 1 tablet PO TID Qty: 30 0RF mupirocin 2 % ointment 1 applic topical TID 7 Days Qty: 15 0RF tramadol [Ultram] 50 mg tablet 50 mg PO Q6H PRN (Reason: pain) Qty: 20 0RF albuterol sulfate 90 mcg/actuation HFA aerosol inhaler 2 puff inhalation QID Qty: 8.5 0RF Follow-up/Referrals: Guillermo,Kal Regan MD [Primary Care Provider] -
[2024-12-17 15:09] VITALS: BP 118/80; PULSE 88; RESP 20; TEMP 36.2; O2SAT 98
[2024-12-17] MEDS: TETANUS,DIPHTHERIA,AC PERTUSSIS ADULT 0.5 ML (ADACEL) IM (15:22)
--- OUTSIDE RECORDS SUMMARY | 2024-12-17 15:39 | XMS_ITS | Referral Summary ---
Author Organization [facility] Building [facility] Address [address] [place] [address] Care Team Providers Care Tax Assistant Name Role Phone Kal Li MD Primary [...] change. Assessment & Plan (09/13/2022 8:49 AM FRAME SAMPLE AND PATTERN SUPERVISOR): Continue small frequent meals. Continue to exercise [...] reassess Assessment & Plan (09/23/2021 9:55 AM FRAME SAMPLE AND PATTERN SUPERVISOR): Given their past success the patient would [...] 03/14/2023 Assessment & Plan (06/14/2022 9:00 AM FRAME SAMPLE AND PATTERN SUPERVISOR): Continue small frequent meals. Okay to return [...] been discussed and handout given. We will enrollment counselor the patient to avoid for at [...] on file Legal Sex Female 7:38 PM FRAME SAMPLE AND PATTERN SUPERVISOR Gender Identity Female 09/12/2022 7:43 PM FRAME SAMPLE AND PATTERN SUPERVISOR Sexual Orientation Straight 09/12/2022 7: 43 PM FRAME SAMPLE AND PATTERN SUPERVISOR Last Filed Vital Signs Vital Sign Reading [...] Plan of Treatment Not on file Insurance [facility] Advance Directives For more information, please contact: [phone] * Full Code (Latest Code Status on File) Date Activated Date Inactivated Comments 05/04/2022 3:34 PM 05/06/2022 7:18 PM * Full Code Date Activated Date Inactivated Comments 02/08/2022 12:38 PM 02/08/2022 6:44 PM * Full Code Date Activated Date Inactivated Comments 02/08/2022 12:38 PM 02/08/2022 12:38 PM Care Teams Tax Assistant Relationship Specialty Start Date End Date Kal Li MD [address] [address] PCP - General Internal Medicine 08/27/21
--- OUTSIDE RECORDS SUMMARY | 2024-12-17 15:39 | XMS_ITS | Clinical Summary ---
Author Organization [facility] Office Building [address] Address [address] [place] [address] Care Team Providers Care Executive Chairman Of The Board Name Role Phone Kal Li MD Primary [...] change. Assessment & Plan (09/13/2022 8:49 AM CONCESSION ATTENDANT): Continue small frequent meals. Continue to exercise [...] reassess Assessment & Plan (09/23/2021 9:55 AM CONCESSION ATTENDANT): Given their past success the patient would [...] 03/14/2023 Assessment & Plan (06/14/2022 9:00 AM CONCESSION ATTENDANT): Continue small frequent meals. Okay to return [...] been discussed and handout given. We will psychologist counseling the patient to avoid for at least [...] on file Legal Sex Female 7:38 PM CONCESSION ATTENDANT Gender Identity Female 09/12/2022 7:43 PM CONCESSION ATTENDANT Sexual Orientation Straight 09/12/2022 7: 43 PM CONCESSION ATTENDANT Obstetrics History Last Filed Vital Signs Vital [...] patient's age to complete this topic Insurance [facility] Advance Directives For more information, please contact: [phone] * Full Code (Latest Code Status on File) Date Activated Date Inactivated Comments 05/04/2022 3:34 PM 05/06/2022 7:18 PM * Full Code Date Activated Date Inactivated Comments 02/08/2022 12:38 PM 02/08/2022 6:44 PM * Full Code Date Activated Date Inactivated Comments 02/08/2022 12:38 PM 02/08/2022 12:38 PM Care Teams Executive Chairman Of The Board Relationship Specialty Start Date End Date Kal Li MD [address] [facility] [address] [place] [address] PCP - General Internal Medicine 08/27/21
== END 2024-12-17 15:35 | disposition home or self-care (01) ==
LOC: CHSED 15:37
PROVIDERS: Emergency Provider Emergency Medicine; PCP Internal Medicine
DX: S61.210A Laceration without foreign body of right index finger without damage to nail, initial encounter (principal); J45.909 Unspecified asthma, uncomplicated; Z87.891 Personal history of nicotine dependence; Z23 Encounter for immunization; W26.0XXA Contact with knife, initial encounter
CPT/HCPCS: 12001; 90471; 90715; 99283